=== PATIENT | male | born 1990 | race Caucasian/White ===

== ENCOUNTER 2021-03-23 10:15 | Emergency (ER) | payer OTHER, SELFPAY ==
--- NOTE | 2021-03-23 10:22 | ED_ITS ---
HPI - Overdose General Chief Complaint: Overdose Stated Complaint: heroin overdose, got narcan Time Seen by Provider: 03/23/21 10:22 Source: patient Mode of arrival: ambulatory Limitations: no limitations History of Present Illness HPI Narrative: 30-year-old presenting to the emergency department status post overdosing on heroin. Patient tells me he is homeless, he sniffed 1 bag of heroin just prior to his arrival, he tells me he did it because he was cold. He had no intent of suicide. Patient has no complaints, he tells me he feels well, he tells me that this was an accident. He denies anxiety, depression, visual, auditory, tactile hallucinations he also denies chest pain, shortness of breath, fevers cut when chills, nausea, vomiting, diarrhea. Patient was given Narcan by EMS. MD complaint: accidental overdose Onset (ago): hour(s) (1) Timing confirmed by: other (bystandard ) Related Data Previous Rx's Medication Instructions Recorded naloxone 4 mg/actuation nasal spray 4 mg INTRANASAL Q2M PRN #1 ea 03/23/21 Allergies Allergy/AdvReac Type Severity Reaction Status Date / Time No Known Allergies Allergy Unverified 12/01/19 16:59 Review of Systems Review of Systems: Constitutional : No Fever, No Chills ENT/Mouth : No sore throat, No Rhinorrhea Eyes: No Eye Pain, No Swelling, No Redness Cardiovascular : No Chest Pain, No SOB Respiratory : No Cough, No Sputum Gastrointestinal : No Nausea, No Vomiting, No Diarrhea, No abdominal Pain Genitourinary : No Dysuria, No Hematuria Musculoskeletal : No joint pain, No Myalgias, No Joint Swelling Skin : No Skin Lesions, No rash Neuro : No Weakness, No Numbness Psych : No Anxiety, No Depression, No SI/HI/AH/VH All other systems reviewed and are negative Yes all other systems are reviewed and are negative [facility] Past Medical History Attestation statement: The following information was validated with the patient. Source: old records reviewed and nursing notes reviewed Medical History (Updated 03/23/21 @ 10:30 by RUSS Beaulieu) Schizophrenia Surgical History (Updated 03/23/21 @ 10:30 by Junior Hooker) H/O wrist surgery Social History Social History Advance Directives: No Advance Directives Information Provided: Yes Physical Exam Vital Signs: Vital Signs: Last Vital Signs Pulse 89 03/23/21 10:27 Resp 16 03/23/21 10:27 BP 126/74 03/23/21 10:27 Pulse Ox 95 03/23/21 10:27 BMI result Body Mass Index 27.4 VSS Appearance: Alert.? Oriented X3.? No acute distress.? Head: Normocephalic, atraumatic, no step-offs or deformities Eyes: Pupils equal, round and reactive to light.? Bilateral pupils pinpoint. ENT: Pharynx normal.? Neck: Normal inspection.? Neck supple.? CVS: Normal heart rate and rhythm.? Pulses normal.? Respiratory: No respiratory distress.? Breath sounds normal.? Abdomen: Soft and nontender.? Skin: Skin warm and dry.? Normal skin color.? Normal skin turgor.? Extremities: No lower extremity edema.? No calf ttp. 5/5 strength to bilateral upper and lower extremities Back: No midline tenderness, no C-spine tenderness, full range of motion, no CVA tenderness bilaterally Neuro: Oriented X 3.? No motor deficit.? No sensory deficit. Cranial nerves 2- 12 intact. Course Reevaluation(s) Reevaluation #1: Patient is feeling well, still denying any medical complaints. At this time I feel comfortable discharge. Patient is stable. He is eating and drinking well. Regan spoke to patient and gave him information about detox [facility], he also provided patient with information of how to obtain a therapist as patient does not have 1. At this time patient is feeling well, he has no complaints. We gave him a sandwich, dry socks. I feel comfortable with discharging patient at this time. Time: 10:29 MDM - Overdose MDM Narrative Medical decision making narrative: 1028 30-year-old male presenting to the emergency department with a heroin overdose after sniffing 1 packet heroin. Accidental overdose. No SI or HI. Patient is homeless. I have offered him resources, and have offered for him to speak to somebody about a possible penitentiary. Patient tells me he is not interested, he tells me he does not on 11 a penitentiary. He has no medical complaints at this time. He was given Narcan 4 mg intranasal by EMS. Physical examination benign Plan at this time is to observe patient. Medical Records Attestation: I reviewed the patient's medical records. Lab Data Attestation: I reviewed the patient's lab results. Critical Care Time Critical Care Time Critical Care Time: No Discharge Plan Discharge Clinical Impression: Opiate overdose Patient Disposition: Home, Self-Care Instructions: Prescription Narcotic Overdose (ED) Additional Instructions: Take your medications as prescribed. If you were prescribed antibiotics today, it is important that you take your medication to their entirety, do not skip any doses, do not finish them early. Follow-up with your primary care provider this week. You were given information about [facility], and you are given information on how to obtain a therapist. Please call in use these resources. Return to the emergency department with new or worsening symptoms. In case of emergency call 911 I have sent Narcan to your pharmacy, this can save her life, or somebody else's. Prescriptions: New naloxone 4 mg/actuation spray,non-aerosol 4 mg intranasal Q2M PRN (Reason: opioid overdose) Qty: 1 RF: 0
[2021-03-23 10:27] VITALS: BP 126/74; PULSE 89; RESP 16; O2SAT 95; BMI 27.4
--- NOTE | 2021-03-23 11:17 | HO.SUDE ---
Recovery Support note: Patient is a 30 year old Filipino speaking male who presented to [facility] after an accidental overdose. Patient reports he used to stay warm because he did not want to go to a alf as he has had poor experiences with shelters in the past. Patient reports he does not use frequently and that he decided several days ago to stop using all drugs. Patient reports no alcohol use. Patient reports one previous overdose. Patient states he went to [facility] 4-5 years ago for treatment and found it helpful. Patient is agreeable to going back for treatment however no beds are available at this time. Patient reports he has never been on methadone or Suboxone and reports he does not use heroin frequently or consistently. Patient reports he has never experienced withdrawal symptoms. Patient accepted information on [facility] and ATS facilities. Encouraged patient to go to [facility] on Thursday to work with a curriculum coach to get into treatment and connected with resources. Patient acknowledged Patient expressed interest in getting connected with a therapist. Patient accepted information on outpatient therapy clinics. Unable to accept referral due to not having a cell phone. Discussed substance use treatment options and multiple pathways to recovery. Patient was receptive of information provided.
--- NOTE | 2021-03-23 12:25 | PC.NURSE ---
PT EATING AND DRINKING HE IS NODDING OFF. PLAN IS FOR DISCHARGE WHEN MORE AWAKE
== END 2021-03-23 12:34 | disposition home or self-care (01) ==
PROVIDERS: Emergency Provider Internal Medicine
DX: T40.1X1A Poisoning by heroin, accidental (unintentional), initial encounter (principal); Y92.410 Unspecified street and highway as the place of occurrence of the external cause; Z59.00 Homelessness unspecified
CPT/HCPCS: 99282; 99283

== ENCOUNTER 2021-04-04 19:17 | Emergency (ER) | payer OTHER, SELFPAY ==
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
[2021-04-04 19:52] VITALS: BP 126/82; PULSE 72; RESP 18; O2SAT 100; BMI 28.3
[2021-04-04 20:10] VITALS: BP 114/64; PULSE 66; RESP 18; TEMP 36.6; O2SAT 98
[2021-04-04 20:34] LABS: COVID-19 Test Positive (Negative)
--- NOTE | 2021-04-04 20:39 | HO.SUDE ---
CARE Team met with pt to offer SUDE and to see if pt is interested in treatment resources. Pt originally agreed to participate in SUDE, however, his altered mental status prevented him from engaging in SUDE at this time. Pt indicated that he would like to speak with a project coach and that he is interested in treatment resources. CARE Team informed project coach, Frederic, about pt's desire to speak with him when pt is more alert.
--- NOTE | 2021-04-04 20:50 | MHC.RECOVSUP ---
Met with Pt. he stated that he would like to go to detox.As I started to see if I could find a bed for Pt. The doctor came and told me that the Pt. is positive for covid.At this time the doctor decided to call [facility] for a assessment. Pt. is waiting for [facility] at this time.
[2021-04-04] MEDS: Ondansetron ODT 4 MG TAB.RAPDIS TRANSLINGU (20:56)
[2021-04-04 21:32] VITALS: BP 112/63; PULSE 58; RESP 11; TEMP 36.4; O2SAT 97
[2021-04-04 22:21] VITALS: BP 102/56; PULSE 56; RESP 9; TEMP 36.6; O2SAT 96
--- NOTE | 2021-04-05 00:09 | PC.NURSE ---
Report given to Keke RN, pt ambulatory to pod via security. Belongings remain in decon
--- NOTE | 2021-04-05 00:28 | PC.NURSE ---
Pt received in pod without issues, ambulating steady on his feet. Denies chest pain or SOB. Vitals stable. Pt changed over to pod gown and urine collected. Pt resting in bed in 1, will continue to monitor.
[2021-04-05 00:46] LABS: Amphetamine Screen Urine Not Detected (Not Detect); Barbiturates, Urine Not Detected (Not Detect); Benzodiazepines Screen Urine Not Detected (Not Detect); Cannabinoid Screen Urine POSITIVE (Not Detect); Cocaine Screen Urine POSITIVE (Not Detect); Fentanyl, urine POSITIVE (Not Detect); Opiate Screen Urine POSITIVE (Not Detect); Phencyclidine Screen Urine Not Detected (Not Detect)
[2021-04-05 02:32] VITALS: BP 118/71; PULSE 78; RESP 17; TEMP 36.7; O2SAT 100
--- NOTE | 2021-04-05 06:59 | PC.NURSE ---
patient appears to remain asleep at present, respirations are even and unlabored patient appears in no distress
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
--- NOTE | 2021-04-05 11:44 | MHC.CARE ---
CARE Team left voicemail for [facility]
--- NOTE | 2021-04-05 17:09 | PC.NURSE ---
Patient is resting comfortably in bed no s/s of sob or distress. will continue to monitor.
[2021-04-05 23:41] VITALS: BP 138/69; PULSE 77; RESP 18; TEMP 36.9; O2SAT 98
--- NOTE | 2021-04-06 06:23 | PC.NURSE ---
Patient slept through the night, no distress observed/reported, asymptomatic of withdrawal at this time, patient covid +. care team coordinating assisted bed search, pending bed search, VSS, currently not on nay medication, VSS, will continue to monitor.
== END 2021-04-06 10:57 | disposition other institution (70) ==
PROVIDERS: Physician Assistant; Emergency Provider Internal Medicine
DX: U07.1 COVID-19 (principal); T40.1X1A Poisoning by heroin, accidental (unintentional), initial encounter; Y92.89 Other specified places as the place of occurrence of the external cause; Z72.89 Other problems related to lifestyle; Z59.00 Homelessness unspecified; F41.9 Anxiety disorder, unspecified; F32.A Depression, unspecified; F20.9 Schizophrenia, unspecified
CPT/HCPCS: 80307; 87635; 99285

== ENCOUNTER 2021-06-10 00:27 | Emergency (ER) | payer OTHER, SELFPAY ==
[2021-06-10 00:42] VITALS: BP 101/52; PULSE 90; RESP 18; TEMP 37.7; O2SAT 94; BMI 26.6
[2021-06-10 02:24] LABS: MANUAL DIFF FLAG NO
[2021-06-10 02:25] LABS: Basophils Percent Auto 0.2 % (0-2); Eosinophils Absolute Auto 0.1 X10*3/uL (0.0-0.4); Hematocrit 40.9 % (42.0-52.0); Imm Gran Abs Auto 0.02 X10*3/uL (0.00-0.03); Imm Gran Pct Auto 0.2 % (0.0-0.4); Lymphocytes Absolute Auto 3.1 X10*3/uL (1.2-4.9); Lymphocytes Percent Auto 24.5 % (20-40); Mean Corpuscular HGB Conc 31.8 g/dl (31.0-36.0); Mean Corpuscular Hemoglobin 27.5 pg (27.0-33.0); Mean Corpuscular Volume 86.5 fL (80.0-98.0); Mean Platelet Volume 10.2 fL (9.4-12.4); Monocytes Percent Auto 8.1 % (2-11); Neutrophils Absolute Auto 8.3 x10*3/uL (2.0-8.3); Platelet Count 254 X10*3/uL (160-400); Red Blood Count 4.73 X10*6/uL (4.60-5.80); Red Cell Distribution Width 13.4 % (11.0-16.0); White Blood Count 12.5 X10*3/uL (4.8-10.8)
[2021-06-10 02:37] VITALS: BP 118/67; PULSE 74; RESP 14; TEMP 36.9; O2SAT 98
[2021-06-10 02:47] LABS: Alanine Aminotransferase 20 U/L (0-40); Albumin Level 4.4 g/dL (3.5-5.0); Alkaline Phosphatase 52 U/L (39-117); Anion Gap 14 (12-20); Aspartate Amino Transferase 24 U/L (5-37); Bilirubin Direct < 0.2 mg/dL (0.0-0.5); Bilirubin Total 0.4 mg/dL (0.0-1.0); Blood Urea Nitrogen 15 mg/dL (9-16); Calcium 9.4 mg/dL (8.4-10.2); Carbon Dioxide 27 mmol/L (22-29); Chloride 103 mmol/L (96-108); Creatinine Clr Calc Pharmacy 88.6; Estimated Glomerular Filt Rate > 60; Glucose Random 91 mg/dL (60-115); Lipase 11 U/L (8-78); Potassium 3.7 mmol/L (3.3-5.1); Sodium 140 mmol/L (135-145); Total Protein 8.1 g/dL (6.5-8.0)
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
--- NOTE | 2021-06-10 03:28 | PC.NURSE ---
pt c/o generalized rt sided abd pain, somewhat erractic with his story on how pain presented. initally pt stated 3 days of abd pain, then stated that he hasnt eaten in 5 days. pt asking if he put himself at risk for figuring out that the ariane vincent wasnt real continued to go on that he was at a zoo, and looking in the sewers and saw a crocodile. pt stated that when he was sleeping in his tent he could feel animals from his feet to his head. pt states that was the last time he was at his tent. when asked where he is living now, pt states I make it work
--- NOTE | 2021-06-10 04:13 | ED.GENADULT ---
HPI - General Adult General Chief complaint: Abdominal Pain Stated complaint: Stomach Pain, requests details on stroke? Time Seen by Provider: 06/10/21 04:05 Source: patient Mode of arrival: ambulatory Limitations: no limitations History of Present Illness HPI narrative: 31-year-old male who presents emergency department for evaluation of left facial numbness. The patient states that he has been having numbness on the left side of his face. He states he is having difficulty spitting straight and he is having difficulty whistling. States that he saw his PCP several days ago and the PCP told him to go to the emergency department. the patient has no other complaints. He denied fever, chills, chest pain, shortness of breath, cough, abdominal pain, nausea, vomiting, weakness, numbness of his extremities. The patient states that he does have a history of depression, anxiety and schizophrenia, he states that he has not been started on any new medications. complaint: Left facial numbness Onset (ago): day(s) ( 3) Location: face ( left side) Radiation: non-radiation Severity: moderate Severity scale (1-10): 3 Quality: other ( numbness) Pain Consistency: constant Relieving factors: none Exacerbating factors: none Associated symptoms: other ( difficulty whistling, difficulty spitting) Treatments prior to arrival: none Related Data Home Medications Medication Instructions Recorded Confirmed olanzapine 15 mg tablet 2 tab PO BEDTIME 06/10/21 06/10/21 trazodone 50 mg tablet 1 tab PO BEDTIME PRN 06/10/21 06/10/21 Allergies Allergy/AdvReac Type Severity Reaction Status Date / Time No Known Allergies Allergy Unverified 12/01/19 19:50 [No Known Allergies*] Review of Systems Review of Systems: Yes all other systems are reviewed and are negative [facility] Past Medical History [facility] Narrative: past medical history: Depression, anxiety, schizophrenia. Social history: He smokes 1 pack of cigarettes per day x2 years. He states that he only occasionally drinks alcohol. States that he uses crack cocaine and last used 3 weeks ago. He states that he smokes marijuana daily. Medical History Depression No known health problems Social History Social History Advance Directives: No Advance Directives Information Provided: Yes Physical Exam ED Vital Signs: Vital Signs - 24 hr 06/10/21 00:42 06/10/21 02:37 Temperature 99.8 F 98.4 F Pulse Rate 90 74 Respiratory Rate 18 14 Blood Pressure 101/52 L 118/67 Pulse Oximetry 94 98 BMI result Body Mass Index 26.6 Const General: cooperative and no acute distress Orientation/consciousness: oriented to person and oriented to place Limitations: no limitations HENMT Head: Yes normal to inspection, Yes normocephalic and Yes atraumatic Ears: external ears normal General nose exam: Normal external nose present Face and sinus: Yes normal facial exam Mouth: Normal oral and palatal mucosa present Throat: Yes posterior oropharynx normal Eyes General: appearance normal, both eyes and all related structures Pupils: Equal, round and reactive pupils present Neck Neck: Yes normal visual inspection, Yes no lymphadenopathy, Yes trachea midline and Yes supple Chest Chest palpation & inspection: normal inspection of the chest and normal palpation of entire chest wall Resp Effort & Inspection: normal respiratory effort and able to speak in complete sentences Auscultation: clear to auscultation bilaterally Cardio Rate: regular rate Rhythm: regular rhythm Heart sounds: S1 normal heart sound present, S2 normal heart sound present and no murmurs GI Inspection: Yes normal to inspection Palpation (GI): Soft to palpation, nontender and no guarding Auscultation: normal bowel sounds General: Yes no CVA tenderness Back/Spine/Pelvis Back: no CVA tenderness Skin General skin exam: no rashes or lesions noted Neuro General: oriented to person and oriented to place Cranial nerves: Yes CN's II-XII intact bilaterally and Yes Equal, round and reactive pupils present Cognition (Neuro): normal cognition Motor exam (neuro): 5/5 motor strength present throughout Extrem General: Yes normal to inspection Psych Appearance: grossly normal Speech and movement: Normal speech and movement present Affect: normal affect Attitude: cooperative Course Course Course Narrative: 31-year-old male who presents emergency department for evaluation of left sided facial numbness x3 days. Patient's vital signs were normal. Patient's physical examination was unremarkable with normal cranial nerve exam and a normal neurologic exam. At this time, I do not think the patient has had a stroke or Terry's palsy. Patient's symptoms may be related to his underlying psychiatric condition/schizophrenia. At this time, I do not think the patient needs any further treatment I did discuss this with him. The patient was discharged home. Medical Decision Making Lab Data Result diagrams: 06/10/21 02:20 06/10/21 02:20 Labs: Lab Results 06/10/21 06/10/21 Range/Units 02:20 02:20 WBC 12.5 H (4.8-10.8) X10*3/uL RBC 4.73 (4.60-5.80) X10*6/uL Hgb 13.0 L (14.0-18.0) g/dl Hct 40.9 L (42.0-52.0) % MCV 86.5 (80.0-98.0) fL MCH 27.5 (27.0-33.0) pg MCHC 31.8 (31.0-36.0) g/dl RDW 13.4 (11.0-16.0) % Plt Count 254 (160-400) X10*3/uL MPV 10.2 (9.4-12.4) fL Immature Gran % (Auto) 0.2 (0.0-0.4) % Neut % (Auto) 66.0 (45-73) % Lymph % (Auto) 24.5 (20-40) % [place] % (Auto) 8.1 (2-11) % Eos % (Auto) 1.0 (0-4) % Baso % (Auto) 0.2 (0-2) % Lymph # (Auto) 3.1 (1.2-4.9) X10*3/uL [place] # (Auto) 1.0 (0.1-1.2) X10*3/uL Eos # (Auto) 0.1 (0.0-0.4) X10*3/uL Baso # (Auto) 0.0 (0.0-0.2) X10*3/uL Abs Immat Gran (auto) 0.02 (0.00-0.03) X10*3/uL Absolute Neuts (auto) 8.3 (2.0-8.3) x10*3/uL Absolute Nucleated RBC 0.000 (0.0-0.012) X10*3/uL Nucleated RBC % (auto) 0.0 (0.0-0.2) /100WBC Sodium 140 (135-145) mmol/L Potassium 3.7 (3.3-5.1) mmol/L Chloride 103 (96-108) mmol/L Carbon Dioxide 27 (22-29) mmol/L Anion Gap 14 (12-20) BUN 15 (9-16) mg/dL Creatinine 1.06 (0.5-1.4) mg/dL Estim Creat Clear Calc 88.6 Estimated GFR > 60 Random Glucose 91 (60-115) mg/dL Calcium 9.4 (8.4-10.2) mg/dL Total Bilirubin 0.4 (0.0-1.0) mg/dL Direct Bilirubin < 0.2 (0.0-0.5) mg/dL AST 24 (5-37) U/L ALT 20 (0-40) U/L Alkaline Phosphatase 52 (39-117) U/L Total Protein 8.1 H (6.5-8.0) g/dL Albumin 4.4 (3.5-5.0) g/dL Lipase 11 (8-78) U/L Discharge Plan Discharge Clinical Impression: Left facial numbness Patient Disposition: Home, Self-Care Additional Instructions: your physical examination is normal. At this time, I do not think that you had a stroke and that your symptoms should get better over time. Follow-up with your doctor in 2 days. Please return to the emergency department if your symptoms get worse or if you develop any symptoms that are concerning to you. Prescriptions: No Action trazodone 50 mg tablet 1 tab PO BEDTIME PRN (Reason: insomnia) 0RF olanzapine 15 mg tablet 2 tab PO BEDTIME 0RF
== END 2021-06-10 04:58 | disposition home or self-care (01) ==
PROVIDERS: Emergency Provider Emergency Medicine Emergency Medical Services
DX: R20.0 Anesthesia of skin (principal); F20.9 Schizophrenia, unspecified; F41.9 Anxiety disorder, unspecified; F32.A Depression, unspecified; F14.90 Cocaine use, unspecified, uncomplicated; F12.90 Cannabis use, unspecified, uncomplicated; F17.200 Nicotine dependence, unspecified, uncomplicated; Z79.899 Other long term (current) drug therapy
CPT/HCPCS: 36415; 80048; 80076; 83690; 85025; 99283; 99284

== ENCOUNTER 2023-01-21 21:17 | Inpatient (IN) | payer OTHER, SELFPAY ==
[2023-01-21 21:24] VITALS: BP 147/84; PULSE 90; RESP 16; TEMP 38.1; O2SAT 95; BMI 34.9
--- NOTE | 2023-01-21 21:30 | ED_ITS ---
HPI - Psych General Chief Complaint: Psychiatric Symptoms Stated Complaint: HEARING VOICES,SCHIZOPHRENIC, HASNT TAKEN MEDS Time Seen by Provider: 01/21/23 21:20 Source: patient and old records reviewed Mode of arrival: EMS Limitations: no limitations History of Present Illness HPI Narrative: 32 yo male with PMH of schizophrenia states he hasn't taken his medications in a few weeks and was actually reported missing. He has been sleeping outside and stuffing his clothes with toilet paper to stay warm. He was found at [facility]. He reports AH/VH and SI thoughts. He has no medical complaints. He is calm and cooperative. MD complaint: suicidal ideation and hallucinations Onset (ago): week(s) Duration: getting worse History of same: Yes Relieving factors: none Exacerbating factors: other Context: not taking psychiatric medications Associated psychiatric symptoms: suicidal ideation, auditory hallucinations and visual hallucinations Associated symptoms: denies other symptoms Treatments prior to arrival: placed on mental health hold If self harm: admits thoughts of self harm Related Data Home Medications Medication Instructions Recorded Confirmed divalproex 500 mg tablet,delayed 500 mg PO BID 01/21/23 01/21/23 release nicotine (polacrilex) 2 mg gum 2 mg PO Q2H PRN Nicotine Cravings 01/21/23 01/21/23 olanzapine 10 mg disintegrating 10 mg PO BEDTIME 01/21/23 01/21/23 tablet Allergies Allergy/AdvReac Type Severity Reaction Status Date / Time No Known Allergies Allergy Unverified 01/21/23 12:49 Review of Systems Review of Systems: Constitutional : No Fever, No Chills ENT/Mouth : No Ear Pain, No Nasal Congestion, No sore throat Eyes: No Eye Pain, No Swelling, No Redness Cardiovascular : No Chest Pain, No SOB Respiratory : No Cough, No Sputum, No Dyspnea Gastrointestinal : No Nausea, No Vomiting, No Diarrhea, No Hematochezia, No Melena Genitourinary : No Dysuria, No Urinary Frequency, No Hematuria Musculoskeletal : No Myalgias Skin : No Skin Lesions, No rash Neuro : No Weakness, No Numbness, No Paresthesias, No Dizziness, No Headache Psych : positive Anxiety, positive Depression, positive SI, no HI, pos AH/VH Heme/Lymph: No Lymphadenopathy Endocrine : No Polyuria, No Polydipsia All other systems reviewed and are negative [facility] Past Medical History Attestation statement: The following information was validated with the patient. Source: old records reviewed Medical History Depression No known health problems Schizophrenia Surgical History H/O wrist surgery Social History Social History Patient Tobacco Use Status: Tobacco use Unknown Substance Use Type: Heroin Physical Exam Vital Signs: Vital Signs: Last Vital Signs Temp 100.5 F H 01/21/23 21:24 Pulse 90 01/21/23 21:24 Resp 16 01/21/23 21:24 BP 147/84 H 01/21/23 21:24 Pulse Ox 95 01/21/23 21:24 O2 Del Method Room Air 01/21/23 21:24 BMI result Body Mass Index 34.9 Appearance: Alert. Oriented X3. No acute distress. calm and cooperative Eyes: Pupils equal, round and reactive to light. ENT: Pharynx normal. Neck: Normal inspection. Neck supple. CVS: Normal heart rate and rhythm. Pulses normal. Respiratory: No respiratory distress. Breath sounds normal. Abdomen: Soft and nontender. Skin: Skin warm and dry. Normal skin color. Normal skin turgor. Extremities: No lower extremity edema. No calf ttp Neuro: Oriented X 3. No motor deficit. No sensory deficit. CN2-12 intact Course Course Course Narrative: Physician observation started at 1002pm. Patient placed in physician observation because the patient needed more time for CARE team to assess the need for psych admission. At the time observation was started the patient's vitals were stable, patient is alert and oriented, Neuro: nonfocal, CV RRR, Lungs clear Medical Decision Making Medical Decision Making MDM Narrative: 32 yo male with schizophrenia here with c/o AH/VH, SI was a missing person not taking his medications sleeping outside at this time will obtain labs and place on S12. Refer to CARE team. Differential Diagnosis Differential Diagnoses: The differential diagnosis associated with the presentation includes schizophrenia, SI Admission/Observation Consideration of admission/observation: Escalation of care including admission/observation considered observe until seen by CARE team Consult Healthcare Provider Management of the patient was discussed with: Behavioral Health Provider Lab Data [facility] Lab Attestation statement: I reviewed the patient's lab results. Independent Historian Clinical information obtained from an independent historian. History obtained from or confirmed by: EMS External Record Review External record reviewed: Inpatient record Social Determinants Patient?s care significantly limited by Social Determinants of Health including: Inadequate housing and Problems related to primary support group Discharge Plan Discharge Clinical Impression: Suicidal ideation Patient Disposition: Still a Patient Prescriptions: No Action nicotine (polacrilex) 2 mg gum 2 mg PO Q2H PRN (Reason: Nicotine Cravings) divalproex 500 mg tablet,delayed release (DR/EC) 500 mg PO BID olanzapine 10 mg tablet,disintegrating 10 mg PO BEDTIME
[2023-01-21] MEDS: Acetaminophen 325 MG TABLET 650 MG PO (22:44)
[2023-01-21 22:52] LABS: COVID-19 Test Negative (Negative); IDNOW Serial# BCCEAD1C
[2023-01-21 22:53] LABS: IDNOW Serial# 08D9AD1C; Influenza A Negative (Negative); Influenza B2 Negative (Negative)
--- NOTE | 2023-01-22 | ECG_ITS ---
Test Reason : CHECK QT Blood Pressure : / mmHG Vent. Rate : 054 BPM Atrial Rate : 054 BPM P-R Int : 156 ms QRS Dur : 104 ms QT Int : 406 ms P-R-T Axes : -10 023 005 degrees QTc Int : 385 ms Sinus bradycardia RSR' or QR pattern in V1 suggests right ventricular conduction delay Otherwise normal ECG When compared with ECG of 17-JAN-2014 21:31, No significant change was found Referred By: Sonya Gross Electronically Signed By:BUCK AVILA MD
[2023-01-22 00:19] LABS: Basophils Absolute Auto 0.1 X10*3/uL (0.0-0.2); Basophils Percent Auto 0.4 % (0-2); Eosinophils Absolute Auto 0.6 X10*3/uL (0.0-0.4); Eosinophils Percent Auto 5.1 % (0-4); Hematocrit 38.9 % (42.0-52.0); Hemoglobin 12.8 g/dl (14.0-18.0); Imm Gran Abs Auto 0.04 X10*3/uL (0.00-0.03); Imm Gran Pct Auto 0.4 % (0.0-0.4); Lymphocytes Absolute Auto 3.7 X10*3/uL (1.2-4.9); Lymphocytes Percent Auto 32.7 % (20-40); MANUAL DIFF FLAG NO; Mean Corpuscular HGB Conc 32.9 g/dl (31.0-36.0); Mean Corpuscular Hemoglobin 27.8 pg (27.0-33.0); Mean Corpuscular Volume 84.4 fL (80.0-98.0); Mean Platelet Volume 10.5 fL (9.4-12.4); Monocytes Absolute Auto 1.2 X10*3/uL (0.1-1.2); Monocytes Percent Auto 10.9 % (2-11); Neutrophils Absolute Auto 5.7 x10*3/uL (2.0-8.3); Neutrophils Percent Auto 50.5 % (45-73); Platelet Count 280 X10*3/uL (160-400); Red Blood Count 4.61 X10*6/uL (4.60-5.80); Red Cell Distribution Width 13.1 % (11.0-16.0); White Blood Count 11.3 X10*3/uL (4.8-10.8)
[2023-01-22 00:40] LABS: Carbon Dioxide 26 mmol/L (22-29); Chloride 104 mmol/L (96-108); Potassium 3.7 mmol/L (3.3-5.1); Sodium 141 mmol/L (135-145)
[2023-01-22 00:41] LABS: Alanine Aminotransferase 14 U/L (0-40); Albumin Level 4.9 g/dL (3.5-5.0); Alkaline Phosphatase 62 U/L (39-117); Anion Gap 15 (12-20); Aspartate Amino Transferase 18 U/L (5-37); Bilirubin Total 0.3 mg/dL (0.0-1.0); Blood Urea Nitrogen 16 mg/dL (9-16); Calcium 10.1 mg/dL (8.4-10.2); Creatinine Clr Calc Pharmacy 91.5; Estimated Glomerular Filt Rate > 60; Glucose Random 84 mg/dL (60-115); Total Protein 8.9 g/dL (6.5-8.0)
[2023-01-22 00:42] LABS: Amphetamine Screen Urine Not Detected (Not Detect); Barbiturates, Urine Not Detected (Not Detect); Benzodiazepines Screen Urine Not Detected (Not Detect); Cocaine Screen Urine Not Detected (Not Detect); Opiate Screen Urine Not Detected (Not Detect); Phencyclidine Screen Urine Not Detected (Not Detect)
[2023-01-22 00:42] LABS: Ethanol < 10 mg/dL
[2023-01-22 00:43] LABS: Cannabinoid Screen Urine POSITIVE (Not Detect); Fentanyl, urine Not Detected (Not Detect)
--- NOTE | 2023-01-22 05:51 | PC.NURSE ---
Patient slept through the night, no distress observed/reported, behavior non concerning, thought content paranoid, med rec completed/pending provider's approval, labs completed/resulted, disposition per care team is section-12 inpatient bed search, VSS, will continue to monitor.
[2023-01-22 06:26] VITALS: BP 95/45; PULSE 54; RESP 17; TEMP 36.8; O2SAT 98
--- NOTE | 2023-01-22 07:03 | PC.NURSE ---
patient appears to remain asleep at present respirations are even and unlabored patient appears in no distress
--- NOTE | 2023-01-22 11:47 | PC.NURSE ---
client making agitated statements to air stating hes the charge and just self dialoguing to air. client offered medication t/w stated you sound irritable client just continues to talk to self. hindu theme with content.
[2023-01-22 11:56] LABS: Appearance Urine Clear; Color Urine Yellow; Glucose Urine UA Negative (Negative); Leukocyte Esterase Urine Negative (Negative); Nitrite Urine Negative (Negative); PH 5.5 (5.0-9.0); Specific Gravity - Urine >= 1.030 (1.005-1.025); UMIC TRIGGER UACC YES; Urine Blood Negative (Negative); Urine Ketones Trace mg/dL (Negative); Urine Protein 30 (1+) mg/dL (Neg-Trace)
[2023-01-22 11:59] LABS: Bacteria Urine None Seen (None Seen); Hyaline Casts Urine 0-2 /LPF (0-2); RBC Urine 0-2 /HPF (0-2); Squamous Epithelial Cell Urine 0-2 /HPF (0-2); WBC Urine 0-5 /HPF (0-5)
[2023-01-22] MEDS: LORazepam 1 MG TABLET 2 MG PO (12:22)
[2023-01-22] MEDS: Ziprasidone 20 MG CAPSULE PO (12:22)
--- NOTE | 2023-01-22 15:17 | PHA.MEDREC ---
Pharmacy Consult ? Medication Reconciliation Pharmacy has reviewed the medication reconciliation completed by nursing.
--- OUTSIDE RECORDS SUMMARY | 2023-01-22 15:49 | XMS_ITS | Continuity of Care Document ---
Author Name Unknown Organization [facility] Adult Address [address] [place] [address]- Care Team Providers Care Slurry Plant Operator Name Role Phone Davina PERRY, Located Within [facility] Primary Care Physician ( [phone] Encounter [facility] [place] Date(s): 05/20/21 - 05/27/[address] [address]- Attending Physician: Davina PERRY Located Within [facility] Allergies, Adverse Reactions, Alerts No Known Allergies Immunizations Given and Recorded Vaccine Date Status Refusal Reason tetanus/diphtheria/pertussis, acel(Tdap) 1 04/22/21 Given influenza virus vaccine, inactivated 04/02/21 Damon rded influenza virus vaccine, inactivated 12/07/19 Give n SARS-CoV-2 (COVID-19) mRNA-1273 vaccine 04/02/21 R ecorded pneumococcal 23-valent vaccine 12/21/18 Given Not Given Vaccine Date Status Refusal Reason pneumococcal 23-valent vaccine 01/30/16 Not Given Patient Refuses 1Result Comment: [id number] Medications olanzapine 15 mg oral tablet 2 tablet = 30 mg, By Mouth, Daily at bedtime, # 60 tablet, 0 Refills, Maintenance, 04/22/21 14:59:00 EST, Tablet, [id number], Partial fill upon patient request if the prescription is for a schedule II opioid drug., 165, cm, 04/22/21 14:36:00 E... Start Date: 04/22/21 Status: Ordered traZODone 50 mg oral tablet 50 mg, 1, tablet, By Mouth, Daily at bedtime, PRN, # 30 tablet, Refills 0, Tot. Refills 0, Maintenance, Insomnia, 04/22/21 14:59:00 EST, Route to Pharmacy Electronically, [facility] #[id number], Partial fill upon patient request if the prescription is for... Start Date: 04/22/21 Status: Ordered Problem List Condition Effective Dates Status Health Status Inform ant Abnormal liver function(Confirmed) Active Bipolar disorder(Confirmed) Active Insomnia(Confirmed) Active Seasonal affective disorder(Confirmed) Active Social History Social History Type Response Smoking Status 10 or more cigarette s (1/2 pack or more)/day in last 30 days; Other: pack a day; entered on: 12/12/19 Sex
--- OUTSIDE RECORDS SUMMARY | 2023-01-22 15:49 | XMS_ITS | Continuity of Care Document ---
Author Name Unknown Organization [facility] ter Address [address] [place] [id number]- Care Team Providers Care Customs Brokerage Manager Name Role Phone Davina PERRY, [facility] Primary Care Physician ( [phone] Encounter [facility] [place] Date(s): 04/14/19 - 04/14/[address] [address]- [facility] Attending Physician: Betzaida Ghosh MD Allergies, Adverse Reactions, Alerts Substance Reaction Severity Status NKA Active Immunizations Given and Recorded Vaccine Date Status Refusal Reason pneumococcal 23-valent vaccine 12/21/18 Given Not Given Vaccine Date Status Refusal Reason pneumococcal 23-valent vaccine 01/30/16 Not Given Patient Refuses Medications hydrOXYzine hydrochloride 50 mg oral tablet 1 tablet, By Mouth, 2 times a day, PRN NEEDED FOR ANXIETY, # 60 tablet, 0 Refills, Acute, 04/07/19 12:28:00 EST, [id number], 166, cm, 03/10/19 14:52:00 EST, Height, 75.6, kg, 12/20/18 12:33:00 EDT, Dry Weight Start Date: 04/07/19 Status: Ordered naloxone 4 mg/0.1 mL nasal spray = 4 mg, Naris, Right, Once, # 2 each, 0 Refills, Soft Stop, 12/21/18 16:30:00 EDT Start Date: 12/21/18 Status: Ordered olanzapine 20 mg oral tablet 1 tablet = 20 mg, By Mouth, Daily, # 30 tablet, 1 Refills, Maintenance, 04/01/19 16:19:00 EST, Tablet, [id number], 166, cm, 03/10/19 14:52:00 EST, Height, 75.6, kg, 12/20/18 12:33:00 EDT, DryWeight Start Date: 04/01/19 Status: Ordered traZODone 50 mg oral tablet 50 mg, 1, tablet, By Mouth, Daily at bedtime, PRN, Appt required for further refills, # 30 tablet, Refills 5, Tot. Refills 5, Maintenance, Insomnia, 04/01/19 16:19:00 EST, Route to Pharmacy Electronically, [facility]/pharmacy #[id number], 166, cm, 03/10/19 14:52:0... Start Date: 04/01/19 Status: Ordered VITAMIN D3 1,000 UNIT SOFTGEL TAKE ONE CAPSULE BY MOUTH EVERY DAY Start Date: 03/10/19 Status: Ordered Vitamin D3 1000 intl units oral tablet 1 tablet = 1,000 International_Units, By Mouth, Daily, # 30 tablet, 0 Refills, Maintenance, 03/10/19 15:16:00 EST, Tablet, [facility]/pharmacy #[id number], 166, cm, 03/10/19 14:52:00 EST, Height, 75.6, kg, 12/20/18 12:33:00 EDT, Dry Weight Start Date: 03/10/19 Status: Ordered Problem List Condition Effective Dates Status Health Status Inform ant Bipolar disorder(Confirmed) Active Insomnia(Confirmed) Active Seasonal affective disorder(Confirmed) Active Social History Social History Type Response Smoking Status Former smoker, quit more than 30 days ago; Other: stopped 6 weeks ago; entered on: 03/10/19 Sex
--- OUTSIDE RECORDS SUMMARY | 2023-01-22 15:49 | XMS_ITS | Continuity of Care Document ---
Author Name Unknown Organization [facility] Adult Address [address] [place] [address]- Care Team Providers Care Mix Mill Tender Name Role Phone Davina PERRY, [facility] Primary Care Physician Encounter [facility] [place] Date(s): 08/01/21 - 08/31/21 [facility] Adult [address] [place] [id number]- Allergies, Adverse Reactions, Alerts No Known Allergies Immunizations Given and Recorded Vaccine Date Status Refusal Reason tetanus/diphtheria/pertussis, acel(Tdap) 1 04/22/21 Given influenza virus vaccine, inactivated 04/02/21 Damon rded influenza virus vaccine, inactivated 12/07/19 Give n SARS-CoV-2 (COVID-19) mRNA-3323 vaccine 04/02/21 R ecorded pneumococcal 23-valent vaccine 12/21/18 Given Not Given Vaccine Date Status Refusal Reason pneumococcal 23-valent vaccine 01/30/16 Not Given Patient Refuses 1Result Comment: [id number] Medications haloperidol 10 mg oral tablet 10 mg, 1, tablet, By Mouth, 2 times a day, # 60 tablet, Refills 0, Tot. Refills 0, Maintenance, 08/19/21 16:26:00 EDT, Do Not Route, Partial fill upon patient request if the prescription is for a schedule II opioid drug. Start Date: 08/19/21 Status: Ordered lithium 450 mg oral tablet, extended release 1 tablet = 450 mg, By Mouth, 2 times a day, # 60 tablet, 0 Refills, Maintenance, 08/19/21 16:26:00 EDT, ER Tablet, Partial fill upon patient request if the prescription is for a schedule II opioid drug. Start Date: 08/19/21 Status: Ordered Problem List Condition Effective Dates Status Health Status Inform ant Abnormal liver function(Confirmed) Active Bipolar disorder(Confirmed) Active Chronic hepatitis C(Confirmed) Active Insomnia(Confirmed) Active Seasonal affective disorder(Confirmed) Active Social History Social History Type Response Smoking Status 10 or more cigarette s (1/2 pack or more)/day in last 30 days; Other: pack a day; entered on: 12/12/19 Sex
--- OUTSIDE RECORDS SUMMARY | 2023-01-22 15:49 | XMS_ITS | Continuity of Care Document ---
Author Name Unknown Organization [facility] Adult Address [address] [place] [address]- Care Team Providers Care Care Transition Coordinator Name Role Phone Davina PERRY, [facility] Primary Care Physician Encounter [facility] [place] Date(s): 06/13/21 - 10/11/21 [facility] Adult [address] [place] [address]- Attending Physician: Davina PERRY [facility] Allergies, Adverse Reactions, Alerts No Known Allergies [...] 01/30/16 Not Given Patient Refuses 1Result Comment: [id number] Medications haloperidol 10 mg oral tablet 10 [...]
--- OUTSIDE RECORDS SUMMARY | 2023-01-22 15:49 | XMS_ITS | Continuity of Care Document ---
Author Name Unknown Organization [facility] Adult Address [address] [place] [address]- Care Team Providers Care Refund Specialist Name Role Phone Davina PERRY, [facility] Primary [facility] Phys[facility] [place] [facility] [place](s): 10/14/21 - 10/21/21 [facility] Adult [address] [place] [phone]- Encounter Diagnosis Bipolar disorder(Discharge Diagnosis) - 10/14/21 Chronic hepatitis C(Discharge Diagnosis) - 10/14/21 Insomnia(Discharge Diagnosis) - 10/14/21 Severe major depression(Discharge Diagnosis) - 10/14/21 Annual physical exam(Discharge Diagnosis) - 10/14/21 Attending Physician: Davina PERRY, [facility] Allergies, Adverse Reactions, Alerts No Known [...] 01/30/16 Not Given Patient Refuses 1Result Comment: [id number] Medications haloperidol 10 mg oral tablet 10 mg, 1, tablet, By Mouth, 2 times a day, # 60 tablet, Refills 0, Tot. Refills 0, Maintenance, 10/14/21 10:48:00 EDT, Route to Pharmacy Electronically, [facility]/pharmacy #[id number], Partial fill upon patient request if the prescription is for a schedule II opi... Start Date: 10/14/21 Status: Ordered lithium 450 mg oral tablet, extended release 1 tablet = 450 mg, By Mouth, 2 times a day, # 60 tablet, 0 Refills, Maintenance, 10/14/21 10:48:00 EDT, ER Tablet, [facility]/pharmacy #[id number], Partial fill upon patient request if the prescription is for a schedule II opioid drug., 165, cm, 10/14/21 10:29:00... Start Date: 10/14/21 Status: Ordered Problem List Condition Effective Dates Status Health Status Inform ant Abnormal liver function(Confirmed) Active Bipolar disorder(Confirmed) Active Chronic hepatitis C(Confirmed) Active MYNOR (generalized anxiety disorder)(Confirmed) Active Insomnia(Confirmed) Active Obese class I(Confirmed) Active MDD (major depressive disord er), recurrent, severe, with psychosis(Confirmed) Active Unspecified schizophrenia sp ectrum and other psychotic disorder(Confirmed) Active Seasonal affective disorder(Confirmed) Active Severe major depression(Confirmed) Active Diagnosis Diagnosis Type Effective Dates Health Status Clinical Service Informant Bipolar disorder Discharge Diagnosis 10/14/21 Chronic hepatitis C Discharge Diagnosis 10/14/21 Insomnia Discharge Diagnosis 10/14/21 Severe major depression Discharge Diagnosis 10/14/21 Annual physical exam Discharge Diagnosis 10/14/21 Vital Signs Most recent to oldest [Reference Range]: 1 Height 165 cm (10/14/21 10:29 AM) Weight 92.7 kg (10/14/21 10:29 AM) Oxygen Saturation [94-100 %] 94 % (10/14/21 10:29 AM) Pulse Rate [55-90 bpm] 83 bpm (10/14/21 10:29 AM) Body Mass Index [18.5-24.99] 34.05 *>HHI* (10/14/21 10:29 AM) Blood Pressure [90-138/55-84 mm Hg] 90/5 8mm Hg (10/14/21 10:29 AM) Temperature [96.8-100.4 DegF] 99 DegF (10/14/21 10:29 AM) Mode of Delivery (Oxygen) Room air (10/14/21 10:29 AM) Blood pressure sites Arm, right (10/14/21 10:29 AM) Temperature Route Temporal (10/14/21 10:29 AM) Weight Obtained Via Standing scale (10/14/21 10:29 AM) Social History Social History Type Response Tobacco Use: 4 or less cigar ettes(less than 1/4 pack)/day in last 30 days. Other: Reports 1 cig per day. Sex
--- OUTSIDE RECORDS SUMMARY | 2023-01-22 15:49 | XMS_ITS | Continuity of Care Document ---
Author Name Unknown Organization [facility] ter Address [address] [place] [phone]- Care Team Providers Care Electronic Assembler Name Role Phone Davina PERRY, [facility] Primary Care Physician Encounter [facility] [place] Date(s): 04/24/19 - 04/24/[address] [address]- [facility] Discharge Disposition: A-D/C Home Attending Physician: Gerard Jesus MD Admitting Physician: Gerard Jesus MD Referring Physician: Not on Staff, Referring MD Allergies, Adverse Reactions, Alerts Substance Reaction [...] Refills, Acute, 04/07/19 12:28:00 EST, [id number], 166, cm, 03/10/19 14:52:00 EST, Height, 75.6, kg, 12/20/18 12:33:00 EDT, Dry Weight Start Date: 04/07/19 Status: Ordered naloxone 4 mg/0.1 mL nasal spray = 4 mg, Naris, Right, Once, # 2 each, 0 Refills, Soft Stop, 12/21/18 16:30:00 EDT Start Date: 12/21/18 Status: Ordered olanzapine 20 mg oral tablet 1 tablet = 20 mg, By Mouth, Daily, # 90 tablet, 0 Refills, Maintenance, 04/22/19 15:27:00 EST, Tablet, [id number], 166, cm, 03/10/19 14:52:00 EST, Height, 75.6, kg, 12/20/18 12:33:00 EDT, DryWeight Start Date: 04/22/19 Stop Date: 07/21/19 Status: Ordered traZODone 50 mg oral tablet 50 mg, 1, tablet, By Mouth, Daily at bedtime, PRN, Appt required for further refills, # 30 tablet, Refills 5, Tot. Refills 5, Maintenance, Insomnia, 04/01/19 16:19:00 EST, Route to Pharmacy Electronically, [facility]/pharmacy #[id number], 166, cm, 03/10/19 14:52:0... Start Date: 04/01/19 Status: Ordered VITAMIN D3 1,000 UNIT SOFTGEL TAKE ONE CAPSULE BY MOUTH EVERY DAY Start Date: 03/10/19 Status: Ordered Vitamin D3 1000 intl units oral tablet 1 tablet = 1,000 International_Units, By Mouth, Daily, # 30 tablet, 0 Refills, Maintenance, 03/10/19 15:16:00 EST, Tablet, [facility]/pharmacy #[id number], 166, cm, 03/10/19 14:52:00 EST, Height, 75.6, kg, 12/20/18 12:33:00 EDT, Dry Weight Start Date: 03/10/19 Status: Ordered Problem List Condition Effective Dates Status Health Status Inform ant Bipolar disorder(Confirmed) Active Insomnia(Confirmed) Active Seasonal affective disorder(Confirmed) Active Vital Signs Most recent to oldest [Reference Range]: 1 2 3 Oxygen Saturation [94-100 %] 100 % (04/24/19 6:27 AM) 98 % (04/24/19 3:09 AM) 100 % (04/24/19 1:25 AM) Pulse Rate [55-90 bpm] 84 bpm (04/24/19 6:27 AM) 75 bpm (04/24/19 3:09 AM) 68 bpm (04/24/19 1:25 AM) Blood Pressure [90-138/55-84 mm Hg] 118/64mm Hg (04/24/19 6:27 AM) 102/52mm Hg (04/24/19 3:09 AM) 129/60mm Hg (04/24/19 1:25 AM) Respiratory Rate [16-30 br/min] 18 br/min (04/24/19 6:27 AM) 20 br/min (04/24/19 3:09 AM) 20 br/min (04/24/19 1:25 AM) Temperature [96.8-100.4 DegF] 98.1 DegF (04/24/19 3:09 AM) Mode of Delivery (Oxygen) Room air (04/24/19 6:27 AM) Room air (04/24/19 3:09 AM) Room air (04/24/19 1:25 AM) Blood pressure sites Arm, left (04/24/19 3:09 AM) Arm, left (04/24/19 1:25 AM) Temperature Route Oral (04/24/19 3:09 AM) Social History Social History Type Response Smoking Status Former smoker, quit more than 30 days ago; Other: stopped 6 weeks ago; entered on: 03/10/19 Sex
--- OUTSIDE RECORDS SUMMARY | 2023-01-22 15:49 | XMS_ITS | Continuity of Care Document ---
Author Name Unknown Organization [facility] Address [address] [place] [phone]- Care Team Providers Care Body Mechanic Apprentice Name Role Phone Davina PERRY, [facility] Primary Care Physician ( [phone] [facility] [place] Date(s): 09/11/22 - 10/11/22 [facility] [address] [place] [phone]- Allergies, Adverse Reactions, Alerts No Known Allergies [...] 01/30/16 Not Given Patient Refuses 1Result Comment: [id number] Medications haloperidol 10 mg oral tablet 1, tablet, By Mouth, 2 times a day, # 60 tablet, Refills 0, Maintenance, 03/21/22 16:46:00 EST, Route to Pharmacy Electronically, [facility] [id number], 165, cm, 01/24/22 12:54:00 EST, Height, 69.5, kg, 02/18/21 14:03:00 EST, Dry Weight Start Date: 03/21/22 Stop Date: 04/20/22 Status: Ordered traZODone 50 mg oral tablet 50 mg, 1, tablet, By Mouth, Daily at bedtime, # 30 tablet, Refills 2, Tot. Refills 2, Maintenance, 07/15/22 8:27:00 EDT, Route to Pharmacy Electronically, [facility]/pharmacy #[id number], Partial fill upon patient request if the prescription is for a schedule II o... Start Date: 07/15/22 Status: Ordered Problem List Condition Confirmation Course Effective Dates Status H ealth Status Informant Abnormal liver function Confirmed Active Bipolar disorder Confirmed Active Chronic hepatitis C Confirmed Active MYNOR (generalized anxiety disorder) Confirmed Active Insomnia Confirmed Active Obese class I Confirmed Active MDD (major depressive disorder), recurrent, severe, with psychosis Confirmed Active Unspecified schizophrenia spectrum and other psychotic disorder Confirmed Active Seasonal affective disorder Confirmed Active Severe major depression Confirmed Active Social History Social History Type Response Tobacco Use: 4 or less cigar ettes(less than 1/4 pack)/day in last 30 days. Other: Reports 1 cig per day. Sex Patient Care team information Care Team Personnel Name: Laina Castillo RN Position: S RN Member Role: Primary Care Nurse Name: Chanel Sewell Position: S RN Member Role: Primary Care Nurse Name: Betzaida Ghosh MD Position: S Physician - Primary Care Member Role: PCP Address: Address: [address] [place] [address]- Name: Ferdinand Parisi RN Position: S RN Member Role: Primary Care Nurse Name: Desmond Almeida RN Position: [facility] RN Member Role: Primary Care Nurse Name: Sarika Aguilera RN Position: S RN Member Role: Primary Care Nurse Care Team Related Persons Name: DECLINED, DECLINED Name: LARISSA LORENZO Name: ANDREY REED Address: [address] [address]
--- OUTSIDE RECORDS SUMMARY | 2023-01-22 15:49 | XMS_ITS | Continuity of Care Document ---
Author Name Unknown Organization [facility] Adult Address [address] [place] [address]- Care Team Providers Care Corporate Securities Research Analyst Name Role Phone Davina PERRY, [facility] Primary Care Physician Encounter [facility] [place] Date(s): 07/17/22 - 08/16/22 [facility] Adult [address] [place] [address]- Allergies, Adverse Reactions, Alerts No Known Allergies [...] 01/30/16 Not Given Patient Refuses 1Result Comment: [id number] Medications haloperidol 10 mg oral tablet 1, tablet, By Mouth, 2 times a day, # 60 tablet, Refills 0, Maintenance, 03/21/22 16:46:00 EST, Route to Pharmacy Electronically, [facility] [id number], 165, cm, 01/24/22 12:54:00 EST, Height, 69.5, kg, 02/18/21 14:03:00 EST, Dry Weight Start Date: 03/21/22 Stop Date: 04/20/22 Status: Ordered Mavyret 100 mg-40 mg oral tablet 3 tablet, By Mouth, Daily, for 28 days, # 84 tablet, 1 Refills, Acute 09/04/22 16:48:00 EDT, 07/10/22 16:48:00 EDT, [facility], Partial fill upon patient request if the prescription is for a schedule II opioid drug., 3 tablet By Mouth... Start Date: 07/10/22 Stop Date: 09/04/22 Status: Ordered traZODone 50 mg oral tablet 50 mg, 1, tablet, By Mouth, Daily at bedtime, # 30 tablet, Refills 2, Tot. Refills 2, Maintenance, 07/15/22 8:27:00 EDT, Route to Pharmacy Electronically, [facility]/pharmacy #[id number], Partial fill upon patient request if the [...] Team Personnel Name: Laina Castillo RN Position: [facility] RN Member Role: Primary Care Nurse Name: Chanel Sewell Position: S RN Member Role: Primary Care Nurse Name: Betzaida Ghosh MD Position: [facility] Physician - Primary Care Member Role: PCP Address: Address: [address] [place] [address] [address] [place] [address]- Name: Ferdinand Parisi RN Position: S RN Member Role: Primary Care Nurse Name: Desmond Almeida RN Position: [facility] RN Member Role: Primary Care Nurse Name: Sarika Aguilera RN Position: S RN Member Role: Primary Care Nurse Care Team Related Persons Name: DECLINED, DECLINED Name: LARISSA LORENZO Name: ANDREY REED Address: [address] [address]
--- OUTSIDE RECORDS SUMMARY | 2023-01-22 15:49 | XMS_ITS | Continuity of Care Document ---
Author Name Unknown Organization [facility] Adult Address [address] [place] [address]- Care Team Providers Care Online Facilitator Name Role Phone Davina PERRY, [facility] Primary Care Physician [place] [facility] [place]/03[place]20 - 05/03/20 [facility] Adult [address] [place] [address]- Allergies, Adverse Reactions, Alerts Substance Reaction Severity Status NKA Active Immunizations Given and Recorded Vaccine Date Status Refusal Reason influenza virus vaccine, inactivated 12/07/19 Give n pneumococcal 23-valent vaccine 12/21/18 Given Not Given Vaccine Date Status Refusal Reason pneumococcal 23-valent vaccine 01/30/16 Not Given Patient Refuses Medications divalproex sodium 500 mg oral enteric coated tablet = 500 mg, By Mouth, 2 times a day, # 60 tablet, 0 Refills, Maintenance, 12/21/19 9:30:00 EDT, Tablet, [facility]/pharmacy #[id number], 165, cm, 12/21/19 8:58:00 EDT, Height, 75, kg, 12/13/19 14:35:00 EDT, Dry Weight Start Date: 12/21/19 Status: Ordered olanzapine 10 mg oral tablet 30 mg, 3, tablet, By Mouth, Daily at bedtime, # 90 tablet, Refills 0, Tot. Refills 0, Maintenance, 12/21/19 9:30:00 EDT, Route to Pharmacy Electronically, [facility]/pharmacy #[id number], 165, cm, 12/21/19 8:58:00 EDT, Height, 75, kg, 12/13/19 14:35:00 EDT, Dry We... Start Date: 12/21/19 Status: Ordered Problem List Condition Effective Dates Status Health Status Inform ant Abnormal liver function(Confirmed) Active Bipolar disorder(Confirmed) Active Insomnia(Confirmed) Active Seasonal affective disorder(Confirmed) Active Social History Social History Type Response Smoking Status 10 or more cigarette s (1/2 pack or more)/day in last 30 days; Other: pack a day; entered on: 12/12/19 Sex
--- OUTSIDE RECORDS SUMMARY | 2023-01-22 15:49 | XMS_ITS | Continuity of Care Document ---
Author Name Unknown Organization [facility] Adult Address [address] [place] [address]- Care Team Providers Care Calciner Operator Name Role Phone Davina PERRY, Betzaida Primary [id number]18[facility] - 11/24/20 [facility] Adult [address] [place] [address]- Attending Physician: Betzaida Ghosh MD Allergies, Adverse Reactions, Alerts Substance Reaction Severity Status NKA Active Immunizations Given and Recorded Vaccine Date Status Refusal Reason influenza virus vaccine, inactivated 12/07/19 Give n pneumococcal 23-valent vaccine 12/21/18 Given Not Given Vaccine Date Status Refusal Reason pneumococcal 23-valent vaccine 01/30/16 Not Given Patient Refuses Medications divalproex sodium 500 mg oral enteric coated tablet 2 tablet = 1,000 mg, By Mouth, 2 times a day, # 120 tablet, 0 Refills, Maintenance, 10/17/20 14:27:00 EDT, Tablet, [id number], Partial fill upon patient request if the prescription is for a schedule II opioid drug., 166, cm, 10/17/20 9:38:00 E... Start Date: 10/17/20 Status: Ordered nicotine 2 mg oral transmucosal gum See Instructions, PRN Other, Chew Every hour as needed for nicotine cravings, # 160 each, 0 Refills, Maintenance, 10/17/20 14:29:00 EDT, Gum, [id number], Partial fill upon patient request if the prescription is for a schedule II opioid drug.,... Start Date: 10/17/20 Status: Ordered ZyPREXA Zydis 10 mg oral tablet, disintegrating 10 mg, 1, tablet, By Mouth, Daily in AM, # 30 tablet, Refills 0, Tot. Refills 0, Maintenance, 10/17/20 14:27:00 EDT, Route to Pharmacy Electronically, [facility]/pharmacy #[id number], Partial fill upon patient request if the prescription is for a schedule II opioi... Start Date: 10/17/20 Status: Ordered ZyPREXA Zydis 20 mg oral tablet, disintegrating 1 tablet = 20 mg, By Mouth, Daily, # 30 tablet, 0 Refills, Maintenance, 10/17/20 14:28:00 EDT, DIS Tablet, [facility]/pharmacy #[id number], Partial fill upon patient request if the prescription is for a schedule II opioid drug., 166, cm, 10/17/20 9:38:00 EDT, Heig... Start Date: 10/17/20 Status: Ordered Problem List Condition Effective Dates Status Health Status Inform ant Abnormal liver function(Confirmed) Active Bipolar disorder(Confirmed) Active Insomnia(Confirmed) Active Seasonal affective disorder(Confirmed) Active Social History Social History Type Response Smoking Status 10 or more cigarette s (1/2 pack or more)/day in last 30 days; Other: pack a day; entered on: 12/12/19 Sex
--- OUTSIDE RECORDS SUMMARY | 2023-01-22 15:49 | XMS_ITS | Continuity of Care Document ---
Author Name Unknown Organization [facility] Address [address] [place] [address]- Care Team Providers Care Direct Care Professional Name Role Phone Davina PERRY, [facility] Primary Care Physician [place] [facility] [place](s): 06/17/22 - 07/17/22 [facility] [address] [place] [address]- Allergies, Adverse Reactions, Alerts No Known Allergies [...] 01/30/16 Not Given Patient Refuses 1Result Comment: [id number] Medications haloperidol 10 mg oral tablet 1, tablet, By Mouth, 2 times a day, # 60 tablet, Refills 0, Maintenance, 03/21/22 16:46:00 EST, Route to Pharmacy Electronically, [facility] [id number], 165, cm, 01/24/22 12:54:00 EST, Height, 69.5, kg, 02/18/21 14:03:00 EST, Dry Weight Start Date: 03/21/22 Stop Date: 04/20/22 Status: Ordered Mavyret 100 mg-40 mg oral tablet 3 tablet, By Mouth, Daily, for 28 days, # 84 tablet, 1 Refills, Acute 09/04/22 16:48:00 EDT, 07/10/22 16:48:00 EDT, [facility], Partial fill upon patient request if the prescription is for a schedule II opioid drug., 3 tablet By Mouth... Start Date: 07/10/22 Stop Date: 09/04/22 Status: Ordered traZODone 50 mg oral tablet 50 mg, 1, tablet, By Mouth, Daily at bedtime, # 30 tablet, Refills 2, Tot. Refills 2, Maintenance, 07/15/22 8:27:00 EDT, Route to Pharmacy Electronically, [facility]/pharmacy #[id number], Partial fill upon patient request if the [...] Team Personnel Name: Laina Castillo RN Position: [facility] RN Member Role: Primary Care Nurse Name: Chanel Sewell Position: [facility] RN Member Role: Primary Care Nurse Name: Betzaida Ghosh MD Position: [facility] Primary Care Physician Member Role: PCP Address: Address: [address] [place] [id number] Name: Ferdinand Parisi RN Position: S RN Member Role: Primary Care Nurse Name: Desmond Almeida RN Position: [facility] RN Member Role: Primary Care Nurse Name: Sarika Aguilera RN Position: S RN Member Role: Primary Care Nurse Care Team Related Persons Name: DECLINED, DECLINED Name: LARISSA LORENZO Name: ANDREY REED Address: [address] [address]
--- OUTSIDE RECORDS SUMMARY | 2023-01-22 15:49 | XMS_ITS | Continuity of Care Document ---
Author Name Unknown Organization [facility] Address [address] [place] [address]- Care Team Providers Care Director Print Name Role Phone Davina PERRY, [facility] Primary Care Physician ( [phone] [place] [facility] [place] 09/10/22 - 10/10/22 [facility] [address] [place] [address]- [place] Allergies, Adverse Reactions, Alerts No Known Allergies [...] 01/30/16 Not Given Patient Refuses 1Result Comment: [id number] Medications haloperidol 10 mg oral tablet 1, tablet, By Mouth, 2 times a day, # 60 tablet, Refills 0, Maintenance, 03/21/22 16:46:00 EST, Route to Pharmacy Electronically, [facility] [id number], 165, cm, 01/24/22 12:54:00 EST, Height, 69.5, kg, 02/18/21 14:03:00 EST, Dry Weight Start Date: 03/21/22 Stop Date: 04/20/22 Status: Ordered traZODone 50 mg oral tablet 50 mg, 1, tablet, By Mouth, Daily at bedtime, # 30 tablet, Refills 2, Tot. Refills 2, Maintenance, 07/15/22 8:27:00 EDT, Route to Pharmacy Electronically, [facility]/pharmacy #[id number], Partial fill upon patient request if the [...] Primary Care Member Role: PCP Address: Address: [address] [place] [address]- Name: Ferdinand Parisi RN Position: S RN Member Role: Primary Care Nurse Name: Desmond Almeida RN Position: [facility] RN Member Role: Primary Care Nurse Name: Sarika Aguilera RN Position: S RN Member Role: Primary Care Nurse Care Team Related Persons Name: DECLINED, DECLINED Name: LARISSA LORENZO Name: ANDREY REED Address: [address] [address]
--- OUTSIDE RECORDS SUMMARY | 2023-01-22 15:49 | XMS_ITS | Continuity of Care Document ---
Author Name Unknown Organization [facility] Address [address] [place] [phone]- Care Team Providers Care Medical Billing Clerk Name Role Phone Davina PERRY, [facility] Primary Care Physician [place] [facility] [place](s): 01/24/22 - 02/23/22 [facility] [address] [place] [address]- Allergies, Adverse Reactions, Alerts No Known Allergies Immunizations Given and Recorded Vaccine Date Status Refusal Reason tetanus/diphtheria/pertussis, acel(Tdap) 1 04/22/21 Given influenza virus vaccine, inactivated 04/02/21 Damno rded influenza virus vaccine, inactivated 12/07/19 Give n SARS-CoV-2 (COVID-19) mRNA-1273 vaccine 04/02/21 R ecorded pneumococcal 23-valent vaccine 12/21/18 Given Not Given Vaccine Date Status Refusal Reason pneumococcal 23-valent vaccine 01/30/16 Not Given Patient Refuses 1Result Comment: [id number] Medications haloperidol 10 mg oral tablet 1, tablet, By Mouth, 2 times a day, # 60 tablet, Refills 0, Maintenance, 02/21/22 14:45:00 EST, Route to Pharmacy Electronically, [facility] [id number], 165, cm, 01/24/22 12:54:00 EST, Height, 69.5, kg, 02/18/21 14:03:00 EST, Dry Weight Start Date: 02/21/22 Stop Date: 03/23/22 Status: Ordered traZODone 50 mg oral tablet 50 mg, 1, tablet, By Mouth, Daily at bedtime, # 30 tablet, Refills 2, Tot. Refills 2, Maintenance, 01/24/22 12:18:00 EST, Route to Pharmacy Electronically, [facility]/pharmacy #[id number], Partial fill upon patient request if the prescription is for a schedule II... Start Date: 01/24/22 Status: Ordered Problem List Condition Confirmation Course [...] Care Nurse Name: Betzaida Ghosh MD Position: [facility] Primary Care Physician Member Role: PCP Address: Address: [address] [place] [address] Name: Ferdinand Parisi RN Position: S RN Member Role: Primary Care Nurse Name: Desmond Almeida RN Position: [facility] SN RN Member Role: Primary Care Nurse Name: Patience Hanna RN Position: S RN Member Role: Primary Care Nurse Name: Ashleigh Hoff RN Position: S RN Member Role: Primary Care Nurse Name: Sarika Aguilera RN Position: S RN Member Role: Primary Care Nurse Care Team Related Persons Name: EYAL, DECLINED Name: SHE LORENZO Address: home [address] [place] [address] Name: ANDREY REED Address: home [address] [place] [id number]
--- OUTSIDE RECORDS SUMMARY | 2023-01-22 15:49 | XMS_ITS | Continuity of Care Document ---
Author Name Unknown Organization [facility] Adult Address [address] [place] [address]- Care Team Providers Care Imaging Technologist Name Role Phone Davina PERRY, [facility] Primary Care Physician ( [phone] Encounter [facility] Date(s): 07/15/22 - 08/14/22 [facility] Adult [address] [place] [address]- Allergies, Adverse Reactions, Alerts No Known Allergies [...] 01/30/16 Not Given Patient Refuses 1Result Comment: [id number] Medications haloperidol 10 mg oral tablet 1, tablet, By Mouth, 2 times a day, # 60 tablet, Refills 0, Maintenance, 03/21/22 16:46:00 EST, Route to Pharmacy Electronically, [id number], 165, cm, 01/24/22 12:54:00 EST, Height, 69.5, kg, 02/18/21 14:03:00 EST, Dry Weight Start Date: 03/21/22 Stop Date: 04/20/22 Status: Ordered Mavyret 100 mg-40 mg oral tablet 3 tablet, By Mouth, Daily, for 28 days, # 84 tablet, 1 Refills, Acute 09/04/22 16:48:00 EDT, 07/10/22 16:48:00 EDT, [facility], Partial fill upon patient request if the prescription is for a schedule II opioid drug., 3 tablet By Mouth... Start Date: 07/10/22 Stop Date: 09/04/22 Status: Ordered traZODone 50 mg oral tablet 50 mg, 1, tablet, By Mouth, Daily at bedtime, # 30 tablet, Refills 2, Tot. Refills 2, Maintenance, 07/15/22 8:27:00 EDT, Route to Pharmacy Electronically, [facility]/pharmacy #[id number], Partial fill upon patient [...] Team Personnel Name: Laina Castillo RN Position: [facility] RN Member Role: Primary Care Nurse Name: Chanel Sewell Position: S RN Member Role: Primary Care Nurse Name: Betzaida Ghosh MD Position: [facility] Physician - Primary Care Member Role: PCP Address: Address: [address] [place] [address] [address] [place] [address]- Name: Ferdinand Parisi RN Position: S RN Member Role: Primary Care Nurse Name: Desmond Almeida RN Position: [facility] RN Member Role: Primary Care Nurse Name: Sarika Aguilera RN Position: S RN Member Role: Primary Care Nurse Care Team Related Persons Name: DECLINED, DECLINED Name: LARISSA LORENZO Name: ANDREY REED Address: [address] [address]
--- OUTSIDE RECORDS SUMMARY | 2023-01-22 15:49 | XMS_ITS | Continuity of Care Document ---
Author Name Unknown Organization [facility] Adult Address [address] [place] [address]- Care Team Providers Care Automotive Consultant Name Role Phone Davina PERRY, [facility] Primary Care Physician Encounter [facility] Date(s): 03/23/19 - 03/30/19 [facility] Adult [address] [place] [address]- [facility] Attending Physician: Davina PERRY, [facility] Allergies, Adverse Reactions, Alerts Substance Reaction Severity Status NKA Active Immunizations Given and Recorded Vaccine Date Status Refusal Reason pneumococcal 23-valent vaccine 12/21/18 Given Not Given Vaccine Date Status Refusal Reason pneumococcal 23-valent vaccine 01/30/16 Not Given Patient Refuses Medications hydrOXYzine hydrochloride 50 mg oral tablet 1 tablet = 50 mg, By Mouth, 2 times a day, PRN for anxiety, for 30 days, # 60 tablet, 0 Refills, Acute 04/13/19 16:55:00 EST, 03/14/19 16:55:00 EST, Tablet, [id number], 166, cm, 03/10/19 14:52:00 EST, Height, 75.6, kg, 12/20/18 12:33:00 EDTShira. Start Date: 03/14/19 Stop Date: 04/13/19 Status: Ordered naloxone 4 mg/0.1 mL nasal spray = 4 mg, Naris, Right, Once, # 2 each, 0 Refills, Soft Stop, 12/21/18 16:30:00 EDT Start Date: 12/21/18 Status: Ordered olanzapine 20 mg oral tablet 1 tablet = 20 mg, By Mouth, Daily, # 30 tablet, 0 Refills, Maintenance, 03/10/19 15:15:00 EST, Tablet, [id number], 166, cm, 03/10/19 14:52:00 EST, Height, 75.6, kg, 12/20/18 12:33:00 EDT, DryWeight Start Date: 03/10/19 Status: Ordered traZODone 50 mg oral tablet 50 mg, 1, tablet, By Mouth, Daily at bedtime, PRN, # 30 tablet, Refills 0, Tot. Refills 0, Maintenance, Insomnia, 03/10/19 15:15:00 EST, Route to Pharmacy Electronically, [facility]/pharmacy #[id number], 166, cm,03/10/19 14:52:00 EST, Height, 75.6, kg, 12/20/18 1... Start Date: 03/10/19 Status: Ordered VITAMIN D3 1,000 UNIT SOFTGEL TAKE ONE CAPSULE BY MOUTH EVERY DAY Start Date: 03/10/19 Status: Ordered Vitamin D3 1000 intl units oral tablet 1 tablet = 1,000 International_Units, By Mouth, Daily, # 30 tablet, 0 Refills, Maintenance, 03/10/19 15:16:00 EST, Tablet, [facility]/pharmacy #[id number], 166, cm, 03/10/19 14:52:00 EST, [...]
--- OUTSIDE RECORDS SUMMARY | 2023-01-22 15:50 | XMS_ITS | Continuity of Care Document ---
Author Name Unknown Organization [facility] Adult Address [address] [place] [address]- Care Team Providers Care Marine Rigger Name Role Phone Davina PERRY, [facility] Primary Care Physician Encounter [facility] Date(s): 07/23/22 - 09/03/22 [facility] Adult [address] [place] [address]- Attending Physician: Davina PERRY, [facility] Allergies, Adverse Reactions, Alerts No Known [...] 01/30/16 Not Given Patient Refuses 1Result Comment: [id number] Medications haloperidol 10 mg oral tablet 1, tablet, By Mouth, 2 times a day, # 60 tablet, Refills 0, Maintenance, 03/21/22 16:46:00 EST, Route to Pharmacy Electronically, [id number], 165, cm, 01/24/22 12:54:00 EST, Height, 69.5, kg, 02/18/21 14:03:00 EST, Dry Weight Start Date: 03/21/22 Stop Date: 04/20/22 Status: Ordered Mavyret 100 mg-40 mg oral tablet 3 tablet, By Mouth, Daily, for 28 days, # 84 tablet, 1 Refills, Acute 09/04/22 16:48:00 EDT, 07/10/22 16:48:00 EDT, [facility], Partial fill upon patient request if the prescription is for a schedule II opioid drug., 3 tablet By Mouth... Start Date: 07/10/22 Stop Date: 09/04/22 Status: Ordered traZODone 50 mg oral tablet 50 mg, 1, tablet, By Mouth, Daily at bedtime, # 30 tablet, Refills 2, Tot. Refills 2, Maintenance, 07/15/22 8:27:00 EDT, Route to Pharmacy Electronically, [facility]/pharmacy #[id number], Partial fill upon patient request if [...] Primary Care Member Role: PCP Address: Address: [address] [place] [id number] Name: Ferdinand Parisi RN Position: S RN Member Role: Primary Care Nurse Name: Desmond Almeida RN Position: S RN Member Role: Primary Care Nurse Name: Sarika Aguilera RN Position: S RN Member Role: Primary Care Nurse Care Team Related Persons Name: DECLINED, DECLINED Name: LARISSA LORENZO Name: ANDREY REED Address: [address] [address]
--- OUTSIDE RECORDS SUMMARY | 2023-01-22 15:50 | XMS_ITS | Continuity of Care Document ---
Author Name Unknown Organization [facility] Adult Address [address] [place] [address]- Care Team Providers Care Upsetter Helper Name Role Phone Davina PERRY, [id number] - 12/01/20 [facility] Adult [address] [place] [address]- Attending Physician: Betzaida Ghosh MD Allergies, Adverse [...] 10/17/20 14:27:00 EDT, Route to Pharmacy Electronically, [facility]/pharmacy #[id number], Partial fill upon patient request if the prescription is for a schedule II opioi... Start Date: 10/17/20 Status: Ordered ZyPREXA Zydis 20 mg oral tablet, disintegrating 1 tablet = 20 mg, By Mouth, Daily, # 30 tablet, 0 Refills, Maintenance, 10/17/20 14:28:00 EDT, DIS Tablet, [facility]/pharmacy #[id number], Partial fill upon patient request if [...]
--- OUTSIDE RECORDS SUMMARY | 2023-01-22 15:50 | XMS_ITS | Continuity of Care Document ---
Author Name Unknown Organization [facility] Address [address] [place] [address]- Care Team Providers Care Food Storeroom Clerk Name Role Phone Davina PERRY, [facility] Primary Care Physician ( [phone] Encounter [facility] Date(s): 06/16/22 - 07/16/22 [facility] [address] [place] [address]- Allergies, Adverse Reactions, Alerts No Known Allergies [...] 01/30/16 Not Given Patient Refuses 1Result Comment: [id number] Medications haloperidol 10 mg oral tablet 1, tablet, By Mouth, 2 times a day, # 60 tablet, Refills 0, Maintenance, 03/21/22 16:46:00 EST, Route to Pharmacy Electronically, [id number], 165, cm, 01/24/22 12:54:00 EST, Height, 69.5, kg, 02/18/21 14:03:00 EST, Dry Weight Start Date: 03/21/22 Stop Date: 04/20/22 Status: Ordered Mavyret 100 mg-40 mg oral tablet 3 tablet, By Mouth, Daily, for 28 days, # 84 tablet, 1 Refills, Acute 09/04/22 16:48:00 EDT, 07/10/22 16:48:00 EDT, [facility], Partial fill upon patient request if the prescription is for a schedule II opioid drug., 3 tablet By Mouth... Start Date: 07/10/22 Stop Date: 09/04/22 Status: Ordered traZODone 50 mg oral tablet 50 mg, 1, tablet, By Mouth, Daily at bedtime, # 30 tablet, Refills 2, Tot. Refills 2, Maintenance, 07/15/22 8:27:00 EDT, Route to Pharmacy Electronically, [facility]/pharmacy #[id number], Partial fill upon patient request if the [...] Team Personnel Name: Laina Castillo RN Position: [facility] RN Member Role: Primary Care Nurse Name: Chanel Sewell Position: [facility] RN Member Role: Primary Care Nurse Name: Betzaida Ghohs MD Position: [facility] Primary Care Physician Member Role: PCP Address: Address: [address] [place] [id number] Name: Ferdinand Parisi RN Position: S RN Member Role: Primary Care Nurse Name: Desmond Almeida RN Position: [facility] RN Member Role: Primary Care Nurse Name: Sarika Aguilera RN Position: S RN Member Role: Primary Care Nurse Care Team Related Persons Name: DECLINED, DECLINED Name: LARISSA LORENZO Name: ANDREY REED Address: [address] [address]
--- OUTSIDE RECORDS SUMMARY | 2023-01-22 15:50 | XMS_ITS | Continuity of Care Document ---
Author Name Unknown Organization [facility] Adult Address [address] [place] [address]- Care Team Providers Care Diversity Specialist Name Role Phone Davina PERRY, [facility] Primary [facility] Physician [place] [facility] [place] 12/20/21 - 12/27/21 [facility] Adult [address] [place] [address]- Encounter Diagnosis Bipolar disorder(Discharge Diagnosis) - 12/20/21 Chronic hepatitis C(Discharge Diagnosis) - 12/20/21 MDD (major depressive disorder), recurrent, severe, with psychosis(Discharge Diagnosis) - 12/20/21 Attending Physician: Davina PERRY, [facility] Allergies, Adverse Reactions, Alerts No Known Allergies [...] 01/30/16 Not Given Patient Refuses 1Result Comment: [id number] Medications haloperidol 10 mg oral tablet 10 mg, 1, tablet, By Mouth, 2 times a day, # 60 tablet, Refills 0, Tot. Refills 0, Maintenance, 12/20/21 10:05:00 EDT, Route to Pharmacy Electronically, [facility]/pharmacy #[id number], Partial fill upon patient request if the prescription is for a schedule II opi... Start Date: 12/20/21 Stop Date: 01/19/22 Status: Ordered Problem List Condition Confirmation Course [...] Confirmed Active Severe major depression Confirmed Active Diagnosis Diagnosis Type Effective Dates Health Status Clinical Service Informant Bipolar disorder Discharge Diagnosis 12/20/21 Chronic hepatitis C Discharge Diagnosis 12/20/21 MDD (major depressive disorder), recurrent, severe, with psychosis Discharge Diagnosis 12/20/21 Vital Signs Most recent to oldest [Reference Range]: 1 Height 165 cm (12/20/21 9:47 AM) Weight 84 kg (12/20/21 9:47 AM) Oxygen Saturation [94-100 %] 98 % (12/20/21 9:47 AM) Pulse Rate [55-90 bpm] 62 bpm (12/20/21 9:47 AM) Body Mass Index [18.5-24.99 kg/m2] 30.85 kg/m2 *>HHI* (12/20/21 9:47 AM) Blood Pressure [90-138/55-84 mm Hg] 125/ 77mm Hg (12/20/21 9:47 AM) Temperature [96.8-100.4 DegF] 98.8 DegF (12/20/21 9:47 AM) Mode of Delivery (Oxygen) Room air (12/20/21 9:47 AM) Blood pressure sites Arm, left (12/20/21 9:47 AM) Temperature Route Temporal (12/20/21 9:47 AM) Weight Obtained Via Standing scale (12/20/21 9:47 AM) Social History Social History Type Response Tobacco Use: 4 or less cigar ettes(less than 1/4 pack)/day in last 30 days. Other: Reports 1 cig per day. Sex Patient Care team information Personnel Name: Davina PERRY [facility] Address: Address: [address] [place] [address] [address] [place], [place] [address]
--- OUTSIDE RECORDS SUMMARY | 2023-01-22 15:50 | XMS_ITS | Continuity of Care Document ---
Author Name Unknown Organization [facility] Adult Address [address] [place] [address]- Care Team Providers Care Advertising Project Manager Name Role Phone Davina PERRY, [facility] Primary Care Physician Encounter [facility] Date(s): 07/22/22 - 08/21/22 [facility] Adult [address] [place] [address]- Allergies, Adverse Reactions, Alerts No Known Allergies [...] 01/30/16 Not Given Patient Refuses 1Result Comment: [id number] Medications haloperidol 10 mg oral tablet 1, tablet, By Mouth, 2 times a day, # 60 tablet, Refills 0, Maintenance, 03/21/22 16:46:00 EST, Route to Pharmacy Electronically, [facility], 165, cm, 01/24/22 12:54:00 EST, Height, 69.5, kg, 02/18/21 14:03:00 EST, Dry Weight Start Date: 03/21/22 Stop Date: 04/20/22 Status: Ordered Mavyret 100 mg-40 mg oral tablet 3 tablet, By Mouth, Daily, for 28 days, # 84 tablet, 1 Refills, Acute 09/04/22 16:48:00 EDT, 07/10/22 16:48:00 EDT, [facility], Partial fill upon patient request if the prescription is for a schedule II opioid drug., 3 tablet By Mouth... Start Date: 07/10/22 Stop Date: 09/04/22 Status: Ordered traZODone 50 mg oral tablet 50 mg, 1, tablet, By Mouth, Daily at bedtime, # 30 tablet, Refills 2, Tot. Refills 2, Maintenance, 07/15/22 8:27:00 EDT, Route to Pharmacy Electronically, [facility]/pharmacy #[id number], Partial fill upon patient request [...] Team Personnel Name: Laina Castillo RN Position: [facility] RN Member Role: Primary Care Nurse Name: Chanel Sewell Position: S RN Member Role: Primary Care Nurse Name: Betzaida Ghosh MD Position: [facility] Physician - Primary Care Member Role: PCP Address: Address: [address] [place] [address] [address] [place] [address]- Name: Ferdinand Parisi RN Position: S RN Member Role: Primary Care Nurse Name: Desmond Almeida RN Position: [facility] RN Member Role: Primary Care Nurse Name: Sarika Aguilera RN Position: S RN Member Role: Primary Care Nurse Care Team Related Persons Name: DECLINED, DECLINED Name: LARISSA LORENZO Name: ANDREY REED Address: [address] [address]
--- OUTSIDE RECORDS SUMMARY | 2023-01-22 15:50 | XMS_ITS | Continuity of Care Document ---
Author Name Unknown Organization [facility] Adult Address [address] [place] [address]- Care Team Providers Care Combustion Engineer Name Role Phone Davina PERRY, [facility] Primary Care Physician Encounter [facility] [place] Date(s): 12/11/21 - 01/10/22 [facility] Adult [address] [place] [id number] Allergies, Adverse Reactions, Alerts No Known Allergies [...] 01/30/16 Not Given Patient Refuses 1Result Comment: [id number] Medications haloperidol 10 mg oral tablet 10 mg, 1, tablet, By Mouth, 2 times a day, # 60 tablet, Refills 0, Tot. Refills 0, Maintenance, 12/20/21 10:05:00 EDT, Route to Pharmacy Electronically, [facility]/pharmacy #[id number], Partial fill upon patient request if the [...] Patient Care team information Personnel Name: Davina PERRY, [facility] Address: Address: [address] [place] [id number]
--- OUTSIDE RECORDS SUMMARY | 2023-01-22 15:50 | XMS_ITS | Continuity of Care Document ---
Author Name Unknown Organization [facility] Address [address] [place] [address]- Care Team Providers Care Manager Of Global Name Role Phone Davina PERRY, [facility] Primary [facility] Physician [id number] - 08[facility]10/[facility] [address] [place] [address]- Allergies, Adverse Reactions, Alerts No Known Allergies [...] 01/30/16 Not Given Patient Refuses 1Result Comment: [id number] Medications haloperidol 10 mg oral tablet 1, tablet, By Mouth, 2 times a day, # 60 tablet, Refills 0, Maintenance, 03/21/22 16:46:00 EST, Route to Pharmacy Electronically, [facility], 165, cm, 01/24/22 12:54:00 EST, Height, 69.5, kg, 02/18/21 14:03:00 EST, Dry Weight Start Date: 03/21/22 Stop Date: 04/20/22 Status: Ordered Mavyret 100 mg-40 mg oral tablet 3 tablet, By Mouth, Daily, for 28 days, # 84 tablet, 1 Refills, Acute 09/04/22 16:48:00 EDT, 07/10/22 16:48:00 EDT, [facility], Partial fill upon patient request if the prescription is for a schedule II opioid drug., 3 tablet By Mouth... Start Date: 07/10/22 Stop Date: 09/04/22 Status: Ordered traZODone 50 mg oral tablet 50 mg, 1, tablet, By Mouth, Daily at bedtime, # 30 tablet, Refills 2, Tot. Refills 2, Maintenance, 07/15/22 8:27:00 EDT, Route to Pharmacy Electronically, [facility]/pharmacy #[id number], Partial fill upon patient request if [...] Primary Care Member Role: PCP Address: Address: [address] [place] [id number]- Name: Ferdinand Parisi RN Position: S RN Member Role: Primary Care Nurse Name: Desmond Almeida RN Position: [facility] RN Member Role: Primary Care Nurse Name: Sarika Aguilera RN Position: S RN Member Role: Primary Care Nurse Care Team Related Persons Name: DECLINED, DECLINED Name: LARISSA LORENZO Name: ANDREY REED Address: [address] [address]
--- OUTSIDE RECORDS SUMMARY | 2023-01-22 15:50 | XMS_ITS | Continuity of Care Document ---
Author Name Unknown Organization [facility] Address [address] [place] [address]- Care Team Providers Care Gun Profiler Name Role Phone Davina PERRY, [facility] Primary Care Physician Encounter [facility] Date(s): 11/30/19 - 12/06/[address] [address]- [facility] Encounter Diagnosis Emilie(Final) - 12/02/19 Discharge Disposition: Transfer to [facility] Facility Attending Physician: Jose Alejandre MD Admitting Physician: Jose Alejandre MD Referring Physician: Not on Staff, Referring MD Allergies, Adverse Reactions, Alerts Substance Reaction Severity Status NKA Active Immunizations Given and Recorded Vaccine Date Status Refusal Reason pneumococcal 23-valent vaccine 12/21/18 Given Not Given Vaccine Date Status Refusal Reason pneumococcal 23-valent vaccine 01/30/16 Not Given Patient Refuses Medications olanzapine 20 mg oral tablet 1 tablet = 20 mg, By Mouth, Daily, # 30 tablet, 0 Refills, Maintenance, 09/12/19 15:44:00 EDT, Tablet, [facility]/pharmacy #[id number], 166, cm, 09/12/19 15:24:00 EDT, Height, 75.6, kg, 12/20/18 12:33:00 EDT, DryWeight Start Date: 09/12/19 Status: Ordered traZODone 50 mg oral tablet 50 mg, 1, tablet, By Mouth, Daily at bedtime, PRN, Appt required for further refills, # 30 tablet, Refills 5, Tot. Refills 5, Maintenance, Insomnia, 04/01/19 16:19:00 EST, Route to Pharmacy Electronically, [facility]/pharmacy #[id number], 166, cm, 03/10/19 14:52:0... Start Date: 04/01/19 Status: Ordered Vitamin D3 1000 intl units oral tablet 1 tablet = 1,000 International_Units, By Mouth, Daily, # 30 tablet, 0 Refills, Maintenance, 03/10/19 15:16:00 EST, Tablet, [facility], 166, cm, 03/10/19 14:52:00 EST, Height, 75.6, kg, 12/20/18 12:33:00 EDT, Dry Weight Start Date: 03/10/19 Status: Ordered Problem List Condition Effective Dates Status Health Status Inform ant Bipolar disorder(Confirmed) Active Insomnia(Confirmed) Active Seasonal affective disorder(Confirmed) Active Results Radiology Reports * Exam Date Time Procedure Performing Provider Status 11/30/19 1:34 PM Wrist Comp Min 3 Views Right Gibsonanne BretRylie; Auth (Verified) Notes: (Wrist Comp Min 3 Views Right) Reason For Exam: with Pain;Trauma RESULT: Wrist Comp Min 3 Views Right Wrist Comp Min 3 Views Right Hx of Present Illness: per Ems, he walked into a laundromat and stated if he did not get help, he would tia the place. admits to marijuana; Reason: Trauma; Clinical Question(s): Fracture COMPARISON: 08/11/2018. FINDINGS: No fracture or dislocation. Unchanged postsurgical changes involving the scaphoid, lunate, and triquetrum. Unchanged corticatedossicle distal to the ulna and adjacent to the first metacarpal phalangeal joint. Normal soft tissues. IMPRESSION: No acute fracture or subluxation. I have personally reviewed the images and I agree with this report. WSN: [id number] Ordering Physician: Courtney Esparza Dictated By: Lesley Patrick DO Dictated Date/Time: 11/30/19 2:21 pm Reviewed By: Gerard Ortega MD Signed By: Gerard Ortega MD Signed Date/Time: 11/30/19 2:26 pm Transcribed By: SONJA Transcribed Date/Time: 11/30/19 1:39 pm Vital Signs Most recent to oldest [Reference Range]: 1 2 3 Oxygen Saturation [94-100 %] 100 % (12/06/19 1:49 PM) 100 % (12/06/19 6:41 AM) 100 % (12/05/19 9:01 PM) Pulse Rate [55-90 bpm] 92 bpm *H* (12/06/19 1:49 PM) 84 bpm (12/06/19 6:41 AM) 102 bpm *H* (12/05/19 9:01 PM) Blood Pressure [90-138/55-84 mm Hg] 120/68mm Hg (12/06/19 1:49 PM) 118/84mm Hg (12/06/19 6:41 AM) 117/84mm Hg (12/05/19 9:01 PM) Respiratory Rate [16-30 br/min] 18 br/min (12/06/19 1:49 PM) 20 br/min (12/06/19 6:41 AM) 17 br/min (12/05/19 9:01 PM) Temperature [96.8-100.4 DegF] 98.8 DegF (12/06/19 1:49 PM) 97.2 DegF (12/06/19 6:41 AM) 98.1 DegF (12/05/19 9:01 PM) Mode of Delivery (Oxygen) Room air (12/06/19 1:49 PM) Room air (12/06/19 6:41 AM) Room air (12/05/19 9:01 PM) Blood pressure sites Arm, right (12/06/19 1:49 PM) Arm, right (12/06/19 6:41 AM) Arm, right (12/05/19 9:01 PM) Temperature Route Oral (12/06/19 1:49 PM) Oral (12/06/19 6:41 AM) Oral (12/05/19 9:01 PM) Social History Social History Type Response Smoking Status Former smoker, quit more than 30 days ago; Other: stopped 6 weeks ago; entered on: 03/10/19 Sex
--- OUTSIDE RECORDS SUMMARY | 2023-01-22 15:50 | XMS_ITS | Continuity of Care Document ---
Author Name Unknown Organization [facility] Address [address] [place] [address] [address] [place] [address]- Care Team Providers Care Lead Ruby On Rails Developer Name Role Phone Davina PERRY, [facility] Primary Care Physician En[facility] Date(s): 01/24/22 - 01/31/22 [facility] [address] [place], [place] [address] Attending Physician: Khurram Luke MD Referring Physician: Not on Staff, Referring MD Allergies, Adverse Reactions, Alerts No Known Allergies [...] 01/30/16 Not Given Patient Refuses 1Result Comment: [id number] Medications haloperidol 10 mg oral tablet 1, tablet, By Mouth, 2 times a day, # 60 tablet, Refills 0, Maintenance, 01/21/22 10:05:00 EST, Route to Pharmacy Electronically, [id number], 165, cm, 12/20/21 9:47:00 EDT, Height, 69.5, kg, 02/18/21 14:03:00 EST, Dry Weight Start Date: 01/21/22 Stop Date: 02/20/22 Status: Ordered traZODone 50 mg oral tablet 50 mg, 1, tablet, By Mouth, Daily at bedtime, # 30 tablet, Refills 2, Tot. Refills 2, Maintenance, 01/24/22 12:18:00 EST, Route to Pharmacy Electronically, [facility] [...] Confirmed Active Severe major depression Confirmed Active Vital Signs Most recent to oldest [Reference Range]: 1 Height 165 cm (01/24/22 12:54 PM) Pulse Rate [55-90 bpm] 71 bpm (01/24/22 12:54 PM) Blood Pressure [90-138/55-84 mm Hg] 110/ 64mm Hg (01/24/22 12:54 PM) Blood pressure sites Arm, left (01/24/22 12:54 PM) Social History Social History Type Response Tobacco Use: 4 or less cigar ettes(less than 1/4 pack)/day in last 30 days. Other: Reports 1 cig per day. Sex Patient Care team information Care Team Personnel Name: Laina Castillo RN Position: S RN Member Role: Primary Care Nurse Name: Chanel Sewell Position: S RN Member Role: Primary Care Nurse Name: Betzaida Ghosh MD Position: [facility] Primary Care Physician Member Role: PCP Address: Address: [address] [place] [address]- Name: Ferdinand Parisi RN Position: S RN Member Role: Primary Care Nurse Name: Desmond Almeida RN Position: [facility] SN RN Member Role: Primary Care Nurse Name: Patience Hanna RN Position: S RN Member Role: Primary Care Nurse Name: Ashleigh Hoff RN Position: S RN Member Role: Primary Care Nurse Name: Sarika Aguilera RN Position: S RN Member Role: Primary Care Nurse Care Team Related Persons Name: DECLINED, DECLINED Name: SHE LORENZO Address: home [address] [place] [address] Name: ANDREY REED Address: [address] [place] [address]
--- OUTSIDE RECORDS SUMMARY | 2023-01-22 15:50 | XMS_ITS | Continuity of Care Document ---
Author Name Unknown Organization [facility] Address [address] [place] [address] [address] [place] [address]- Care Team Providers Care Apartment Maintenance Worker Name Role Phone Betzaida Ghosh MD Primary Care Physician ( [phone] Encounter [facility] Date(s): 01/24/22 - 02/23/22 [facility] [address] [place], [place] [address] Attending Physician: Carlos Bhandari Admitting Physician: Carlos Bhandari Referring Physician: AdmtrCarlos Allergies, Adverse Reactions, Alerts No Known Allergies [...] 01/30/16 Not Given Patient Refuses 1Result Comment: [id number] Medications haloperidol 10 mg oral tablet 1, tablet, By Mouth, 2 times a day, # 60 tablet, Refills 0, Maintenance, 02/21/22 14:45:00 EST, Route to Pharmacy Electronically, [id number], 165, cm, 01/24/22 12:54:00 EST, Height, 69.5, kg, 02/18/21 14:03:00 EST, Dry Weight Start Date: 02/21/22 Stop Date: 03/23/22 Status: Ordered traZODone 50 mg oral tablet 50 mg, 1, tablet, By Mouth, Daily at bedtime, # 30 tablet, Refills 2, Tot. Refills 2, Maintenance, 01/24/22 12:18:00 EST, Route to Pharmacy Electronically, [facility]/pharmacy #[id number], Partial fill upon patient request if the [...] Team Personnel Name: Laina Castillo RN Position: [facility] RN Member Role: Primary Care Nurse Name: Chanel Sewell Position: S RN Member Role: Primary Care Nurse Name: Betzaida Ghosh MD Position: [facility] Primary Care Physician Member Role: PCP Address: Address: [address] [place] [address]- Name: Ferdinand Parisi RN Position: S RN Member Role: Primary Care Nurse Name: Desmond Almeida RN Position: [facility] SN RN Member Role: Primary Care Nurse Name: Patience Hanna RN Position: S RN Member Role: Primary Care Nurse Name: Ashleigh Hoff RN Position: S RN Member Role: Primary Care Nurse Name: Sarika Aguilera RN Position: S RN Member Role: Primary Care Nurse Care Team Related Persons Name: DECLINED, DECLINED Name: SHE LORENZO Address: home [address] [place] [address] Name: ANDREY REED Address: [address] [address]
--- OUTSIDE RECORDS SUMMARY | 2023-01-22 15:50 | XMS_ITS | Continuity of Care Document ---
Author Name Unknown Organization [facility] Address [address] [place] [address]- Care Team Providers Care Family Member Caretaker Name Role Phone Davina PERRY, [facility] Primary Care Physician [id number] Date(s): 09/26/21 - 10/26/21 [facility] [address] [place] [address]- Allergies, Adverse Reactions, Alerts No Known Allergies [...] 01/30/16 Not Given Patient Refuses 1Result Comment: [id number] Medications haloperidol 10 mg oral tablet 10 mg, 1, tablet, By Mouth, 2 times a day, # 60 tablet, Refills 0, Tot. Refills 0, Maintenance, 10/14/21 10:48:00 EDT, Route to Pharmacy Electronically, [facility]/pharmacy #[id number], Partial fill upon patient request if the prescription is for a schedule II opi... Start Date: 10/14/21 Status: Ordered lithium 450 mg oral tablet, extended release 1 tablet = 450 mg, By Mouth, 2 times a day, # 60 tablet, 0 Refills, Maintenance, 10/14/21 10:48:00 EDT, ER Tablet, [facility]/pharmacy #[id number], Partial fill upon patient request [...] affective disorder(Confirmed) Active Severe major depression(Confirmed) Active Social History Social History Type Response Tobacco Use: 4 or less cigar ettes(less than 1/4 pack)/day in last 30 days. Other: Reports 1 cig per day. Sex
--- OUTSIDE RECORDS SUMMARY | 2023-01-22 15:50 | XMS_ITS | Continuity of Care Document ---
Author Name Unknown Organization [facility] Address [address] [place] [address]- Care Team Providers Care Land Sales Agent Name Role Phone Davina PERRY, [facility] Primary Care Physician Encounter [facility] [place] Date(s): 09/10/22 - 10/10/22 [facility] [address] [place] [address] [place] Allergies, Adverse Reactions, Alerts No Known [...] 01/30/16 Not Given Patient Refuses 1Result Comment: [id number] Medications haloperidol 10 mg oral tablet 1, tablet, By Mouth, 2 times a day, # 60 tablet, Refills 0, Maintenance, 03/21/22 16:46:00 EST, Route to Pharmacy Electronically, [id number], 165, cm, 01/24/22 12:54:00 EST, Height, 69.5, kg, 02/18/21 14:03:00 EST, Dry Weight Start Date: 03/21/22 Stop Date: 04/20/22 Status: Ordered traZODone 50 mg oral tablet 50 mg, 1, tablet, By Mouth, Daily at bedtime, # 30 tablet, Refills 2, Tot. Refills 2, Maintenance, 07/15/22 8:27:00 EDT, Route to Pharmacy Electronically, [facility]/pharmacy #[id number], Partial fill upon patient request if the [...] Primary Care Member Role: PCP Address: Address: [address] [place] [address]- Name: Ferdinand Parisi RN Position: S RN Member Role: Primary Care Nurse Name: Desmond Almeida RN Position: [facility] RN Member Role: Primary Care Nurse Name: Sarika Aguilera RN Position: S RN Member Role: Primary Care Nurse Care Team Related Persons Name: DECLINED, DECLINED Name: LARISSA LORENZO Name: ANDREY REED Address: [address] [address]
--- OUTSIDE RECORDS SUMMARY | 2023-01-22 15:50 | XMS_ITS | Continuity of Care Document ---
Author Name Unknown Organization [facility] Address [address] [place] [address]- Care Team Providers Care Per Diem Clerk Name Role Phone Davina PERRY, [facility] Primary Care Physician [place] [facility] Date(s): 12/31/20 - 01/07/[address] [facility] [address] [place] [address]- Encounter Diagnosis Schizoaffective disorder(Discharge Diagnosis) - 12/31/20 Attending Physician: Davina PERRY, [facility] Allergies, Adverse Reactions, Alerts Substance Reaction Severity [...] 9:38:00 E... Start Date: 10/17/20 Status: Ordered naproxen 500 mg oral tablet 1 tablet = 500 mg, By Mouth, 2 times a day, PRN Pain , Moderate, for 30 days, # 60 tablet, 0 Refills, Acute 01/30/21 13:10:00 EST, 12/31/20 13:10:00 EDT, Tablet, [facility], Partial fill uponpatient request if the prescription is for a schedu... Start Date: 12/31/20 Stop Date: 01/30/21 Status: Ordered nicotine 2 mg oral transmucosal gum See Instructions, PRN Other, Chew Every hour as needed for nicotine cravings, # 160 each, 0 Refills, Maintenance, 10/17/20 14:29:00 EDT, Gum, [facility]/pharmacy #1026, Partial fill upon patient request if the prescription is for a schedule II opioid drug.,... Start Date: 10/17/20 Status: Ordered traZODone 100 mg oral tablet 100 mg, 1, tablet, By Mouth, Daily, # 30 tablet, Refills 0, Tot. Refills 0, Maintenance, 12/31/20 13:10:00 EDT, Route to Pharmacy Electronically, [id number], Partial fill upon patient requestif the prescription is for a schedule II opioid mili... Start Date: 12/31/20 Status: Ordered ZyPREXA Zydis 10 mg oral tablet, disintegrating 10 mg, 1, tablet, By Mouth, Daily in AM, # 30 tablet, Refills 0, Tot. Refills 0, Maintenance, 10/17/20 14:27:00 EDT, Route to Pharmacy Electronically, [id number], Partial fill upon patient request if the prescription is for a schedule II opioi... Start Date: 10/17/20 Status: Ordered ZyPREXA Zydis 20 mg oral tablet, disintegrating 1 tablet = 20 mg, By Mouth, Daily, # 30 tablet, 0 Refills, Maintenance, 12/31/20 13:10:00 EDT, DIS Tablet, [facility], Partial fill upon patient request if the prescription is for a schedule II opioid drug., 166, cm, 12/31/20 12:44:00 EDT, Hei... Start Date: 12/31/20 Stop Date: 01/30/21 Status: Ordered Problem List Condition Effective Dates Status Health Status Inform ant Abnormal liver function(Confirmed) Active Bipolar disorder(Confirmed) Active Insomnia(Confirmed) Active Seasonal affective disorder(Confirmed) Active Diagnosis Diagnosis Type Effective Dates Health Status Clinical Service Informant Schizoaffective disorder Discharge Diagnosis 12/31/20 Vital Signs Most recent to oldest [Reference Range]: 1 Height 166 cm (12/31/20 12:44 PM) Weight 77.9 kg (12/31/20 12:44 PM) Oxygen Saturation [94-100 %] 97 % (12/31/20 12:44 PM) Pulse Rate [55-90 bpm] 87 bpm (12/31/20 12:44 PM) Body Mass Index [18.5-24.99] 28.27 *H* (12/31/20 12:44 PM) Blood Pressure [90-138/55-84 mm Hg] 127/ 81mm Hg (12/31/20 12:44 PM) Mode of Delivery (Oxygen) Room air (12/31/20 12:44 PM) Blood pressure sites Arm, left (12/31/20 12:44 PM) Weight Obtained Via Standing scale (12/31/20 12:44 PM) Social History Social History Type Response Smoking Status 10 or more cigarette s (1/2 pack or more)/day in last 30 days; Other: pack a day; entered on: 12/12/19 Sex
--- OUTSIDE RECORDS SUMMARY | 2023-01-22 15:50 | XMS_ITS | Continuity of Care Document ---
Author Name Unknown Organization [facility] Address [address] [place] [address]- Care Team Providers Care Sales Support Engineer Name Role Phone Betzaida Ghosh MD Primary Care Physician ( [phone] [id number] Date(s): 09/12/19 - 09/19/[address] [address]- [facility] Encounter Diagnosis Bipolar disorder(Discharge Diagnosis) - 09/12/19 Insomnia(Discharge Diagnosis) - 09/12/19 Seasonal affective disorder(Discharge Diagnosis) - 09/12/19 Hepatitis C(Discharge Diagnosis) - 09/12/19 Attending Physician: Davina PERRY, Betzaida Allergies, Adverse Reactions, Alerts Substance Reaction Severity Status NKA Active Immunizations Given and Recorded Vaccine Date Status Refusal Reason pneumococcal 23-valent vaccine 12/21/18 Given Not Given Vaccine Date Status Refusal Reason pneumococcal 23-valent vaccine 01/30/16 Not Given Patient Refuses Medications olanzapine 20 mg oral tablet 1 tablet = 20 mg, By Mouth, Daily, # 30 tablet, 0 Refills, Maintenance, 09/12/19 15:44:00 EDT, Tablet, [id number], 166, cm, 09/12/19 15:24:00 EDT, Height, 75.6, kg, 12/20/18 12:33:00 EDT, DryWeight Start Date: 09/12/19 Status: Ordered traZODone 50 mg oral tablet 50 mg, 1, tablet, By Mouth, Daily at bedtime, PRN, Appt required for further refills, # 30 tablet, Refills 5, Tot. Refills 5, Maintenance, Insomnia, 04/01/19 16:19:00 EST, Route to Pharmacy Electronically, [facility]/pharmacy #[id number], 166, cm, 03/10/19 14:52:0... Start Date: 04/01/19 Status: Ordered Vitamin D3 1000 intl units oral tablet 1 tablet = 1,000 International_Units, By Mouth, Daily, # 30 tablet, 0 Refills, Maintenance, 03/10/19 15:16:00 EST, Tablet, [facility]/pharmacy #[id number], 166, cm, 03/10/19 14:52:00 EST, Height, 75.6, kg, 12/20/18 12:33:00 EDT, Dry Weight Start Date: 03/10/19 Status: Ordered Problem List Condition Effective Dates Status Health Status Inform ant Bipolar disorder(Confirmed) Active Insomnia(Confirmed) Active Seasonal affective disorder(Confirmed) Active Diagnosis Diagnosis Type Effective Dates Health Status Cl inical Service Informant Bipolar disorder Discharge Diagnosis 09/12/19 Insomnia Discharge Diagnosis 09/12/19 Seasonal affective disorder Discharge Diagnosis 09/12/19 Hepatitis C Discharge Diagnosis 09/12/19 Vital Signs Most recent to oldest [Reference Range]: 1 Height 166 cm (09/12/19 3:24 PM) Weight 87.7 kg (09/12/19 3:24 PM) Oxygen Saturation [94-100 %] 98 % (09/12/19 3:24 PM) Pulse Rate [55-90 bpm] 52 bpm *L* (09/12/19 3:24 PM) Body Mass Index [18.5-24.99] 31.83 *>HHI* (09/12/19 3:24 PM) Blood Pressure [90-138/55-84 mm Hg] 90/6 0mm Hg (09/12/19 3:24 PM) Mode of Delivery (Oxygen) Room air (09/12/19 3:24 PM) Blood pressure sites Arm, left (09/12/19 3:24 PM) Weight Obtained Via Standing scale (09/12/19 3:24 PM) Social History Social History Type Response Smoking Status Former smoker, quit more than 30 days ago; Other: stopped 6 weeks ago; entered on: 03/10/19 Sex
--- OUTSIDE RECORDS SUMMARY | 2023-01-22 15:50 | XMS_ITS | Continuity of Care Document ---
Author Name Unknown Organization [facility] Address [address] [place] [address]- Care Team Providers Care Barker Operator Name Role Phone Davina PERRY, [facility] Primary Care Physician [id number] Date[facility]11[facility]22 - 08/10/22 [facility] [address] [place] [address]- Allergies, Adverse Reactions, Alerts No Known Allergies [...] 01/30/16 Not Given Patient Refuses 1Result Comment: [id number] Medications haloperidol 10 mg oral tablet 1, tablet, By Mouth, 2 times a day, # 60 tablet, Refills 0, Maintenance, 03/21/22 16:46:00 EST, Route to Pharmacy Electronically, [id number], 165, cm, 01/24/22 12:54:00 EST, Height, 69.5, kg, 02/18/21 14:03:00 EST, Dry Weight Start Date: 03/21/22 Stop Date: 04/20/22 Status: Ordered Mavyret 100 mg-40 mg oral tablet 3 tablet, By Mouth, Daily, for 28 days, # 84 tablet, 1 Refills, Acute 09/04/22 16:48:00 EDT, 07/10/22 16:48:00 EDT, [facility], Partial fill upon patient request if the prescription is for a schedule II opioid drug., 3 tablet By Mouth... Start Date: 07/10/22 Stop Date: 09/04/22 Status: Ordered traZODone 50 mg oral tablet 50 mg, 1, tablet, By Mouth, Daily at bedtime, # 30 tablet, Refills 2, Tot. Refills 2, Maintenance, 07/15/22 8:27:00 EDT, Route to Pharmacy Electronically, [facility]/pharmacy #[id number], Partial fill upon patient request [...] Primary Care Member Role: PCP Address: Address: [address] [place] [address]- Name: Ferdinand Parisi RN Position: S RN Member Role: Primary Care Nurse Name: Desmond Almeida RN Position: [facility] RN Member Role: Primary Care Nurse Name: Sarika Aguilera RN Position: S RN Member Role: Primary Care Nurse Care Team Related Persons Name: DECLINED, DECLINED Name: LARISSA LORENZO Name: ANRDEY REED Address: [address] [address]
--- OUTSIDE RECORDS SUMMARY | 2023-01-22 15:50 | XMS_ITS | Continuity of Care Document ---
Author Name Unknown Organization [facility] Adult Address [address] [place] [address]- Care Team Providers Care Special Education Professor Name Role Phone Davina PERRY, [facility] Primary Care Physician Encounter [facility] [place] Date(s): 09/28/19 - 10/05/19 [facility] [address] [place] [address]- [facility] Encounter Diagnosis Jaw pain(Discharge Diagnosis) - 09/28/19 Ear pain(Discharge Diagnosis) - 09/28/19 Attending Physician: Lizabeth TUBE BACKER, Anaid Stokes Allergies, Adverse Reactions, Alerts Substance Reaction Severity Status NKA Active Immunizations Given and Recorded Vaccine Date Status Refusal Reason pneumococcal 23-valent vaccine 12/21/18 Given Not Given Vaccine Date Status Refusal Reason pneumococcal 23-valent vaccine 01/30/16 Not Given Patient Refuses Medications olanzapine 20 mg oral tablet 1 tablet = 20 mg, By Mouth, Daily, # 30 tablet, 0 Refills, Maintenance, 09/12/19 15:44:00 EDT, Tablet, [facility]/pharmacy #[id number], 166, cm, 09/12/19 15:24:00 EDT, Height, 75.6, kg, 12/20/18 12:33:00 EDT, DryWeight Start Date: 09/12/19 Status: Ordered traZODone 50 mg oral tablet 50 mg, 1, tablet, By Mouth, Daily at bedtime, PRN, Appt required for further refills, # 30 tablet, Refills 5, Tot. Refills 5, Maintenance, Insomnia, 04/01/19 16:19:00 EST, Route to Pharmacy Electronically, [facility]/pharmacy #[id number], 166, cm, 03/10/19 14:52:0... Start Date: [...] Diagnosis Diagnosis Type Effective Dates Health Status Clini mendoza Service Informant Jaw pain Discharge Diagnosis 09/28/19 Ear pain Discharge Diagnosis 09/28/19 Vital Signs Most recent to oldest [Reference Range]: 1 Height 166 cm (09/28/19 10:51 AM) Weight 87.8 kg (09/28/19 10:51 AM) Oxygen Saturation [94-100 %] 99 % (09/28/19 10:51 AM) Pulse Rate [55-90 bpm] 58 bpm (09/28/19 10:51 AM) Body Mass Index [18.5-24.99] 31.86 *>HHI* (09/28/19 10:51 AM) Blood Pressure [90-138/55-84 mm Hg] 116/ 72mm Hg (09/28/19 10:51 AM) Blood pressure sites Arm, right (09/28/19 10:51 AM) Weight Obtained Via Standing scale (09/28/19 10:51 AM) Social History Social History Type Response Smoking Status Former smoker, quit more than 30 days ago; Other: stopped 6 weeks ago; entered on: 03/10/19 Sex
--- OUTSIDE RECORDS SUMMARY | 2023-01-22 15:50 | XMS_ITS | Continuity of Care Document ---
Author Name Unknown Organization [facility] Address [address] [place] [address]- Care Team Providers Care Grocery Stocker Name Role Phone Davina PERRY, [facility] Primary Care Physician ( [phone] [facility] [facility] Date(s): 03/23/19 - 04/02/19 [facility] [address] [place] [address]- [facility] Attending Physician: Carlos Bhandari Admitting Physician: AdmCarlos cm Referring Physician: AdmtrCarlos Allergies, Adverse Reactions, Alerts Substance Reaction Severity [...] 04/13/19 16:55:00 EST, 03/14/19 16:55:00 EST, Tablet, [facility]/pharmacy #0957, 166, cm, 03/10/19 14:52:00 EST, Height, 75.6, kg, 12/20/18 12:33:00 EDT, DConchis.. Start Date: 03/14/19 Stop Date: 04/13/19 Status: Ordered naloxone 4 mg/0.1 mL nasal spray = 4 mg, Naris, Right, Once, # 2 each, 0 Refills, Soft Stop, 12/21/18 16:30:00 EDT Start Date: 12/21/18 Status: Ordered olanzapine 20 mg oral tablet 1 tablet = 20 mg, By Mouth, Daily, # 30 tablet, 1 Refills, Maintenance, 04/01/19 16:19:00 EST, Tablet, [facility]/pharmacy #[id number], 166, cm, [...]
--- OUTSIDE RECORDS SUMMARY | 2023-01-22 15:50 | XMS_ITS | Continuity of Care Document ---
Author Name Unknown Organization [facility] Adult Address [address] [place] [address]- Care Team Providers Care Diesel Technician Mechanic Name Role Phone Davina PERRY, [facility] [place] Date(s): 01/24/22 - 01/31/22 [facility] [address] [place] [id number] Attending Physician: Betzaiad Ghosh MD Allergies, Adverse Reactions, Alerts No Known [...] 01/30/16 Not Given Patient Refuses 1Result Comment: [id number] Medications haloperidol 10 mg oral tablet 1, tablet, By Mouth, 2 times a day, # 60 tablet, Refills 0, Maintenance, 01/21/22 10:05:00 EST, Route to Pharmacy Electronically, [facility], 165, cm, 12/20/21 9:47:00 EDT, Height, 69.5, kg, 02/18/21 14:03:00 EST, Dry Weight Start Date: 01/21/22 Stop Date: 02/20/22 Status: Ordered traZODone 50 mg oral tablet 50 mg, 1, tablet, By Mouth, Daily at bedtime, # 30 tablet, Refills 2, Tot. Refills 2, Maintenance, 01/24/22 12:18:00 EST, Route to Pharmacy Electronically, [facility]/pharmacy #[id number], Partial fill upon patient request [...] [Reference Range]: 1 Height 165 cm (01/24/22 12:03 PM) Social History Social History Type Response Tobacco Use: 4 or less cigar ettes(less than 1/4 pack)/day in last 30 days. Other: Reports 1 cig per day. Sex Patient Care team information Care Team Personnel Name: Laina Castillo RN Position: [facility] RN Member Role: Primary Care Nurse Name: Chanel Sewell Position: [facility] RN Member Role: Primary Care Nurse Name: Betzaida Ghosh MD Position: [facility] Primary Care Physician Member Role: PCP Address: Address: [address] [place] [phone]- Name: Ferdinand Parisi RN Position: S RN Member Role: Primary Care Nurse Name: Desmond Almeida RN Position: [facility] SN RN Member Role: Primary Care Nurse Name: Patience Hanna RN Position: S RN Member Role: Primary Care Nurse Name: Ashleigh Hoff RN Position: S RN Member Role: Primary Care Nurse Name: Sarika Aguilera RN Position: S RN Member Role: Primary Care Nurse Care Team Related Persons Name: DECLINED, DECLINED Name: SHE LORENZO Address: home [address] [place] [address] Name: ANDREY REED Address: [address] [address]
--- OUTSIDE RECORDS SUMMARY | 2023-01-22 15:50 | XMS_ITS | Continuity of Care Document ---
Author Name Unknown Organization [facility] Adult Address [address] [place] [address]- Care Team Providers Care Triple Air Valve Tester Name Role Phone Davina PERRY, [facility] Primary Care Physician Encounter [facility] Date(s): 04/22/21 - 04/29/21 [facility] Adult [address] [place] [address]- Encounter Diagnosis Bipolar disorder(Discharge Diagnosis) - 04/22/21 Seasonal affective disorder(Discharge Diagnosis) - 04/22/21 Illicit drug use(Discharge Diagnosis) - 04/22/21 Attending Physician: Davina PERRY, [facility] Allergies, Adverse Reactions, Alerts No Known Allergies [...] 01/30/16 Not Given Patient Refuses 1Result Comment: [id number] Medications olanzapine 15 mg oral tablet 2 [...] 04/22/21 14:59:00 EST, Route to Pharmacy Electronically, [facility]/pharmacy #[id number], Partial fill upon patient request if the prescription is for... Start Date: 04/22/21 Status: Ordered Problem List Condition Effective Dates Status Health Status Inform ant Abnormal liver function(Confirmed) Active Bipolar disorder(Confirmed) Active Insomnia(Confirmed) Active Seasonal affective disorder(Confirmed) Active Diagnosis Diagnosis Type Effective Dates Health Status Cl inical Service Informant Bipolar disorder Discharge Diagnosis 04/22/21 Seasonal affective disorder Discharge Diagnosis 04/22/21 Illicit drug use Discharge Diagnosis 04/22/21 Vital Signs Most recent to oldest [Reference Range]: 1 Height 165 cm (04/22/21 2:36 PM) Weight 77 kg (04/22/21 2:36 PM) Oxygen Saturation [94-100 %] 98 % (04/22/21 2:36 PM) Pulse Rate [55-90 bpm] 88 bpm (04/22/21 2:36 PM) Body Mass Index [18.5-24.99] 28.28 *H* (04/22/21 2:36 PM) Blood Pressure [90-138/55-84 mm Hg] 138/ 62mm Hg (04/22/21 2:36 PM) Temperature [96.8-100.4 DegF] 98.2 DegF (04/22/21 2:36 PM) Mode of Delivery (Oxygen) Room air (04/22/21 2:36 PM) Blood pressure sites Arm, left (04/22/21 2:36 PM) Temperature Route Temporal (04/22/21 2:36 PM) Weight Obtained Via Standing scale (04/22/21 2:36 PM) Social History Social History Type Response Smoking Status 10 or more cigarette s (1/2 pack or more)/day in last 30 days; Other: pack a day; entered on: 12/12/19 Sex
--- OUTSIDE RECORDS SUMMARY | 2023-01-22 15:50 | XMS_ITS | Continuity of Care Document ---
Author Name Unknown Organization [facility] Adult Address [address] [place] [address]- Care Team Providers Care Supervisor Furnace Process Name Role Phone [facility] Ramon [id number] Date(s[facility]/28/22 - 03/07/22 [facility] Adult [address] [place] [phone]- Attending Physician: Juan Ramon [facility] Allergies, Adverse Reactions, Alerts No Known Allergies [...] 01/30/16 Not Given Patient Refuses 1Result Comment: [id number] Medications haloperidol 10 mg oral tablet 1, tablet, By Mouth, 2 times a day, # 60 tablet, Refills 0, Maintenance, 02/21/22 14:45:00 EST, Route to Pharmacy Electronically, [facility] STORE [id number], 165, cm, 01/24/22 12:54:00 EST, Height, 69.5, kg, 02/18/21 14:03:00 EST, Dry Weight Start Date: 02/21/22 Stop Date: 03/23/22 Status: Ordered traZODone 50 mg oral tablet 50 mg, 1, tablet, By Mouth, Daily at bedtime, # 30 tablet, Refills 2, Tot. Refills 2, Maintenance, 01/24/22 12:18:00 EST, Route to Pharmacy Electronically, [facility]/pharmacy #[id number], Partial fill upon patient [...] Team Personnel Name: Laina Castillo RN Position: [facility] RN Member Role: Primary Care Nurse Name: Chanel Sewell Position: [facility] RN Member Role: Primary Care Nurse Name: Betzaida Ghosh MD Position: [facility] Primary Care Physician Member Role: PCP Address: Address: [address] [place] [address]- Name: Ferdinand Parisi RN Position: [facility] RN Member Role: Primary Care Nurse Name: Desmond Almeida RN Position: [facility] SN RN Member Role: Primary Care Nurse Name: Patience Hanna RN Position: S RN Member Role: Primary Care Nurse Name: Ashleigh Hoff RN Position: S RN Member Role: Primary Care Nurse Name: Sarika Aguilera RN Position: [facility] RN Member Role: Primary Care Nurse Care Team Related Persons Name: DECLINED, DECLINED Name: SHE LORENZO Address: home [address] [place] [address] Name: ANDREY REED Address: [address] [address]
--- OUTSIDE RECORDS SUMMARY | 2023-01-22 15:50 | XMS_ITS | Continuity of Care Document ---
Author Name Unknown Organization [facility] Address [address] [place] [address]- Care Team Providers Care Manager Agricultural Name Role Phone Davina PERRY, [facility] Primary Care Physician Encounter [facility] Date(s): 08/18/22 - 09/17/22 [facility] [address] [place] [address]- [place] Allergies, Adverse Reactions, Alerts No Known [...] 01/30/16 Not Given Patient Refuses 1Result Comment: [id number] Medications haloperidol 10 mg oral tablet 1, tablet, By Mouth, 2 times a day, # 60 tablet, Refills 0, Maintenance, 03/21/22 16:46:00 EST, Route to Pharmacy Electronically, [facility] STORE [id number], 165, cm, 01/24/22 12:54:00 EST, Height, 69.5, kg, 02/18/21 14:03:00 EST, Dry Weight Start Date: 03/21/22 Stop Date: 04/20/22 Status: Ordered traZODone 50 mg oral tablet 50 mg, 1, tablet, By Mouth, Daily at bedtime, # 30 tablet, Refills 2, Tot. Refills 2, Maintenance, 07/15/22 8:27:00 EDT, Route to Pharmacy Electronically, [facility]/pharmacy #[id number], Partial fill upon patient request if the [...] Primary Care Member Role: PCP Address: Address: [address] [place] [address]- Name: Ferdinand Parisi RN Position: S RN Member Role: Primary Care Nurse Name: Desmond Almeida RN Position: [facility] RN Member Role: Primary Care Nurse Name: Sarika Aguilera RN Position: S RN Member Role: Primary Care Nurse Care Team Related Persons Name: DECLINED, DECLINED Name: LARISSA LORENZO Name: ANDREY REED Address: [address] [address]
--- OUTSIDE RECORDS SUMMARY | 2023-01-22 15:50 | XMS_ITS | Continuity of Care Document ---
Author Name Unknown Organization [facility] Address [address] [place] [address]- Care Team Providers Care Carbon Capture Power Plant Operator Name Role Phone Davina PERRY, [facility] Primary Care Physician [place] [facility] Date(s): 07/07/22 - 08/06/22 [facility] [address] [place] [address]- [place] Allergies, Adverse Reactions, Alerts No Known [...] 01/30/16 Not Given Patient Refuses 1Result Comment: [id number] Medications haloperidol 10 mg oral tablet 1, tablet, By Mouth, 2 times a day, # 60 tablet, Refills 0, Maintenance, 03/21/22 16:46:00 EST, Route to Pharmacy Electronically, [facility] STORE [id number], 165, cm, 01/24/22 12:54:00 EST, Height, 69.5, kg, 02/18/21 14:03:00 EST, Dry Weight Start Date: 03/21/22 Stop Date: 04/20/22 Status: Ordered Mavyret 100 mg-40 mg oral tablet 3 tablet, By Mouth, Daily, for 28 days, # 84 tablet, 1 Refills, Acute 09/04/22 16:48:00 EDT, 07/10/22 16:48:00 EDT, [facility], Partial fill upon patient request if the prescription is for a schedule II opioid drug., 3 tablet By Mouth... Start Date: 07/10/22 Stop Date: 09/04/22 Status: Ordered traZODone 50 mg oral tablet 50 mg, 1, tablet, By Mouth, Daily at bedtime, # 30 tablet, Refills 2, Tot. Refills 2, Maintenance, 07/15/22 8:27:00 EDT, Route to Pharmacy Electronically, [facility]/pharmacy #[id number], Partial fill upon patient request if [...] Care Nurse Name: Betzaida Ghosh MD Position: [facility] Physician - Primary Care Member Role: PCP Address: Address: [address] [place] [address] [address] [place] [address]- Name: Ferdinand Parisi RN Position: S RN Member Role: Primary Care Nurse Name: Desmond Almeida RN Position: [facility] RN Member Role: Primary Care Nurse Name: Sarika Aguilera RN Position: S RN Member Role: Primary Care Nurse Care Team Related Persons Name: DECLINED, DECLINED Name: LARISSA LORENZO Name: ANDREY REED Address: [address] [place] [address]
--- OUTSIDE RECORDS SUMMARY | 2023-01-22 15:50 | XMS_ITS | Continuity of Care Document ---
Author Name Unknown Organization [facility] Adult Address [address] [place] [address]- Care Team Providers Care Director Of Marketing Google Performance Ads Name Role Phone Juan Ramon [facility] Phys[id number] Date[facility] 03/10/19 - 03/17/19 [facility] [address] [place] [address]- [facility] Encounter Diagnosis Annual physical exam(Discharge Diagnosis) - 03/10/19 Screening for STD (sexually transmitted disease)(Discharge Diagnosis) - 03/10/19 Attending Physician: Juan Ramon [facility] Allergies, Adverse Reactions, Alerts Substance Reaction Severity [...] 04/13/19 16:55:00 EST, 03/14/19 16:55:00 EST, Tablet, [facility]/pharmacy #[id number], 166, cm, 03/10/19 14:52:00 EST, [...] 0 Refills, Maintenance, 03/10/19 15:15:00 EST, Tablet, [facility]/pharmacy #[id number], 166, cm, 03/10/19 14:52:00 EST, Height, 75.6, kg, 12/20/18 12:33:00 EDT, DryWeight Start Date: 03/10/19 Status: Ordered traZODone 50 mg oral tablet 50 mg, 1, tablet, By Mouth, Daily at bedtime, PRN, # 30 tablet, Refills 0, Tot. Refills 0, Maintenance, Insomnia, 03/10/19 15:15:00 EST, Route to Pharmacy Electronically, [facility]/pharmacy #[id number], 166, cm,03/10/19 14:52:00 EST, Height, 75.6, kg, 12/20/18 1... Start Date: 03/10/19 Status: Ordered VITAMIN D3 1,000 UNIT SOFTGEL TAKE ONE CAPSULE BY MOUTH EVERY DAY Start Date: 03/10/19 Status: Ordered Vitamin D3 1000 intl units oral tablet 1 tablet = 1,000 International_Units, By Mouth, Daily, # 30 tablet, 0 Refills, Maintenance, 03/10/19 15:16:00 EST, Tablet, [facility]/pharmacy #[id number], 166, cm, 03/10/19 14:52:00 EST, Height, 75.6, kg, 12/20/18 12:33:00 EDT, Dry Weight Start Date: 03/10/19 Status: Ordered Problem List Condition Effective Dates Status Health Status Inform ant Bipolar disorder(Confirmed) Active Insomnia(Confirmed) Active Seasonal affective disorder(Confirmed) Active Diagnosis Diagnosis Type Effective Dates Health Status Clinical Service Informant Annual physical exam Discharge Diagnosis 03/10/19 Screening for STD (sexually transmitted disease) Discharge Diagnosis 03/10/19 Procedures Procedure Date Related Diagnosis Body Site Status Wrist 1 Completed 1Ligament repair in 2010 Vital Signs Most recent to oldest [Reference Range]: 1 Height 166 cm (03/10/19 2:52 PM) Weight 81.9 kg (03/10/19 2:52 PM) Oxygen Saturation [94-100 %] 99 % (03/10/19 2:52 PM) Pulse Rate [55-90 bpm] 85 bpm (03/10/19 2:52 PM) Body Mass Index [18.5-24.99] 29.72 *H* (03/10/19 2:52 PM) Blood Pressure [90-138/55-84 mm Hg] 118/ 78mm Hg (03/10/19 2:52 PM) Temperature [96.8-100.4 DegF] 99.2 DegF (03/10/19 2:52 PM) Mode of Delivery (Oxygen) Room air (03/10/19 2:52 PM) Blood pressure sites Arm, left (03/10/19 2:52 PM) Temperature Route Oral (03/10/19 2:52 PM) Weight Obtained Via Standing scale (03/10/19 2:52 PM) Social History Social History Type Response Smoking Status Former smoker, quit more than 30 days ago; Other: stopped 6 weeks ago; entered on: 03/10/19 Sex
--- OUTSIDE RECORDS SUMMARY | 2023-01-22 15:50 | XMS_ITS | Continuity of Care Document ---
Author Name Unknown Organization [facility] Adult Address [address] [place] [address]- Care Team Providers Care Still Operator Helper Name Role Phone Davina PERRY, [facility] Primary Care Physician ( [phone] [place] [facility] Date(s): 02/28/22 - 03/30/22 [facility] Adult [address] [place] [id number] Attending Physician: Carlos Bhandari Admitting Physician: AdmCarlos [...] 01/30/16 Not Given Patient Refuses 1Result Comment: [id number] Medications haloperidol 10 mg oral tablet 1, tablet, By Mouth, 2 times a day, # 60 tablet, Refills 0, Maintenance, 03/21/22 16:46:00 EST, Route to Pharmacy Electronically, [facility] ST[facility] [id number], 165, cm, 01/24/22 12:54:00 EST, Height, 69.5, kg, 02/18/21 14:03:00 EST, Dry Weight Start Date: 03/21/22 Stop Date: 04/20/22 Status: Ordered traZODone 50 mg oral tablet 50 mg, 1, tablet, By Mouth, Daily at bedtime, # 30 tablet, Refills 2, Tot. Refills 2, Maintenance, 01/24/22 12:18:00 EST, Route to Pharmacy Electronically, [facility]/pharmacy #[id number], Partial fill upon patient request if the [...] Team Personnel Name: Laina Castillo RN Position: [facility] RN Member Role: Primary Care Nurse Name: Chanel Sewell Position: [facility] RN Member Role: Primary Care Nurse Name: Betzaida Ghosh MD Position: [facility] Primary Care Physician Member Role: PCP Address: Address: [address] [place] [address]- Name: Ferdinand Parisi RN Position: [facility] ED RN W/OE and Tasks Member Role: Primary Care Nurse Name: Desmond Almeida RN Position: [facility] RN Member Role: Primary Care Nurse Name: Patience Hanna RN Position: [facility] RN Member Role: Primary Care Nurse Name: Ashleigh Hoff RN Position: [facility] RN Member Role: Primary Care Nurse Name: Sarika Aguilera RN Position: [facility] RN Member Role: Primary Care Nurse Care Team Related Persons Name: DECLINED, DECLINED Name: SHE LORENZO Address: [address] [place] [address] Name: ANDREY REED Address: home [address] [place] [id number]
--- OUTSIDE RECORDS SUMMARY | 2023-01-22 15:50 | XMS_ITS | Continuity of Care Document ---
Author Name Unknown Organization [facility] ter Address [address] [place] [address]- Care Team Providers Care Insurance Representative Name Role Phone Davina PERRY, [facility] Encounter [facility] Date(s): 11/27/19 - 11/28/[address] [address]- [place] Encounter Diagnosis Emilie(Final) - 11/27/19 Discharge Disposition: A-D/C Home Attending Physician: Eloy Pulido MD Admitting Physician: Eloy Pulido MD Referring Physician: Not on Staff, Referring [...] 0 Refills, Maintenance, 09/12/19 15:44:00 EDT, Tablet, [facility]/pharmacy #[id number], 166, cm, 09/12/19 15:24:00 EDT, Height, 75.6, kg, 12/20/18 12:33:00 EDT, DryWeight Start Date: 09/12/19 Status: Ordered traZODone 50 mg oral tablet 50 mg, 1, tablet, By Mouth, Daily at bedtime, PRN, Appt required for further refills, # 30 tablet, Refills 5, Tot. Refills 5, Maintenance, Insomnia, 04/01/19 16:19:00 EST, Route to Pharmacy Electronically, [facility]/pharmacy #[id number], 166, cm, 03/10/19 14:52:0... Start Date: [...] recent to oldest [Reference Range]: 1 2 Oxygen Saturation [94-100 %] 98 % (11/28/19 5:11 AM) 100 % (11/27/19 9:39 PM) Pulse Rate [55-90 bpm] 61 bpm (11/28/19 5:11 AM) 81 bpm (11/27/19 9:39 PM) Blood Pressure [90-138/55-84 mm Hg] 98/5 2mm Hg (11/28/19 5:11 AM) 137/93mm Hg (11/27/19 9:39 PM) Respiratory Rate [16-30 br/min] 20 br/mi n (11/27/19 9:39 PM) Temperature [96.8-100.4 DegF] 98.1 DegF (11/28/19 5:11 AM) 98.2 DegF (11/27/19 9:39 PM) Mode of Delivery (Oxygen) Room air (11/28/19 5:11 AM) Room air (11/27/19 9:39 PM) Blood pressure sites Arm, left (11/28/19 5:11 AM) Arm, right (11/27/19 9:39 PM) Temperature Route Oral (11/28/19 5:11 AM) Oral (11/27/19 9:39 PM) Social History Social History Type Response Smoking Status Former smoker, quit more than 30 days ago; Other: stopped 6 weeks ago; entered on: 03/10/19 Sex
--- OUTSIDE RECORDS SUMMARY | 2023-01-22 15:50 | XMS_ITS | Continuity of Care Document ---
Author Name Unknown Organization [facility] Adult Address [address] [place] [address]- Care Team Providers Care Wool Puller Name Role Phone Davina PERRY, [facility] Primary Care Physician Encounter [facility] Date(s): 08/04/22 - 09/03/22 [facility] Adult [address] [place] [address]- Attending Physician: Carlos Bhandari Admitting Physician: AdmCarlos [...] 01/30/16 Not Given Patient Refuses 1Result Comment: [id number] Medications haloperidol 10 mg oral tablet 1, tablet, By Mouth, 2 times a day, # 60 tablet, Refills 0, Maintenance, 03/21/22 16:46:00 EST, Route to Pharmacy Electronically, [facility] STORE [id number], 165, cm, 01/24/22 12:54:00 EST, Height, 69.5, kg, 02/18/21 14:03:00 EST, Dry Weight Start Date: 03/21/22 Stop Date: 04/20/22 Status: Ordered Mavyret 100 mg-40 mg oral tablet 3 tablet, By Mouth, Daily, for 28 days, # 84 tablet, 1 Refills, Acute 09/04/22 16:48:00 EDT, 07/10/22 16:48:00 EDT, [facility], Partial fill upon patient request if the prescription is for a schedule II opioid drug., 3 tablet By Mouth... Start Date: 07/10/22 Stop Date: 09/04/22 Status: Ordered traZODone 50 mg oral tablet 50 mg, 1, tablet, By Mouth, Daily at bedtime, # 30 tablet, Refills 2, Tot. Refills 2, Maintenance, 07/15/22 8:27:00 EDT, Route to Pharmacy Electronically, [facility]/pharmacy #[id number], Partial fill upon patient request [...] Care Nurse Name: Betzaida Ghosh MD Position: [facility] Physician - Primary Care Member Role: PCP Address: Address: [address] [place] [id number] Name: Ailin GUERRERO, Ferdinand العلي Position: S RN Member Role: Primary Care Nurse Name: Desmond Almeida RN Position: [facility] RN Member Role: Primary Care Nurse Name: Sarika Aguilera RN Position: S RN Member Role: Primary Care Nurse Care Team Related Persons Name: DECLINED, DECLINED Name: LARISSA LORENZO Name: ANDREY REED Address: [address] [address]
--- OUTSIDE RECORDS SUMMARY | 2023-01-22 15:50 | XMS_ITS | Continuity of Care Document ---
Author Name Unknown Organization [facility] Adult Address [address] [place] [address]- Care Team Providers Care Occupational Hygienist Name Role Phone Davina PERRY, [facility] Primary Care Physician Encounter [facility] Date(s): 12/02/21 - 01/01/22 [facility] [address] [place] [id number] Allergies, Adverse Reactions, Alerts No Known Allergies [...] 01/30/16 Not Given Patient Refuses 1Result Comment: [id number] Medications haloperidol 10 mg oral tablet 10 mg, 1, tablet, By Mouth, 2 times a day, # 60 tablet, Refills 0, Tot. Refills 0, Maintenance, 12/20/21 10:05:00 EDT, Route to Pharmacy Electronically, [facility]/pharmacy #[id number], Partial fill upon patient request if the [...] Care team information Personnel Name: Davina PERRY, [facility] Address: Address: [address] [place] [address] [address] [place], [place] [address]
--- OUTSIDE RECORDS SUMMARY | 2023-01-22 15:50 | XMS_ITS | Continuity of Care Document ---
Author Name Unknown Organization [facility] ter Address [address] [place] [address]- Care Team Providers Care Academic Affairs Assistant Name Role Phone Davina PERRY, [facility] Primary [facility] Physician En[facility] Date(s): 03/21/19 - 03/21/[address] [address] Attending Physician: Betzaida Ghosh MD Allergies, Adverse [...] 03/10/19 15:15:00 EST, Route to Pharmacy Electronically, [facility]/pharmacy #[id number], 166, cm,03/10/19 14:52:00 EST, Height, 75.6, kg, 12/20/18 1... Start Date: 03/10/19 Status: Ordered VITAMIN D3 1,000 UNIT SOFTGEL TAKE ONE CAPSULE BY MOUTH EVERY DAY Start Date: 03/10/19 Status: Ordered Vitamin D3 1000 intl units oral tablet 1 tablet = 1,000 International_Units, By Mouth, Daily, # 30 tablet, 0 Refills, Maintenance, 03/10/19 15:16:00 EST, Tablet, [facility]/pharmacy #[id number], 166, cm, 03/10/19 14:52:00 EST, Height, [...]
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
--- OUTSIDE RECORDS SUMMARY | 2023-01-22 15:50 | XMS_ITS | Continuity of Care Document ---
Author Name Unknown Organization [facility] Address [address] [place] [address]- Care Team Providers Care Psychiatric Assistant Name Role Phone Davina PERRY, [facility] Primary Care Physician [place] [facility] 05/13/22 - 06/12/22 [facility] [address] [place] [address]- Attending Physician: Carlos Bhandari Admitting Physician: Carlos [...] 01/30/16 Not Given Patient Refuses 1Result Comment: [id number] Medications haloperidol 10 mg oral tablet 1, tablet, By Mouth, 2 times a day, # 60 tablet, Refills 0, Maintenance, 03/21/22 16:46:00 EST, Route to Pharmacy Electronically, [facility], 165, cm, 01/24/22 12:54:00 EST, Height, 69.5, kg, 02/18/21 14:03:00 EST, Dry Weight Start Date: 03/21/22 Stop Date: 04/20/22 Status: Ordered traZODone 50 mg oral tablet 50 mg, 1, tablet, By Mouth, Daily at bedtime, # 30 tablet, Refills 2, Tot. Refills 2, Maintenance, 01/24/22 12:18:00 EST, Route to Pharmacy Electronically, [facility]/pharmacy #[id number], Partial fill upon patient request [...] Team Personnel Name: Laina Castillo RN Position: [facility] RN Member Role: Primary Care Nurse Name: Chanel Sewell Position: [facility] RN Member Role: Primary Care Nurse Name: Betzaida Ghosh MD Position: [facility] Primary Care Physician Member Role: PCP Address: Address: [address] [place] [address] [address] [place] [address]- Name: Ferdinand Parisi RN Position: [facility] RN Member Role: Primary Care Nurse Name: Desmond Almeida RN Position: [facility] RN Member Role: Primary Care Nurse Name: Ashleigh Hoff RN Position: [facility] RN Member Role: Primary Care Nurse Name: Sarika Aguilera RN Position: [facility] RN Member Role: Primary Care Nurse Care Team Related Persons Name: DECLINED, DECLINED Name: LARISSA LORENZO Name: ANDREY REED Address: [address] [place] [address]
--- OUTSIDE RECORDS SUMMARY | 2023-01-22 15:51 | XMS_ITS | Continuity of Care Document ---
Author Name Unknown Organization [facility] ter Address [address] [place] [address]- Care Team Providers Care Principal Android Developer Name Role Phone Davina PERRY, [facility] Primary Care Physician Encounter [facility] Date(s): 07/21/22 - 07/21/[address] [address]- Encounter Diagnosis Paranoid delusion(Final) - 07/21/22 Discharge Disposition: Transfer to [facility] Facility Attending Physician: Gerard Jesus MD Admitting Physician: [...] 01/30/16 Not Given Patient Refuses 1Result Comment: [id number] Medications haloperidol 10 mg oral tablet 1, tablet, By Mouth, 2 times a day, # 60 tablet, Refills 0, Maintenance, 03/21/22 16:46:00 EST, Route to Pharmacy Electronically, [facility], 165, cm, 01/24/22 12:54:00 EST, Height, 69.5, [...] 8:27:00 EDT, Route to Pharmacy Electronically, [facility]/pharmacy #[id number], Partial fill upon patient request if the [...] 1 2 3 Oxygen Saturation [94-100 %] 99 % (07/21/22 10:19 AM) 97 % (07/21/22 6:16 AM) 97 % (07/21/22 2:38 AM) Pulse Rate [55-90 bpm] 79 bpm (07/21/22 10:19 AM) 76 bpm (07/21/22 6:16 AM) 96 bpm *H* (07/21/22 2:38 AM) Blood Pressure [90-138/55-84 mm Hg] 129/62mm Hg (07/21/22 10:19 AM) 140/85mm Hg *H* (07/21/22 6:16 AM) 144/81mm Hg *H* (07/21/22 2:38 AM) Respiratory Rate [16-30 br/min] 16 br/min (07/21/22 10:19 AM) 18 br/min (07/21/22 6:16 AM) 20 br/min (07/21/22 2:38 AM) Temperature [96.8-100.4 DegF] 98.4 DegF (07/21/22 10:19 AM) 99 DegF (07/21/22 6:16 AM) 99.1 DegF (07/21/22 2:38 AM) Mode of Delivery (Oxygen) Room air (07/21/22 10:19 AM) Room air (07/21/22 6:16 AM) Room air (07/21/22 2:38 AM) Blood pressure sites Arm, left (07/21/22 10:19 AM) Arm, right (07/21/22 6:16 AM) Arm, right (07/21/22 2:38 AM) Temperature Route Oral (07/21/22 10:19 AM) Oral (07/21/22 6:16 AM) Oral (07/21/22 2:38 AM) Social History Social History Type Response Tobacco Use: 4 or less cigar ettes(less than 1/4 pack)/day in last 30 days. Other: Reports 1 cig per day. Sex EKG study * Event Display: ECG 12-Lead Authored Date: Please click on pdf link to open report * Event Display: ECG 12-Lead Authored Date: Ventricular Rate: 68 BPM Atrial Rate: 68 BPM P-R Interval: 170 ms QRS Duration: 84 ms Q-T Interval: 378 ms QTC Calculation(Bazett): 401 ms P [place]: 48 degrees R [place]: 7 degrees T [place]: 15 degrees Normal sinus rhythm Normal ECG When compared with ECG of 19-FEB-2021 14:33, No significant change was found Confirmed by GRAYSON SIMMONS DO ([id number]) on 07/21/2022 3:45:21 PM [place]: GRAYSON SIMMONS DO Patient Care team information Care Team Personnel Name: Laina Castillo RN Position: [facility] RN Member Role: Primary Care Nurse Name: Chanel Sewell Position: [facility] RN Member Role: Primary Care Nurse Name: Betzaida Ghosh MD Position: [facility] Primary Care Physician Member Role: PCP Address: Address: [address] Floor [place], [place] [address] Name: Ailin GUERRERO, Ferdinand العلي Position: [facility] RN Member Role: Primary Care Nurse Name: Desmond Almeida RN Position: [facility] SN RN Member Role: Primary Care Nurse Name: Sarika Aguilera RN Position: [facility] RN Member Role: Primary Care Nurse [facility] Attending Position: [facility] ED Attendings Patient Name: Gloria Newell RN Position: [facility] ED RN W/OE and Tasks Member Role: Patient Care Provider Name: Kourtney Casarez Position: [facility] ED TA [facility] Member Role: Supervisor Steno Pool Name: Gerard Jesus MD Position: [facility] ED Medicine MD Member Role: Admitting Physician Address: Address: [address] [place] [address] [place] [address]- [place] Care Team Related Persons Name: DECLINED, DECLINED Name: LARISSA LORENZO Name: ANDREY REED Address: [address] [place] [address]
--- OUTSIDE RECORDS SUMMARY | 2023-01-22 15:51 | XMS_ITS | Continuity of Care Document ---
Author Name Unknown Organization [facility] Address [address] [place] [address]- Care Team Providers Care Rack Cleaner Name Role Phone Davina PERRY, [facility] Primary Care Physician Encounter [facility] [place] Date(s): 07/17/22 - 08/16/22 [facility] [address] [place] [address]- Allergies, Adverse Reactions, Alerts No Known Allergies [...] 01/30/16 Not Given Patient Refuses 1Result Comment: [id number] Medications haloperidol 10 mg oral tablet 1, tablet, By Mouth, 2 times a day, # 60 tablet, Refills 0, Maintenance, 03/21/22 16:46:00 EST, Route to Pharmacy Electronically, [facility], 165, cm, 01/24/22 12:54:00 EST, Height, 69.5, kg, 02/18/21 14:03:00 EST, Dry Weight Start Date: 03/21/22 Stop Date: 04/20/22 Status: Ordered Mavyret 100 mg-40 mg oral tablet 3 tablet, By Mouth, Daily, for 28 days, # 84 tablet, 1 Refills, Acute 09/04/22 16:48:00 EDT, 07/10/22 16:48:00 EDT, [facility], Partial fill upon patient request if the prescription is for a schedule II opioid drug., 3 tablet By Mouth... Start Date: 07/10/22 Stop Date: 09/04/22 Status: Ordered traZODone 50 mg oral tablet 50 mg, 1, tablet, By Mouth, Daily at bedtime, # 30 tablet, Refills 2, Tot. Refills 2, Maintenance, 07/15/22 8:27:00 EDT, Route to Pharmacy Electronically, [facility]/pharmacy #[id number], Partial fill upon patient request [...] Team Personnel Name: Laina Castillo RN Position: [facility] RN Member Role: Primary Care Nurse Name: Chanel Sewell Position: S RN Member Role: Primary Care Nurse Name: Betzaida Ghosh MD Position: [facility] Physician - Primary Care Member Role: PCP Address: Address: [address] [place] [address] 3rd [place] [address]- Name: Ferdinand Parisi RN Position: S RN Member Role: Primary Care Nurse Name: Desmond Almeida RN Position: [facility] RN Member Role: Primary Care Nurse Name: Sarika Aguilera RN Position: S RN Member Role: Primary Care Nurse Care Team Related Persons Name: DECLINED, DECLINED Name: LARISSA LORENZO Name: ANDREY REED Address: [address] [address]"
--- OUTSIDE RECORDS SUMMARY | 2023-01-22 15:51 | XMS_ITS | Continuity of Care Document ---
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 Start Date: [...]
--- OUTSIDE RECORDS SUMMARY | 2023-01-22 15:51 | XMS_ITS | Continuity of Care Document ---
Author Name Unknown Organization [facility] Address [address] [place] [address]- Care Team Providers Care Conservation Science Officer Name Role Phone Davina PERRY, Betzaida Primary Care Physician ( [phone] [place] [facility]19 - 06/10/19 [facility] [address] [place] [address]- [facility] Attending Physician: Carlos Bhandari Admitting Physician: Carlos Bhandari Referring Physician: AdmCarlos cm Allergies, Adverse Reactions, Alerts Substance Reaction Severity [...] Refills, Acute, 04/07/19 12:28:00 EST, [facility], 166, cm, 03/10/19 14:52:00 EST, Height, 75.6, [...] 04/01/19 16:19:00 EST, Route to Pharmacy Electronically, [facility]/pharmacy #[id number], 166, cm, 03/10/19 14:52:0... Start Date: 04/01/19 Status: Ordered VITAMIN D3 1,000 UNIT SOFTGEL TAKE ONE CAPSULE BY MOUTH EVERY DAY Start Date: 03/10/19 Status: Ordered Vitamin D3 1000 intl units oral tablet 1 tablet = 1,000 International_Units, By Mouth, Daily, # 30 tablet, 0 Refills, Maintenance, 03/10/19 15:16:00 EST, Tablet, [facility]/pharmacy #[id number], 166, cm, 03/10/19 14:52:00 EST, Height, [...]
--- OUTSIDE RECORDS SUMMARY | 2023-01-22 15:51 | XMS_ITS | Continuity of Care Document ---
Author Name Unknown Organization [facility] Address [address] [place] [address]- Care Team Providers Care Director Of Corporate Strategy Name Role Phone Davina PERRY, [facility] Primary Care Physician [id number] Date(s): 10/15/21 - 11/14/21 [facility] [address] [place] [address]- Allergies, Adverse Reactions, Alerts No Known Allergies [...] 01/30/16 Not Given Patient Refuses 1Result Comment: [id number] Medications haloperidol 10 mg oral tablet 10 mg, 1, tablet, By Mouth, 2 times a day, # 60 tablet, Refills 0, Tot. Refills 0, Maintenance, 10/14/21 10:48:00 EDT, Route to Pharmacy Electronically, [facility]/pharmacy #[id number], Partial fill upon patient request if the prescription is for a schedule II opi... Start Date: 10/14/21 Status: Ordered lithium 450 mg oral tablet, extended release 1 tablet = 450 mg, By Mouth, 2 times a day, # 60 tablet, 0 Refills, Maintenance, 10/14/21 10:48:00 EDT, ER Tablet, [facility]/pharmacy #[id number], Partial fill upon patient request if [...] Other: Reports 1 cig per day. Sex Care Team Personnel Name: Davina PERRY, [facility] Address: [address] [place] [address] [address]rd [address] [place], [place] [address]
--- OUTSIDE RECORDS SUMMARY | 2023-01-22 15:51 | XMS_ITS | Continuity of Care Document ---
Author Name Unknown Organization [facility] Address [address] [place] [address]- Care Team Providers Care Sand Blaster Name Role Phone Betzaida Ghosh MD Primary Care Physician Encounter [facility] Date(s): 03/24/19 - 06/29/19 [facility] [address] [place] [address]- [facility] Attending Physician: Sarabjit Sherwood MD Admitting Physician: Sarabjit Sherwood MD Referring Physician: Betzaida Ghosh MD Allergies, Adverse Reactions, [...] tablet, 0 Refills, Acute, 04/07/19 12:28:00 EST, [facility], 166, cm, 03/10/19 14:52:00 EST, Height, 75.6, [...] 0 Refills, Maintenance, 04/22/19 15:27:00 EST, Tablet, [facility]/pharmacy #[id number], 166, cm, 03/10/19 14:52:00 EST, Height, 75.6, kg, 12/20/18 12:33:00 EDT, DryWeight Start Date: 04/22/19 Stop Date: 07/21/19 Status: Ordered traZODone 50 mg oral tablet 50 mg, 1, tablet, By Mouth, Daily at bedtime, PRN, Appt required for further refills, # 30 tablet, Refills 5, Tot. Refills 5, Maintenance, Insomnia, 04/01/19 16:19:00 EST, Route to Pharmacy Electronically, [facility]/pharmacy #[id number], 166, cm, 03/10/19 14:52:0... Start Date: 04/01/19 Status: Ordered VITAMIN D3 1,000 UNIT SOFTGEL TAKE ONE CAPSULE BY MOUTH EVERY DAY Start Date: 03/10/19 Status: Ordered Vitamin D3 1000 intl units oral tablet 1 tablet = 1,000 International_Units, By Mouth, Daily, # 30 tablet, 0 Refills, Maintenance, 03/10/19 15:16:00 EST, Tablet, [facility]/pharmacy #0957, 166, cm, 03/10/19 14:52:00 EST, [...]
--- OUTSIDE RECORDS SUMMARY | 2023-01-22 15:51 | XMS_ITS | Continuity of Care Document ---
Author Name Unknown Organization [facility] Address [address] [place] [address]- Care Team Providers Care Smoking Tobacco Packing Machine Hand Name Role Phone Davina PERRY, [facility] Primary Care Physician En[place] [facility] [place]s): 09/28/19 - 10/28/19 [facility] [address] [place] [address]- [facility] Attending Physician: Carlos Bhandari Admitting Physician: AdmCarlos cm Referring Physician: Admtr, Ar8 Allergies, Adverse Reactions, Alerts Substance Reaction Severity Status NKA Active Immunizations Given and Recorded Vaccine Date Status Refusal Reason pneumococcal 23-valent vaccine 12/21/18 Given Not Given Vaccine Date Status Refusal Reason pneumococcal 23-valent vaccine 01/30/16 Not Given Patient Refuses Medications olanzapine 20 mg oral tablet 1 tablet = 20 mg, By Mouth, Daily, # 30 tablet, 0 Refills, Maintenance, 09/12/19 15:44:00 EDT, Tablet, [facility]/pharmacy #[id number], 166, cm, 09/12/19 15:24:00 EDT, Height, 75.6, kg, 12/20/18 12:33:00 EDT, DryWeight Start Date: 09/12/19 Status: Ordered traZODone 50 mg oral tablet 50 mg, 1, tablet, By Mouth, Daily at bedtime, PRN, Appt required for further refills, # 30 tablet, Refills 5, Tot. Refills 5, Maintenance, Insomnia, 04/01/19 16:19:00 EST, Route to Pharmacy Electronically, [facility]/pharmacy #[id number], 166, cm, 03/10/19 14:52:0... Start Date: 04/01/19 Status: Ordered Vitamin D3 1000 intl units oral tablet 1 tablet = 1,000 International_Units, By Mouth, Daily, # 30 tablet, 0 Refills, Maintenance, 03/10/19 15:16:00 EST, Tablet, [facility]/pharmacy #[id number], 166, cm, 03/10/19 14:52:00 EST, [...]
--- OUTSIDE RECORDS SUMMARY | 2023-01-22 15:51 | XMS_ITS | Continuity of Care Document ---
Author Name Unknown Organization [facility] ter Address [address] [place] [address]- Care Team Providers Care Lyric Writer Name Role Phone Davina PERRY, [facility] Primary Care Physician Encounter [facility] Date(s): 09/15/19 - 10/25/[address] [address]- [facility] Attending Physician: Khurram Mcmanus Admitting Physician: Khurram [...] 0 Refills, Maintenance, 09/12/19 15:44:00 EDT, Tablet, [facility]/pharmacy #[id number], 166, cm, 09/12/19 15:24:00 EDT, Height, 75.6, kg, 12/20/18 12:33:00 EDT, DryWeight Start Date: 09/12/19 Status: Ordered traZODone 50 mg oral tablet 50 mg, 1, tablet, By Mouth, Daily at bedtime, PRN, Appt required for further refills, # 30 tablet, Refills 5, Tot. Refills 5, Maintenance, Insomnia, 04/01/19 16:19:00 EST, Route to Pharmacy Electronically, [facility]/pharmacy #[id number], 166, cm, 03/10/19 14:52:0... Start Date: 04/01/19 Status: Ordered Vitamin D3 1000 intl units oral tablet 1 tablet = 1,000 International_Units, By Mouth, Daily, # 30 tablet, 0 Refills, Maintenance, 03/10/19 15:16:00 EST, Tablet, [facility]/pharmacy #[id number], 166, cm, 03/10/19 14:52:00 EST, [...]
--- OUTSIDE RECORDS SUMMARY | 2023-01-22 15:51 | XMS_ITS | Continuity of Care Document ---
Author Name Unknown Organization [facility] Adult Address [address] [place] [address]- Care Team Providers Care Clinical Project Manager Name Role Phone [facility] Ram[facility] Primary Care Physician ( [phone] Encounter [facility] Date(s): 06/11/21 - 06/18/[address] [address]- Encounter Diagnosis Bipolar disorder(Discharge Diagnosis) - 06/11/21 Insomnia(Discharge Diagnosis) - 06/11/21 Seasonal affective disorder(Discharge Diagnosis) - 06/11/21 Severe depression(Discharge Diagnosis) - 06/11/21 Attending Physician: Davina PERRY [facility] Allergies, Adverse Reactions, Alerts No [...] 01/30/16 Not Given Patient Refuses 1Result Comment: [id number] Medications olanzapine 15 mg oral tablet 2 tablet = 30 mg, By Mouth, Daily at bedtime, # 60 tablet, 3 Refills, Maintenance, 06/11/21 9:19:00EDT, Tablet, [id number], Partial fill upon patient request if the prescription is for a schedule II opioid drug., 165, cm, 06/11/21 8:44:00 EDT... Start Date: 06/11/21 Status: Ordered traZODone 50 mg oral tablet 50 mg, 1, tablet, By Mouth, Daily at bedtime, PRN, # 30 tablet, Refills 3, Tot. Refills 3, Maintenance, Insomnia, 06/11/21 9:22:00 EDT, Route to Pharmacy Electronically, [id number], Partial fill upon patient request if the prescription is for... Start Date: 06/11/21 Status: Ordered Problem List Condition Effective Dates Status Health Status Inform ant Abnormal liver function(Confirmed) Active Bipolar disorder(Confirmed) Active Insomnia(Confirmed) Active Seasonal affective disorder(Confirmed) Active Diagnosis Diagnosis Type Effective Dates Health Status Clinical Service Informant Bipolar disorder Discharge Diagnosis 06/11/21 Insomnia Discharge Diagnosis 06/11/21 Seasonal affective disorder Discharge Diagnosis 06/11/21 Severe depression Discharge Diagnosis 06/11/21 Vital Signs Most recent to oldest [Reference Range]: 1 2 Height 165 cm (06/11/21 8:44 AM) 165 cm (06/11/21 8:35 AM) Weight 77.9 kg (06/11/21 8:35 AM) Oxygen Saturation [94-100 %] 100 % (06/11/21 8:35 AM) Pulse Rate [55-90 bpm] 59 bpm (06/11/21 8:35 AM) Body Mass Index [18.5-24.99] 28.61 *H* (06/11/21 8:35 AM) Blood Pressure [90-138/55-84 mm Hg] 137/ 84mm Hg (06/11/21 8:44 AM) 142/88mm Hg *H* (06/11/21 8:35 AM) Temperature [96.8-100.4 DegF] 99 DegF (06/11/21 8:35 AM) Mode of Delivery (Oxygen) Room air (06/11/21 8:35 AM) Blood pressure sites Arm, left (06/11/21 8:44 AM) Arm, left (06/11/21 8:35 AM) Temperature Route Temporal (06/11/21 8:35 AM) Weight Obtained Via Standing scale (06/11/21 8:35 AM) Social History Social History Type Response Smoking Status 10 or more cigarette s (1/2 pack or more)/day in last 30 days; Other: pack a day; entered on: 12/12/19 Sex
[2023-01-22 16:05] VITALS: BP 127/94; PULSE 88; TEMP 35
--- NOTE | 2023-01-22 16:45 | PC.ADMIT ---
Tank is a 32-year-old male admitted from [facility] pod to M3 on a CV (pt immediately signed 3-day on arrival and was informed it would go into effect after CV is accepted) for treatment of schizophrenia. Pt denies substance use but tox screen was positive for THC. Pt became homeless recently and was reported as a missing person by his family. Per crisis eval, pt denies SI but crisis eval states pt endorsed SI with plan to drown himself. Pt also endorses AH/VH where the voices yell at me and he sees shadowy figures. Crisis eval states pt has been noncompliant with medications. Pt has a therapist and psychiatrist through [facility] but refused to sign legals at this time. Pt is guarded, affect is flat, and pt provided limited responses to assessment questions. Pt appears internally preoccupied. Pt reports trouble sleeping recently. Pt placed on 15 min safety checks.
--- NOTE | 2023-01-22 17:30 | PC.NURSE ---
Pt already received flu vaccine this season
[2023-01-22 17:38] VITALS: BMI 32.9
[2023-01-22] MEDS: Ziprasidone 40 MG CAPSULE PO (20:32)
[2023-01-23 06:00] VITALS: BP 127/63; PULSE 63; RESP 18; TEMP 36.8; O2SAT 99
--- NOTE | 2023-01-23 09:19 | HO.PSYADMNOT ---
HPI Date of Service: 01/23/23 Chief Complaint: psychosis Sources of Information: patient interviewed, chart reviewed and crisis/core team assessment reviewed HPI Subjective Notes: Lee Warning, Conditional Voluntary and 3 Day Narrative: Patient is a 32 year old male with hx of schizophrenia who presented to the ER via EMS d/t suicidal ideation with plans to drown himself secondary to homelessness and medication noncompliance for the past two months. Per crisis report, pt has been reported as a missing person by his family for over a week; he was found outside of [facility] by police and EMS, living on the streets. Prior he was living with his mother and brother in [place], [place] but was asked to leave. He reported auditory hallucinations that yell at me and visual hallucinations of shadowy figures . Pt reported he had an argument with his family and he was told to leave the home. He reports receiving treatment at the [facility] but has not been medication compliant for the past two months. During admission assessment, patient presents calm, paranoid, and delusional. Patient reports feeling alright today. Pt stated, I don't want to drown myself anymore. I'm tired of getting kicked out of places. The shelters don't want me in there because of what my family did; I don't know what they did but that's why. I also trespassed a base by accident and now I'm getting an attitude from everyone and they say I'm a terrorist. I'm sure everyone knows me now . Patient reports he only had suicidal thoughts because I don't have anywhere to go . Reports smoking marijuana; denies any other substance use. UTOX positive for marijuana. Pt reports visual hallucinations of ghosts but they don't bother me . Denies SI/HI/AH. Patient reports he would like help starting his medications again and placement. Past Psychiatric History: Therapist-Skylar ([facility] ) Provider- Amita ([facility]) Medical Evaluation Reviewed: Yes [facility] Medical History Depression No known health problems Schizophrenia Surgical History H/O wrist surgery Family History: unknown Social History: homeless, disabled, single, no children. Substance History: marijuana. Trauma History: unknown Diagnostics Vital Signs (24Hr): Vital Signs - 24 hr 01/22/23 16:05 01/23/23 06:00 Temperature 95 F L 98.2 F Pulse Rate 88 63 Respiratory Rate 18 Blood Pressure 127/94 H 127/63 Pulse Oximetry 99 Oxygen Delivery Method Room Air BMI result Body Mass Index 32.9 Labs 01/22/23 00:14 01/23/23 08:45 Labs: Laboratory Results - last 48 hr 01/21/23 01/21/23 01/22/23 22:27 23:35 00:00 WBC RBC Hgb Hct MCV MCH MCHC RDW Plt Count MPV Immature Gran % (Auto) Neut % (Auto) Lymph % (Auto) [place] % (Auto) Eos % (Auto) Baso % (Auto) Lymph # (Auto) [place] # (Auto) Eos # (Auto) Baso # (Auto) Abs Immat Gran (auto) Absolute Neuts (auto) Absolute Nucleated RBC Nucleated RBC % (auto) Sodium 141 Potassium 3.7 Chloride 104 Carbon Dioxide 26 Anion Gap 15 BUN 16 Creatinine 1.24 Estim Creat Clear Calc 91.5 Estimated GFR > 60 Random Glucose 84 Calcium 10.1 D Total Bilirubin 0.3 AST 18 ALT 14 Alkaline Phosphatase 62 Total Protein 8.9 H Albumin 4.9 Urine Color Urine Appearance Urine pH Ur Specific [place] Urine Protein Urine Glucose (UA) Urine Ketones Urine Blood Urine Nitrite Ur Leukocyte Esterase Urine RBC Urine WBC Ur Squamous Epith Cells Urine Bacteria Hyaline Casts Urine Opiates Screen Not Detected Urine Fentanyl Screen Not Detected Ur Barbiturates Screen Not Detected Ur Phencyclidine Scrn Not Detected Ur Amphetamines Screen Not Detected U Benzodiazepines Scrn Not Detected Urine Cocaine Screen Not Detected U Marijuana (THC) Screen POSITIVE H Ethyl Alcohol < 10 COVID-19 (LESLEE) Negative COVID-19 Clin Com See Note Influenza Type A (ALLI) Negative Influenza Type B (ALLI) Negative Influenza A & B Note See Note 01/22/23 01/22/23 00:14 11:47 WBC 11.3 H RBC 4.61 Hgb 12.8 L Hct 38.9 L MCV 84.4 MCH 27.8 MCHC 32.9 RDW 13.1 Plt Count 280 MPV 10.5 Immature Gran % (Auto) 0.4 Neut % (Auto) 50.5 Lymph % (Auto) 32.7 [place] % (Auto) 10.9 Eos % (Auto) 5.1 H Baso % (Auto) 0.4 Lymph # (Auto) 3.7 [place] # (Auto) 1.2 Eos # (Auto) 0.6 H Baso # (Auto) 0.1 Abs Immat Gran (auto) 0.04 H Absolute Neuts (auto) 5.7 Absolute Nucleated RBC 0.000 Nucleated RBC % (auto) 0.0 Sodium Potassium Chloride Carbon Dioxide Anion Gap BUN Creatinine Estim Creat Clear Calc Estimated GFR Random Glucose Calcium Total Bilirubin AST ALT Alkaline Phosphatase Total Protein Albumin Urine Color Yellow Urine Appearance Clear Urine pH 5.5 Ur Specific [place] >= 1.030 H Urine Protein 30 (1+) H Urine Glucose (UA) Negative Urine Ketones Trace Urine Blood Negative Urine Nitrite Negative Ur Leukocyte Esterase Negative Urine RBC 0-2 Urine WBC 0-5 Ur Squamous Epith Cells 0-2 Urine Bacteria None Seen Hyaline Casts 0-2 Urine Opiates Screen Urine Fentanyl Screen Ur Barbiturates Screen Ur Phencyclidine Scrn Ur Amphetamines Screen U Benzodiazepines Scrn Urine Cocaine Screen U Marijuana (THC) Screen Ethyl Alcohol COVID-19 (LESLEE) COVID-19 Clin Com Influenza Type A (ALLI) Influenza Type B (ALLI) Influenza A & B Note Meds/Allergies Meds Home Medications Medication Instructions Recorded Confirmed Type nicotine (polacrilex) 2 mg gum 2 mg PO Q2H PRN Nicotine Cravings 01/21/23 01/21/23 History trazodone 50 mg tablet 50 - 100 mg PO BEDTIME PRN insomnia 01/21/23 01/21/23 History ziprasidone HCl 40 mg capsule 40 mg PO QPM 01/21/23 01/21/23 History Allergies Allergies Allergy/AdvReac Type Severity Reaction Status Date / Time No Known Allergies Allergy Unverified 01/21/23 12:49 Mental Status Exam Mental Status Exam Narrative: Pt is alert and oriented; behavior is cooperative and calm; dressed in hospital attire; mood is described as alright ; eye contact appropriate; Speech is normal rate, volume and prosody and not pressured; no psychomotor agitation/retardation present; thought process is goal directed; Thought content is on tx; paranoid, delusional; denies SI/HI/VH. Pt reports visual hallucinations. Patients insight and judgment are poor. Assessment & Plan Assessment & Plan (1) Schizophrenia, paranoid: Status: Acute Code(s): F20.0 - Paranoid schizophrenia Plan Patient is a 32 year old male with hx of schizophrenia who presented to the ER via EMS d/t suicidal ideation with plans to drown himself secondary to homelessness and medication noncompliance for the past two months. Plan: CV Pt signed 3 day Continue ziprasidone 40mg PO bedtime Obtain collateral Patient educated on: diagnosis, medication risk/benefits and therapeutic strategies Informed Consent: understands Reason for continued inpatient stay Substantial Risk for: med/psych decompensation Statement Statement: I have reviewed the history and physical and performed a pertinent examination on my patient. No changes have occurred unless specified. If the History and Physical was not performed prior to admission, the Hospitalist's service will be consulted for completing the admission physical. Time Spent With Patient Time: Total time managing care of this patient today _60___ minutes.
[2023-01-23 09:24] LABS: Alanine Aminotransferase 11 U/L (0-40); Albumin Level 4.3 g/dL (3.5-5.0); Alkaline Phosphatase 53 U/L (39-117); Anion Gap 9 (12-20); Aspartate Amino Transferase 15 U/L (5-37); Bilirubin Total 0.3 mg/dL (0.0-1.0); Blood Urea Nitrogen 14 mg/dL (9-16); Calcium 9.8 mg/dL (8.4-10.2); Carbon Dioxide 27 mmol/L (22-29); Chloride 110 mmol/L (96-108); Cholesterol 149 mg/dL (<200); Estimated Glomerular Filt Rate > 60; Glucose Fasting 108 mg/dL (60-99); HDL Cholesterol 28 mg/dL (>40); LDL Cholesterol Calculated 98 mg/dL (<100); Potassium 3.9 mmol/L (3.3-5.1); Sodium 142 mmol/L (135-145); Total Protein 7.8 g/dL (6.5-8.0); Triglycerides 115 mg/dL (<150)
[2023-01-23 19:53] VITALS: BP 130/66; PULSE 79; RESP 18; TEMP 36.8; O2SAT 99
[2023-01-23] MEDS: Ziprasidone 40 MG CAPSULE PO (23:08)
[2023-01-24 06:00] VITALS: BP 111/56; PULSE 71; TEMP 37.2; O2SAT 96
[2023-01-24] MEDS: hydrOXYzine HCL 25 MG TABLET PO ×2 (14:35→21:40)
[2023-01-24] MEDS: OLANZapine 5 MG TABLET PO (14:36)
[2023-01-24] MEDS: Ziprasidone 40 MG CAPSULE PO (17:17)
--- NOTE | 2023-01-24 18:06 | HO.PSYCHPN ---
Subjective Subjective Date of Service: 01/24/23 Reason For Visit: psychosis Interim History: has entered 3-day notice. then says he wants to stay because he doesn't feel right. asking for housing, says he will kill himself if hospital does not find him housing. irritable, labile. per staff, 3-day up wed. i'm suicidal. dep/anx. feels he is being mistreated by his family. CAH to shut the f*ck up. VH of shadows and ghosts. Mental Status Exam Mental Status Exam Narrative: Pt is alert and oriented; behavior is cooperative and calm; dressed in hospital attire; mood is described as alright ; eye contact appropriate; Speech is normal rate, volume and prosody and not pressured; no psychomotor agitation/retardation present; thought process is goal directed; Thought content is on housing. Patients insight and judgment are poor. Diagnostics Vital Signs (24Hr): Vital Signs - 24 hr 01/23/23 19:53 01/24/23 06:00 Temperature 98.2 F 99.0 F Pulse Rate 79 71 Respiratory Rate 18 Blood Pressure 130/66 111/56 L Pulse Oximetry 99 96 Oxygen Delivery Method Room Air Room Air BMI result Body Mass Index 32.9 Labs 01/22/23 00:14 01/23/23 08:45 Labs: Laboratory Results - last 48 hr 01/23/23 08:45 Sodium 142 Potassium 3.9 Chloride 110 H Carbon Dioxide 27 Anion Gap 9 L BUN 14 Creatinine 1.03 Estim Creat Clear Calc 107.0 Estimated GFR > 60 Fasting Glucose 108 H Calcium 9.8 Total Bilirubin 0.3 AST 15 ALT 11 Alkaline Phosphatase 53 Total Protein 7.8 Albumin 4.3 Triglycerides 115 Cholesterol 149 LDL Cholesterol, Calc 98 HDL Cholesterol 28 L Medications Medications Current Medications Acetaminophen (Acetaminophen 325 Mg Tablet) 650 mg PO Q6H PRN PRN Reason: Headache/Pain Mild Scale (1-3) Al Hydroxide/Mg Hydroxide (Magnesium Hydrox/Alum Hydrox 30 Ml Oral.Susp) 30 ml PO Q6H PRN PRN Reason: Heartburn/Nausea Hydroxyzine HCl (Hydroxyzine Hcl 25 Mg Tablet) 25 mg PO Q6H PRN PRN Reason: Anxiety Last Admin: 01/24/23 14:35 Dose: 25 mg Magnesium Hydroxide (Milk Of Magnesia 30 Ml Oral.Susp) 30 ml PO DAILY PRN PRN Reason: Constipation Nicotine Polacrilex (Nicotine Polacrilex 2 Mg Gum) 2 mg BUCCAL Q2H PRN PRN Reason: Nicotine Cravings Olanzapine (Olanzapine 5 Mg Tablet) 5 mg PO Q4H PRN PRN Reason: Psychosis Last Admin: 01/24/23 14:36 Dose: 5 mg Trazodone HCl (Trazodone Hcl 50 Mg Tablet) 50 mg PO BEDTIME MRX1 PRN PRN Reason: insomnia Ziprasidone (Ziprasidone 40 Mg Capsule) 40 mg PO DAILY@1700 DELFIN Last Admin: 01/24/23 17:17 Dose: 40 mg Allergies Allergies Allergy/AdvReac Type Severity Reaction Status Date / Time No Known Allergies Allergy Unverified 01/21/23 12:49 Assessment & Plan Assessment & Plan (1) Schizophrenia, paranoid: Status: Acute Code(s): F20.0 - Paranoid schizophrenia Plan Patient is a 32 year old male with hx of schizophrenia who presented to the ER via EMS d/t suicidal ideation with plans to drown himself secondary to homelessness and medication noncompliance for the past two months. Plan: CV Pt signed 3 day Continue ziprasidone 40mg PO bedtime Obtain collateral 01/24: geodon changed to Q5pm for absorption. T/C adding second dose of 40 mg to AM. irritable, labile, threatening suicide if he is not provided housing by the hospital. Reason for continued inpatient stay Substantial Risk for: harm to self, inability to function and rapid decompensation Time Spent With Patient Time: Total time managing care of this patient today ____ minutes.
[2023-01-24 21:43] VITALS: BP 119/67; PULSE 71; RESP 16; TEMP 36.7; O2SAT 98
[2023-01-25 08:07] VITALS: BP 102/59; PULSE 70; RESP 20; TEMP 36.3; O2SAT 95
[2023-01-25] MEDS: hydrOXYzine HCL 25 MG TABLET PO ×2 (08:16→16:30)
[2023-01-25] MEDS: OLANZapine 5 MG TABLET PO ×2 (08:16→16:30)
[2023-01-25] MEDS: Ziprasidone 40 MG CAPSULE PO (16:30)
[2023-01-25 19:40] VITALS: BP 135/80; PULSE 76; RESP 15; TEMP 36.6; O2SAT 98
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
[2023-01-25] MEDS: traZODone HCL 50 MG TABLET PO (21:51)
[2023-01-26] MEDS: Ziprasidone 40 MG CAPSULE PO ×2 (08:58→18:20)
[2023-01-26 09:11] VITALS: BP 128/76; PULSE 72; RESP 20; TEMP 36.5; O2SAT 100
[2023-01-26] MEDS: Acetaminophen 325 MG TABLET 650 MG PO (09:17)
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
[2023-01-26 20:25] VITALS: BP 111/54; PULSE 85; RESP 16; TEMP 37.2; O2SAT 98
[2023-01-27 08:30] VITALS: BP 128/64; PULSE 80; RESP 18; TEMP 36.7; O2SAT 96
[2023-01-27] MEDS: Ziprasidone 40 MG CAPSULE PO ×2 (09:32→17:56)
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
[2023-01-27 20:30] VITALS: BP 145/69; PULSE 100; RESP 18; TEMP 36.9; O2SAT 100
[2023-01-28] MEDS: Ziprasidone 40 MG CAPSULE PO ×2 (08:11→17:00)
[2023-01-28 08:27] VITALS: BP 139/75; PULSE 69; RESP 16; TEMP 36.4; O2SAT 100
[2023-01-28] MEDS: OLANZapine 5 MG TABLET PO (13:41)
[2023-01-28] MEDS: LORazepam 1 MG TABLET PO (14:38)
[2023-01-28] MEDS: HaloperidoL 5 MG TABLET 10 MG PO (14:39)
[2023-01-28 20:07] VITALS: BP 122/58; PULSE 80; RESP 16; TEMP 37; O2SAT 95
--- NOTE | 2023-01-28 20:32 | HO.PSYCHPN ---
Subjective Subjective Date of Service: 01/28/23 Reason For Visit: psychosis Subjective Notes: Conditional Voluntary Healthcare Proxy: Yes Interim History: Pt reports he has told this typewriter mechanic a lot. He reports they refering to the government know that he has disclosed confidential information and now everyone here, including the TV singing [employer] to him. He states people on unit are singing Tank can you see.. as he sings tune of [employer]. He denies SI/HI. However, he reports he can't trust anyone and very worried about his safety. He reports informants including his family will let government know his location and he will be kill. He reports seeing shadows as we were speaking, stating there are Ghost following me all the time. He then goes to say... I don't here voices, medication is working well, I'm fine Later pt singing [place] loudly in common area, becoming more agitated and restless, he did agree to take PRN olanzapine with ativan and later agree to take haldol. Diagnostics Vital Signs (24Hr): Vital Signs - 24 hr 01/28/23 08:27 Temperature 97.6 F Pulse Rate 69 Respiratory Rate 16 Blood Pressure 139/75 Pulse Oximetry 100 Oxygen Delivery Method Room Air BMI result Body Mass Index 32.9 Labs 01/22/23 00:14 01/23/23 08:45 Medications Medications Current Medications Acetaminophen (Acetaminophen 325 Mg Tablet) 650 mg PO Q6H PRN PRN Reason: Headache/Pain Mild Scale (1-3) Last Admin: 01/26/23 09:17 Dose: 650 mg Al Hydroxide/Mg Hydroxide (Magnesium Hydrox/Alum Hydrox 30 Ml Oral.Susp) 30 ml PO Q6H PRN PRN Reason: Heartburn/Nausea Benztropine Mesylate (Benztropine Mesylate 1 Mg Tablet) 1 mg PO TID PRN PRN Reason: Extrapyramidal Effects Haloperidol (Haloperidol 5 Mg Tablet) 5 mg PO Q6H PRN PRN Reason: agitation Hydroxyzine HCl (Hydroxyzine Hcl 25 Mg Tablet) 25 mg PO Q6H PRN PRN Reason: Anxiety Last Admin: 01/25/23 16:30 Dose: 25 mg Magnesium Hydroxide (Milk Of Magnesia 30 Ml Oral.Susp) 30 ml PO DAILY PRN PRN Reason: Constipation Nicotine Polacrilex (Nicotine Polacrilex 2 Mg Gum) 2 mg BUCCAL Q2H PRN PRN Reason: Nicotine Cravings Trazodone HCl (Trazodone Hcl 50 Mg Tablet) 50 mg PO BEDTIME MRX1 PRN PRN Reason: insomnia Last Admin: 01/25/23 21:51 Dose: 50 mg Ziprasidone (Ziprasidone 40 Mg Capsule) 40 mg PO DAILY@1700 [facility] Last Admin: 01/28/23 17:00 Dose: 40 mg Ziprasidone (Ziprasidone 40 Mg Capsule) 40 mg PO DAILY@0800 [facility] Last Admin: 01/28/23 08:11 Dose: 40 mg Allergies Allergies Allergy/AdvReac Type Severity Reaction Status Date / Time No Known Allergies Allergy Unverified 01/21/23 12:49 Assessment & Plan Assessment & Plan (1) Schizophrenia, paranoid: Status: Acute Code(s): F20.0 - Paranoid schizophrenia Plan Patient is a 32 year old male with hx of schizophrenia who presented to the ER via EMS d/t suicidal ideation with plans to drown himself secondary to homelessness and medication noncompliance for the past two months. Plan: CV Pt signed 3 day Continue ziprasidone 40mg PO bedtime Obtain collateral 01/24: geodon changed to Q5pm for absorption. T/C adding second dose of 40 mg to AM. irritable, labile, threatening suicide if he is not provided housing by the hospital. 01/25: geodon dosing changed to BIDWM. less labile today, only somewhat sullen and hostile in attitude. 01/26- consider increasing geodon or switching antipsychotic 01/27 continue tx. 01/28 continue geodone, but will change prn olanzapine to haldol. Will discussed switching geodone to haldol, which he has been on in the past. Reason for continued inpatient stay Substantial Risk for: inability to function Time Spent With Patient Time: Total time managing care of this patient today ____ minutes.
[2023-01-29 07:54] VITALS: BP 121/66; PULSE 72; RESP 16; TEMP 36.6; O2SAT 100
[2023-01-29 08:21] VITALS: BMI 35.1
[2023-01-29] MEDS: Ziprasidone 40 MG CAPSULE PO (08:38)
--- NOTE | 2023-01-29 10:16 | P.PNPSI_ITS ---
Subjective Subjective Date of Service: 01/29/23 Reason For Visit: psychosis Subjective Notes: Conditional Voluntary Interim History: Pt reports feeling calmer today. He reports haldol was helpful and agrees to switch geodon to haldol, which he has been on in the past. He has been mostly in his room, but continues to present with complex paranoid delusions of government trying to recruit him because he has some ability to see things others can't. He also continues to believe that mother and brother are also trying to harm him and he is not safe at his mother's house. He reports he feels somewhat safe here. He has been taking medications as prescribed. He continues to report that only place where he will be safe is on the streets. He is also very malodorous. Medication Compliance: Yes Side effects from medications: No Attending Groups: No Review of Systems Review of Systems Constitutional : No Fever, No Chills ENT/Mouth : No Ear Pain, No Nasal Congestion, No sore throat Eyes: No Eye Pain, No Swelling, No Redness Cardiovascular : No Chest Pain, No SOB Respiratory : No Cough, No Sputum, No Dyspnea Gastrointestinal : No Nausea, No Vomiting, No Diarrhea, No Hematochezia, No Melena Genitourinary : No Dysuria, No Urinary Frequency, No Hematuria Musculoskeletal : No Myalgias Skin : No Skin Lesions, No rash Neuro : No Weakness, No Numbness, No Paresthesias, No Dizziness, No Headache Psych : positive Anxiety, positive Depression, positive SI, no HI, pos AH/VH Heme/Lymph: No Lymphadenopathy Endocrine : No Polyuria, No Polydipsia All other systems reviewed and are negative Constitutional: Reports as per HPI Eyes: Reports as per HPI Reports as per HPI Cardiovascular: Reports as per HPI Respiratory: Reports as per HPI Gastrointestinal: Reports as per HPI Genitourinary: Reports as per HPI Musculoskeletal: Reports as per HPI Skin/Breast: Reports as per HPI Reports as per HPI Psychiatric: Reports as per HPI Endocrine: Reports as per HPI Hematologic/Lymphatic: Reports as per HPI Allergic/Immunologic: Reports as per HPI Mental Status Exam Mental Status Exam Narrative: Pt is alert and oriented; behavior is cooperative and calm; dressed in hospital attire, very malodorous; mood is described as all right ; eye contact appropriate; Speech is normal rate, volume and prosody and not pressured; no psychomotor agitation/retardation present; thought process is goal directed; Thought content is on government going after him, family trying to harm him. Patients insight and judgment are poor. Diagnostics Vital Signs (24Hr): Vital Signs - 24 hr 01/28/23 20:07 01/29/23 07:54 Temperature 98.6 F 97.9 F Pulse Rate 80 72 Respiratory Rate 16 16 Blood Pressure 122/58 L 121/66 Pulse Oximetry 95 100 Oxygen Delivery Method Room Air Room Air BMI result Body Mass Index 35.1 Labs 01/22/23 00:14 01/23/23 08:45 Medications Medications Current Medications Acetaminophen (Acetaminophen 325 Mg Tablet) 650 mg PO Q6H PRN PRN Reason: Headache/Pain Mild Scale (1-3) Last Admin: 01/26/23 09:17 Dose: 650 mg Al Hydroxide/Mg Hydroxide (Magnesium Hydrox/Alum Hydrox 30 Ml Oral.Susp) 30 ml PO Q6H PRN PRN Reason: Heartburn/Nausea Benztropine Mesylate (Benztropine Mesylate 1 Mg Tablet) 1 mg PO TID PRN PRN Reason: Extrapyramidal Effects Haloperidol (Haloperidol 5 Mg Tablet) 5 mg PO Q6H PRN PRN Reason: agitation Hydroxyzine HCl (Hydroxyzine Hcl 25 Mg Tablet) 25 mg PO Q6H PRN PRN Reason: Anxiety Last Admin: 01/25/23 16:30 Dose: 25 mg Magnesium Hydroxide (Milk Of Magnesia 30 Ml Oral.Susp) 30 ml PO DAILY PRN PRN Reason: Constipation Nicotine Polacrilex (Nicotine Polacrilex 2 Mg Gum) 2 mg BUCCAL Q2H PRN PRN Reason: Nicotine Cravings Trazodone HCl (Trazodone Hcl 50 Mg Tablet) 50 mg PO BEDTIME MRX1 PRN PRN Reason: insomnia Last Admin: 01/25/23 21:51 Dose: 50 mg Ziprasidone (Ziprasidone 40 Mg Capsule) 40 mg PO DAILY@1700 [facility] Last Admin: 01/28/23 17:00 Dose: 40 mg Ziprasidone (Ziprasidone 40 Mg Capsule) 40 mg PO DAILY@0800 [facility] Last Admin: 01/29/23 08:38 Dose: 40 mg Allergies Allergies Allergy/AdvReac Type Severity Reaction Status Date / Time No Known Allergies Allergy Unverified 01/21/23 12:49 Assessment & Plan Assessment & Plan (1) Schizophrenia, paranoid: Status: Acute Code(s): F20.0 - Paranoid schizophrenia Plan Patient is a 32 year old male with hx of schizophrenia who presented to the ER via EMS d/t suicidal ideation with plans to drown himself secondary to homelessness and medication noncompliance for the past two months. Plan: CV Pt signed 3 day Continue ziprasidone 40mg PO bedtime Obtain collateral 01/24: geodon changed to Q5pm for absorption. T/C adding second dose of 40 mg to AM. irritable, labile, threatening suicide if he is not provided housing by the hospital. 01/25: geodon dosing changed to BIDWM. less labile today, only somewhat sullen and hostile in attitude. 01/26- consider increasing geodon or switching antipsychotic 01/27 continue tx. 01/28 continue geodone, but will change prn olanzapine to haldol. Will discussed switching geodone to haldol, which he has been on in the past. 01/29 stop geodone. start haldol 5mg po BID. Reason for continued inpatient stay Substantial Risk for: inability to function Time Spent With Patient Time: Total time managing care of this patient today ____ minutes.
[2023-01-29 19:47] VITALS: BP 122/75; PULSE 91; RESP 16; TEMP 36.9; O2SAT 96
[2023-01-29] MEDS: traZODone HCL 50 MG TABLET PO (21:48)
[2023-01-29] MEDS: Benztropine Mesylate 1 MG TABLET PO (21:48)
[2023-01-29] MEDS: HaloperidoL 5 MG TABLET PO (21:48)
[2023-01-30 08:02] VITALS: BP 118/60; PULSE 71; RESP 16; TEMP 36.6; O2SAT 99
[2023-01-30] MEDS: Benztropine Mesylate 1 MG TABLET PO ×2 (08:07→20:29)
[2023-01-30] MEDS: HaloperidoL 5 MG TABLET PO (08:07)
[2023-01-30] MEDS: OLANZapine ODT 10 MG TAB.RAPDIS TRANSLINGU (15:29)
--- NOTE | 2023-01-30 19:00 | HO.PSYCHPN ---
Subjective Subjective Date of Service: 01/30/23 Reason For Visit: psychosis Subjective Notes: Conditional Voluntary Interim History: Pt reports he feels safe here. He reports God has a plan for everyone. He is very malodorous and this policy writer typist asked pt when was last time he showered. He states it's been 3 weeks now. He reports he can't shower because he needs to build up filth for when he goes on the streets and sleeps on the streets. He reports he has ability to not freeze to like other humans stating that I sleep like a baby cover by snow He continues to believe that he is not safe going to a assisted or respite or much less going back to his mother's house. Collateral information from mother- reports pt hx of schizophrenia for more than 10 years. She reports pt decompensates becomes more paranoid including towards family, usually will leave the home. She file a missing person report and then police found him and brought him here. Mother reports he was recently switched from haldol to geodone, it appears haldol was more effective. Mother also reports he uses cannabis which makes him more psychotic. Mother reports he was not aggressive towards them- mother and his older brother, but she reports she worries that he will stay on the streets, in the cold Review of Systems Review of Systems Constitutional : No Fever, No Chills ENT/Mouth : No Ear Pain, No Nasal Congestion, No sore throat Eyes: No Eye Pain, No Swelling, No Redness Cardiovascular : No Chest Pain, No SOB Respiratory : No Cough, No Sputum, No Dyspnea Gastrointestinal : No Nausea, No Vomiting, No Diarrhea, No Hematochezia, No Melena Genitourinary : No Dysuria, No Urinary Frequency, No Hematuria Musculoskeletal : No Myalgias Skin : No Skin Lesions, No rash Neuro : No Weakness, No Numbness, No Paresthesias, No Dizziness, No Headache Psych : positive Anxiety, positive Depression, positive SI, no HI, pos AH/VH Heme/Lymph: No Lymphadenopathy Endocrine : No Polyuria, No Polydipsia All other systems reviewed and are negative Constitutional: Reports as per HPI Eyes: Reports as per HPI Reports as per HPI Cardiovascular: Reports as per HPI Respiratory: Reports as per HPI Gastrointestinal: Reports as per HPI Genitourinary: Reports as per HPI Musculoskeletal: Reports as per HPI Skin/Breast: Reports as per HPI Reports as per HPI Psychiatric: Reports as per HPI Endocrine: Reports as per HPI Hematologic/Lymphatic: Reports as per HPI Allergic/Immunologic: Reports as per HPI Mental Status Exam Mental Status Exam Narrative: Pt is alert and oriented; behavior is cooperative and calm; dressed in hospital attire, very malodorous; mood is described as all right ; eye contact appropriate; Speech is normal rate, volume and prosody and not pressured; no psychomotor agitation/retardation present; thought process is goal directed; Thought content is on government going after him, family trying to harm him. Patients insight and judgment are poor. Diagnostics Vital Signs (24Hr): Vital Signs - 24 hr 01/29/23 19:47 01/30/23 08:02 Temperature 98.4 F 97.9 F Pulse Rate 91 71 Respiratory Rate 16 16 Blood Pressure 122/75 118/60 Pulse Oximetry 96 99 Oxygen Delivery Method Room Air Room Air BMI result Body Mass Index 35.1 Labs 01/22/23 00:14 01/23/23 08:45 Medications Medications Current Medications Acetaminophen (Acetaminophen 325 Mg Tablet) 650 mg PO Q6H PRN PRN Reason: Headache/Pain Mild Scale (1-3) Last Admin: 01/26/23 09:17 Dose: 650 mg Al Hydroxide/Mg Hydroxide (Magnesium Hydrox/Alum Hydrox 30 Ml Oral.Susp) 30 ml PO Q6H PRN PRN Reason: Heartburn/Nausea Benztropine Mesylate (Benztropine Mesylate 1 Mg Tablet) 1 mg PO BID [facility] Last Admin: 01/30/23 08:07 Dose: 1 mg Haloperidol (Haloperidol 5 Mg Tablet) 10 mg PO BID [facility] Hydroxyzine HCl (Hydroxyzine Hcl 25 Mg Tablet) 25 mg PO Q6H PRN PRN Reason: Anxiety Last Admin: 01/25/23 16:30 Dose: 25 mg Lorazepam (Lorazepam 1 Mg Tablet) 1 mg PO Q4H PRN PRN Reason: agitation/anxiety Magnesium Hydroxide (Milk Of Magnesia 30 Ml Oral.Susp) 30 ml PO DAILY PRN PRN Reason: Constipation Nicotine Polacrilex (Nicotine Polacrilex 2 Mg Gum) 2 mg BUCCAL Q2H PRN PRN Reason: Nicotine Cravings Olanzapine (Olanzapine Odt 10 Mg Tab.Rapdis) 10 mg TRANSLINGU Q6H PRN PRN Reason: agitation Last Admin: 01/30/23 15:29 Dose: 10 mg Trazodone HCl (Trazodone Hcl 50 Mg Tablet) 50 mg PO BEDTIME MRX1 PRN PRN Reason: insomnia Last Admin: 01/29/23 21:48 Dose: 50 mg Allergies Allergies Allergy/AdvReac Type Severity Reaction Status Date / Time No Known Allergies Allergy Unverified 01/21/23 12:49 Assessment & Plan Assessment & Plan (1) Schizophrenia, paranoid: Status: Acute Code(s): F20.0 - Paranoid schizophrenia Plan Patient is a 32 year old male with hx of schizophrenia who presented to the ER via EMS d/t suicidal ideation with plans to drown himself secondary to homelessness and medication noncompliance for the past two months. Plan: 01/24: geodon changed to Q5pm for absorption. T/C adding second dose of 40 mg to AM. irritable, labile, threatening suicide if he is not provided housing by the hospital. 01/25: geodon dosing changed to BIDWM. less labile today, only somewhat sullen and hostile in attitude. 01/26- consider increasing geodon or switching antipsychotic 01/27 continue tx. 01/28 continue geodone, but will change prn olanzapine to haldol. Will discussed switching geodone to haldol, which he has been on in the past. 01/29 d/c geodone. start haldol 5mg po BID 01/30 increase haldol 10mg po BID. cogentin 1mg po BID. Reason for continued inpatient stay Substantial Risk for: inability to function Time Spent With Patient Time: Total time managing care of this patient today ____ minutes.
[2023-01-30 20:26] VITALS: BP 134/74; PULSE 104; RESP 14; TEMP 37.1; O2SAT 100
[2023-01-30] MEDS: HaloperidoL 5 MG TABLET 10 MG PO (20:29)
[2023-01-31] MEDS: HaloperidoL 5 MG TABLET 10 MG PO ×2 (07:51→20:33)
[2023-01-31] MEDS: Benztropine Mesylate 1 MG TABLET PO ×2 (07:52→20:33)
[2023-01-31 08:30] VITALS: BP 128/77; PULSE 78; RESP 17; TEMP 36.7; O2SAT 98
--- NOTE | 2023-01-31 17:16 | HO.PSYCHPN ---
Subjective Subjective Date of Service: 01/31/23 Reason For Visit: psychosis Interim History: Patient seen and discussed with RN. Patient continues guarded and paranoid. He appears to be responding to internal stimuli. He reports he is feeling well. He denies any symptoms when asked directly. He denies SI. Review of Systems Review of Systems Constitutional : No Fever, No Chills ENT/Mouth : No Ear Pain, No Nasal Congestion, No sore throat Eyes: No Eye Pain, No Swelling, No Redness Cardiovascular : No Chest Pain, No SOB Respiratory : No Cough, No Sputum, No Dyspnea Gastrointestinal : No Nausea, No Vomiting, No Diarrhea, No Hematochezia, No Melena Genitourinary : No Dysuria, No Urinary Frequency, No Hematuria Musculoskeletal : No Myalgias Skin : No Skin Lesions, No rash Neuro : No Weakness, No Numbness, No Paresthesias, No Dizziness, No Headache Psych : positive Anxiety, positive Depression, positive SI, no HI, pos AH/VH Heme/Lymph: No Lymphadenopathy Endocrine : No Polyuria, No Polydipsia All other systems reviewed and are negative Constitutional: Reports as per HPI Eyes: Reports as per HPI Reports as per HPI Cardiovascular: Reports as per HPI Respiratory: Reports as per HPI Gastrointestinal: Reports as per HPI Genitourinary: Reports as per HPI Musculoskeletal: Reports as per HPI Skin/Breast: Reports as per HPI Reports as per HPI Psychiatric: Reports as per HPI Endocrine: Reports as per HPI Hematologic/Lymphatic: Reports as per HPI Allergic/Immunologic: Reports as per HPI Mental Status Exam Mental Status Exam Narrative: Pt is alert and oriented; behavior is cooperative and calm; dressed in hospital attire, very malodorous; mood is described as all right ; eye contact appropriate; Speech is normal rate, volume and prosody and not pressured; no psychomotor agitation/retardation present; thought process is goal directed; Thought content is on government going after him, family trying to harm him. Patients insight and judgment are poor. Diagnostics Vital Signs (24Hr): Vital Signs - 24 hr 01/30/23 20:26 01/31/23 08:30 Temperature 98.7 F 98.1 F Pulse Rate 104 H 78 Respiratory Rate 14 17 Blood Pressure 134/74 128/77 Pulse Oximetry 100 98 Oxygen Delivery Method Room Air Room Air BMI result Body Mass Index 35.1 Labs 01/22/23 00:14 01/23/23 08:45 Medications Medications Current Medications Acetaminophen (Acetaminophen 325 Mg Tablet) 650 mg PO Q6H PRN PRN Reason: Headache/Pain Mild Scale (1-3) Last Admin: 01/26/23 09:17 Dose: 650 mg Al Hydroxide/Mg Hydroxide (Magnesium Hydrox/Alum Hydrox 30 Ml Oral.Susp) 30 ml PO Q6H PRN PRN Reason: Heartburn/Nausea Benztropine Mesylate (Benztropine Mesylate 1 Mg Tablet) 1 mg PO BID [facility] Last Admin: 01/31/23 07:52 Dose: 1 mg Haloperidol (Haloperidol 5 Mg Tablet) 10 mg PO BID [facility] Last Admin: 01/31/23 07:51 Dose: 10 mg Hydroxyzine HCl (Hydroxyzine Hcl 25 Mg Tablet) 25 mg PO Q6H PRN PRN Reason: Anxiety Last Admin: 01/25/23 16:30 Dose: 25 mg Lorazepam (Lorazepam 1 Mg Tablet) 1 mg PO Q4H PRN PRN Reason: agitation/anxiety Magnesium Hydroxide (Milk Of Magnesia 30 Ml Oral.Susp) 30 ml PO DAILY PRN PRN Reason: Constipation Nicotine Polacrilex (Nicotine Polacrilex 2 Mg Gum) 2 mg BUCCAL Q2H PRN PRN Reason: Nicotine Cravings Olanzapine (Olanzapine Odt 10 Mg Tab.Rapdis) 10 mg TRANSLINGU Q6H PRN PRN Reason: agitation Last Admin: 01/30/23 15:29 Dose: 10 mg Trazodone HCl (Trazodone Hcl 50 Mg Tablet) 50 mg PO BEDTIME MRX1 PRN PRN Reason: insomnia Last Admin: 01/29/23 21:48 Dose: 50 mg Allergies Allergies Allergy/AdvReac Type Severity Reaction Status Date / Time No Known Allergies Allergy Unverified 01/21/23 12:49 Assessment & Plan Assessment & Plan (1) Schizophrenia, paranoid: Status: Acute Code(s): F20.0 - Paranoid schizophrenia Plan Patient is a 32 year old male with hx of schizophrenia who presented to the ER via EMS d/t suicidal ideation with plans to drown himself secondary to homelessness and medication noncompliance for the past two months. Plan: 01/24: geodon changed to Q5pm for absorption. T/C adding second dose of 40 mg to AM. irritable, labile, threatening suicide if he is not provided housing by the hospital. 01/25: geodon dosing changed to BIDWM. less labile today, only somewhat sullen and hostile in attitude. 01/26- consider increasing geodon or switching antipsychotic 01/27 continue tx. 01/28 continue geodone, but will change prn olanzapine to haldol. Will discussed switching geodone to haldol, which he has been on in the past. 01/29 d/c geodone. start haldol 5mg po BID 01/30 increase haldol 10mg po BID. cogentin 1mg po BID. 01/31: Continue current management and treatment plan. Reason for continued inpatient stay Substantial Risk for: inability to function and rapid decompensation Time Spent With Patient Time: Total time managing care of this patient today ____ minutes.
[2023-01-31 20:35] VITALS: BP 133/63; PULSE 74; TEMP 37.5; O2SAT 97
[2023-01-31 21:18] VITALS: TEMP 36.8
[2023-02-01 07:50] VITALS: BP 118/59; PULSE 76; RESP 16; TEMP 37.8; O2SAT 95
[2023-02-01] MEDS: HaloperidoL 5 MG TABLET 10 MG PO ×2 (08:02→22:16)
[2023-02-01] MEDS: Benztropine Mesylate 1 MG TABLET PO ×2 (08:02→22:16)
[2023-02-01] MEDS: OLANZapine ODT 10 MG TAB.RAPDIS TRANSLINGU (14:24)
--- NOTE | 2023-02-01 16:03 | HO.PSYCHPN ---
Subjective Subjective Date of Service: 02/01/23 Reason For Visit: psychosis Interim History: Patient seen and discussed with RN. Patient reports feeling well, Says he has no hallucinations. He continues guarded. He told RN he sees a lion and a pit bull chasing him. He is not engaged with others but visible in the milieu. Sometimes appears to be responding to internal stimuli. He denies any symptoms when asked directly. He denies SI. Review of Systems Review of Systems Constitutional : No Fever, No Chills ENT/Mouth : No Ear Pain, No Nasal Congestion, No sore throat Eyes: No Eye Pain, No Swelling, No Redness Cardiovascular : No Chest Pain, No SOB Respiratory : No Cough, No Sputum, No Dyspnea Gastrointestinal : No Nausea, No Vomiting, No Diarrhea, No Hematochezia, No Melena Genitourinary : No Dysuria, No Urinary Frequency, No Hematuria Musculoskeletal : No Myalgias Skin : No Skin Lesions, No rash Neuro : No Weakness, No Numbness, No Paresthesias, No Dizziness, No Headache Psych : positive Anxiety, positive Depression, positive SI, no HI, pos AH/VH Heme/Lymph: No Lymphadenopathy Endocrine : No Polyuria, No Polydipsia All other systems reviewed and are negative Constitutional: Reports as per HPI Eyes: Reports as per HPI Reports as per HPI Cardiovascular: Reports as per HPI Respiratory: Reports as per HPI Gastrointestinal: Reports as per HPI Genitourinary: Reports as per HPI Musculoskeletal: Reports as per HPI Skin/Breast: Reports as per HPI Reports as per HPI Psychiatric: Reports as per HPI Endocrine: Reports as per HPI Hematologic/Lymphatic: Reports as per HPI Allergic/Immunologic: Reports as per HPI Mental Status Exam Mental Status Exam Narrative: Pt is alert and oriented; behavior is cooperative and calm; dressed in hospital attire, very malodorous; mood is described as all right ; eye contact appropriate; Speech is normal rate, volume and prosody and not pressured; no psychomotor agitation/retardation present; thought process is goal directed; Thought content is on government going after him, family trying to harm him. Patients insight and judgment are poor. Diagnostics Vital Signs (24Hr): Vital Signs - 24 hr 01/31/23 20:35 01/31/23 21:18 02/01/23 07:50 Temperature 99.5 F 98.2 F 100.0 F Pulse Rate 74 76 Respiratory Rate 16 Blood Pressure 133/63 118/59 L Pulse Oximetry 97 95 Oxygen Delivery Method Room Air Room Air BMI result Body Mass Index 35.1 Labs 01/22/23 00:14 01/23/23 08:45 Medications Medications Current Medications Acetaminophen (Acetaminophen 325 Mg Tablet) 650 mg PO Q6H PRN PRN Reason: Headache/Pain Mild Scale (1-3) Last Admin: 01/26/23 09:17 Dose: 650 mg Al Hydroxide/Mg Hydroxide (Magnesium Hydrox/Alum Hydrox 30 Ml Oral.Susp) 30 ml PO Q6H PRN PRN Reason: Heartburn/Nausea Benztropine Mesylate (Benztropine Mesylate 1 Mg Tablet) 1 mg PO BID [facility] Last Admin: 02/01/23 08:02 Dose: 1 mg Haloperidol (Haloperidol 5 Mg Tablet) 10 mg PO BID [facility] Last Admin: 02/01/23 08:02 Dose: 10 mg Hydroxyzine HCl (Hydroxyzine Hcl 25 Mg Tablet) 25 mg PO Q6H PRN PRN Reason: Anxiety Last Admin: 01/25/23 16:30 Dose: 25 mg Lorazepam (Lorazepam 1 Mg Tablet) 1 mg PO Q4H PRN PRN Reason: agitation/anxiety Magnesium Hydroxide (Milk Of Magnesia 30 Ml Oral.Susp) 30 ml PO DAILY PRN PRN Reason: Constipation Nicotine Polacrilex (Nicotine Polacrilex 2 Mg Gum) 2 mg BUCCAL Q2H PRN PRN Reason: Nicotine Cravings Olanzapine (Olanzapine Odt 10 Mg Tab.Rapdis) 10 mg TRANSLINGU Q6H PRN PRN Reason: agitation Last Admin: 02/01/23 14:24 Dose: 10 mg Trazodone HCl (Trazodone Hcl 50 Mg Tablet) 50 mg PO BEDTIME MRX1 PRN PRN Reason: insomnia Last Admin: 01/29/23 21:48 Dose: 50 mg Allergies Allergies Allergy/AdvReac Type Severity Reaction Status Date / Time No Known Allergies Allergy Unverified 01/21/23 12:49 Assessment & Plan Assessment & Plan (1) Schizophrenia, paranoid: Status: Acute Code(s): F20.0 - Paranoid schizophrenia Plan Patient is a 32 year old male with hx of schizophrenia who presented to the ER via EMS d/t suicidal ideation with plans to drown himself secondary to homelessness and medication noncompliance for the past two months. Plan: 01/24: geodon changed to Q5pm for absorption. T/C adding second dose of 40 mg to AM. irritable, labile, threatening suicide if he is not provided housing by the hospital. 01/25: geodon dosing changed to BIDWM. less labile today, only somewhat sullen and hostile in attitude. 01/26- consider increasing geodon or switching antipsychotic 01/27 continue tx. 01/28 continue geodone, but will change prn olanzapine to haldol. Will discussed switching geodone to haldol, which he has been on in the past. 01/29 d/c geodone. start haldol 5mg po BID 01/30 increase haldol 10mg po BID. cogentin 1mg po BID. 01/31: Continue current management and treatment plan. 04/03: Continue current management and treatment plan. Reason for continued inpatient stay Substantial Risk for: harm to self, inability to function and rapid decompensation Time Spent With Patient Time: Total time managing care of this patient today ____ minutes.
--- NOTE | 2023-02-01 18:32 | PC.NURSE ---
Patient submitted 3 day note.
[2023-02-01] MEDS: LORazepam 1 MG TABLET PO (18:44)
--- NOTE | 2023-02-01 18:44 | PC.NURSE ---
Pt became agitated and began raising his voice after the kitchen forgot to bring up his dinner tray. Pt stated I told you something important, I told you that I was seeing a lion and two pitbulls and now my dinner isn't here. Isn't that a coincidence? Someone is messing with me and I'm not gonna have it. Now I have to sit here while everyone else is finished, and if I'm still hungry then it will be too late to call for seconds. Someone is messing with me. Pt was able to accept redirection and accepted Ativan 1mg PO PRN.
[2023-02-01 19:44] VITALS: BP 113/56; PULSE 87; RESP 16; TEMP 36.8; O2SAT 96
[2023-02-02 07:40] VITALS: BP 116/61; PULSE 104; RESP 16; TEMP 36.7; O2SAT 95
[2023-02-02] MEDS: HaloperidoL 5 MG TABLET 10 MG PO (08:45)
[2023-02-02] MEDS: Benztropine Mesylate 1 MG TABLET PO ×2 (08:45→21:45)
--- NOTE | 2023-02-02 14:43 | HO.PSYCHPN ---
Subjective Subjective Date of Service: 02/02/23 Reason For Visit: psychosis Interim History: paranoid, delusional, ideas of reference. denies SI/HI. says he will discharge to correction then says he won't discharge to correction but will sleep on a bench in front of the police station. states he must discharge by 02/15 so he can get his check. per staff, 3-day up weds. flat, withdrawn. paranoid. VH. meds and meals compliant. seeing lion and a pit bull. got ativan 1 mg due to paranoid agitation. Mental Status Exam Mental Status Exam Narrative: Pt is alert and oriented; behavior is cooperative and calm; dressed in street clothes; eye contact appropriate; Speech is normal rate, volume and prosody and not pressured; no psychomotor agitation/retardation present; thought process is linear; Thought content is paranoid delusions. Patients insight and judgment are poor. Diagnostics Vital Signs (24Hr): Vital Signs - 24 hr 02/01/23 19:44 02/02/23 07:40 Temperature 98.2 F 98.0 F Pulse Rate 87 104 H Respiratory Rate 16 16 Blood Pressure 113/56 L 116/61 Pulse Oximetry 96 95 Oxygen Delivery Method Room Air Room Air BMI result Body Mass Index 35.1 Labs 01/22/23 00:14 01/23/23 08:45 Medications Medications Current Medications Acetaminophen (Acetaminophen 325 Mg Tablet) 650 mg PO Q6H PRN PRN Reason: Headache/Pain Mild Scale (1-3) Last Admin: 01/26/23 09:17 Dose: 650 mg Al Hydroxide/Mg Hydroxide (Magnesium Hydrox/Alum Hydrox 30 Ml Oral.Susp) 30 ml PO Q6H PRN PRN Reason: Heartburn/Nausea Benztropine Mesylate (Benztropine Mesylate 1 Mg Tablet) 1 mg PO BID [facility] Last Admin: 02/02/23 08:45 Dose: 1 mg Haloperidol (Haloperidol 5 Mg Tablet) 10 mg PO BID [facility] Last Admin: 02/02/23 08:45 Dose: 10 mg Hydroxyzine HCl (Hydroxyzine Hcl 25 Mg Tablet) 25 mg PO Q6H PRN PRN Reason: Anxiety Last Admin: 01/25/23 16:30 Dose: 25 mg Lorazepam (Lorazepam 1 Mg Tablet) 1 mg PO Q4H PRN PRN Reason: agitation/anxiety Last Admin: 02/01/23 18:44 Dose: 1 mg Magnesium Hydroxide (Milk Of Magnesia 30 Ml Oral.Susp) 30 ml PO DAILY PRN PRN Reason: Constipation Nicotine Polacrilex (Nicotine Polacrilex 2 Mg Gum) 2 mg BUCCAL Q2H PRN PRN Reason: Nicotine Cravings Olanzapine (Olanzapine Odt 10 Mg Tab.Rapdis) 10 mg TRANSLINGU Q6H PRN PRN Reason: agitation Last Admin: 02/01/23 14:24 Dose: 10 mg Trazodone HCl (Trazodone Hcl 50 Mg Tablet) 50 mg PO BEDTIME MRX1 PRN PRN Reason: insomnia Last Admin: 01/29/23 21:48 Dose: 50 mg Allergies Allergies Allergy/AdvReac Type Severity Reaction Status Date / Time No Known Allergies Allergy Unverified 01/21/23 12:49 Assessment & Plan Assessment & Plan (1) Schizophrenia, paranoid: Status: Acute Code(s): F20.0 - Paranoid schizophrenia Plan Patient is a 32 year old male with hx of schizophrenia who presented to the ER via EMS d/t suicidal ideation with plans to drown himself secondary to homelessness and medication noncompliance for the past two months. Plan: 01/24: geodon changed to Q5pm for absorption. T/C adding second dose of 40 mg to AM. irritable, labile, threatening suicide if he is not provided housing by the hospital. 01/25: geodon dosing changed to BIDWM. less labile today, only somewhat sullen and hostile in attitude. 01/26- consider increasing geodon or switching antipsychotic 01/27 continue tx. 01/28 continue geodon, but will change prn olanzapine to haldol. Will discussed switching geodon to haldol, which he has been on in the past. 01/29 d/c geodon. start haldol 5mg po BID 01/30 increase haldol 10mg po BID. cogentin 1mg po BID. 01/31: Continue current management and treatment plan. 02/01: Continue current management and treatment plan. 02/02: remains very delusional and paranoid. wonder about cheeking; start zydis tonight. 3-day up weds. Reason for continued inpatient stay Substantial Risk for: inability to function and rapid decompensation Time Spent With Patient Time: Total time managing care of this patient today __25__ minutes.
[2023-02-02] MEDS: OLANZapine ODT 10 MG TAB.RAPDIS TRANSLINGU ×3 (15:50→21:45)
[2023-02-02 19:48] VITALS: BP 103/52; PULSE 89; RESP 16; TEMP 36.7; O2SAT 94
[2023-02-02] MEDS: traZODone HCL 50 MG TABLET PO (21:45)
[2023-02-03 07:10] VITALS: BP 108/57; PULSE 76; RESP 16; TEMP 36.6; O2SAT 95
[2023-02-03] MEDS: Benztropine Mesylate 1 MG TABLET PO ×2 (08:29→20:31)
--- NOTE | 2023-02-03 11:07 | PM.PSYDC ---
DS: Providers Provider Date of Service: 02/03/23 Date of admission: 01/22/23 15:42 Primary care physician: Unknown Physician DS: Diagnosis Discharge Diagnosis (1) Schizophrenia, paranoid: Status: Acute DS: Medications Discharge Medications Home Medications: Home Medications Medication Instructions Recorded Confirmed trazodone 50 mg tablet 50 - 100 mg PO BEDTIME PRN insomnia 01/21/23 01/21/23 Previous Rx's Medication Instructions Recorded olanzapine 10 mg tablet (Zyprexa) 10 mg PO BEDTIME 30 days #30 tabs 02/03/23 Mental Status Exam Mental Status Exam Narrative: Pt is alert and oriented; behavior is cooperative and calm; dressed in street clothes; eye contact appropriate; Speech is normal rate, volume and prosody and not pressured; no psychomotor agitation/retardation present; thought process is linear; Thought content is regarding discharge, appears substantially less paranoid/delusional than yesterday. Patients insight and judgment are impaired. DS: Summary Hospital Course Hospital Course: per 01/23 admission note: Patient is a 32 year old male with hx of schizophrenia who presented to the ER via EMS d/t suicidal ideation with plans to drown himself secondary to homelessness and medication noncompliance for the past two months. Per crisis report, pt has been reported as a missing person by his family for over a week; he was found outside of [facility] by police and EMS, living on the streets. Prior he was living with his mother and brother in [place], [place] but was asked to leave. He reported auditory hallucinations that yell at me and visual hallucinations of shadowy figures . Pt reported he had an argument with his family and he was told to leave the home. He reports receiving treatment at the [facility] but has not been medication compliant for the past two months. During admission assessment, patient presents calm, paranoid, and delusional. Patient reports feeling alright today. Pt stated, I don't want to drown myself anymore. I'm tired of getting kicked out of places. The shelters don't want me in there because of what my family did; I don't know what they did but that's why. I also trespassed a base by accident and now I'm getting an attitude from everyone and they say I'm a terrorist. I'm sure everyone knows me now . Patient reports he only had suicidal thoughts because I don't have anywhere to go . Reports smoking marijuana; denies any other substance use. UTOX positive for marijuana. Pt reports visual hallucinations of ghosts but they don't bother me . Denies SI/HI/AH. Patient reports he would like help starting his medications again and placement. Past Psychiatric History: Therapist-Skylar ([facility] ) Provider- Amita ([facility]) Medical Evaluation Reviewed: Yes PMFSH Medical History Depression No known health problems Schizophrenia Surgical History H/O wrist surgery Family History: unknown Social History: homeless, disabled, single, no children. Substance History: marijuana. Trauma History: unknown Precis: Patient is a 32 year old male with hx of schizophrenia who presented to the ER via EMS d/t suicidal ideation with plans to drown himself secondary to homelessness and medication noncompliance for the past two months. 01/23: Pt signed 3 day. Continue ziprasidone 40mg PO bedtime. Obtain collateral 01/24: geodon changed to Q5pm for absorption. T/C adding second dose of 40 mg to AM. irritable, labile, threatening suicide if he is not provided housing by the hospital. 01/25: geodon dosing changed to BIDWM. less labile today, only somewhat sullen and hostile in attitude. 01/26- consider increasing geodon or switching antipsychotic 01/27 continue tx. 01/28 continue geodon, but will change prn olanzapine to haldol. Will discussed switching geodon to haldol, which he has been on in the past. 01/29 d/c geodon. start haldol 5mg po BID 01/30 increase haldol 10mg po BID. cogentin 1mg po BID. 01/31: Continue current management and treatment plan. 02/01: Continue current management and treatment plan. 02/02: remains very delusional and paranoid. wonder about cheeking; start zydis tonight. 3-day up . 02/03: appears more calm today, less paranoid. reports tolerating the zydis well. 3-day up tomorrow, discharge as pt does not meet criteria for continued involuntary hold. meds reviewed, reconciled, prescribed. 02/04: declined to retract 3-day notice, discharged as per plan. Time Spent with Patient Time attestation: Total time managing care of this patient today ____ minutes. Time spent: Greater than 30 minutes Discharge Plan Discharge Anticipated Discharge Date/Time: 02/04/23 10:00 Patient Disposition: [facility] Discharge Diagnosis: Schizophrenia, Paranoid Type Referrals: [facility] [Provider Group] - 1 Week Discharge Medications: New olanzapine [Zyprexa] 10 mg tablet 10 mg PO BEDTIME 30 Days Qty: 30 0RF Continued trazodone 50 mg tablet 50 - 100 mg PO BEDTIME PRN (Reason: insomnia) Discontinued nicotine (polacrilex) 2 mg gum 2 mg PO Q2H PRN (Reason: Nicotine Cravings) ziprasidone HCl 40 mg capsule 40 mg PO QPM Discharge Orders: Discharge Order (Routine); Ordered 02/04/23 Ordered By: Francis Hooker Diet: Advance to usual diet Activity on Discharge: As tolerated Stand Alone Forms: Patient Portal Discharge page Care Plan Goals: remain safe and stable in the outpatient treatment setting Health Concerns: none Plan of Treatment: take medications as prescribed, attend appointments as scheduled Assessment: not at imminent risk of harm to self or others
[2023-02-03 18:00] VITALS: BP 116/60; PULSE 80; RESP 16; TEMP 36.4; O2SAT 96
[2023-02-03] MEDS: OLANZapine ODT 10 MG TAB.RAPDIS TRANSLINGU (20:31)
[2023-02-04 08:56] VITALS: BP 112/78; PULSE 85; TEMP 36.6; O2SAT 96
[2023-02-04] MEDS: HaloperidoL 5 MG TABLET 10 MG PO (09:24)
[2023-02-04] MEDS: Benztropine Mesylate 1 MG TABLET PO (09:24)
== END 2023-02-04 10:53 | disposition home or self-care (01) | DRG 885 ==
LOC: HO.ED 22:44 → HO.PADLT16 01-22 15:47
PROVIDERS: Student in an Organized Health Care Education/Training Program; Admitting Provider Psychiatry & Neurology Psychiatry; Emergency Provider Emergency Medicine; Visit Provider Psychiatry & Neurology Psychiatry
DX: F20.0 Paranoid schizophrenia (principal); R45.851 Suicidal ideations; Z59.00 Homelessness unspecified; Z20.822 Contact with and (suspected) exposure to COVID-19; Z79.899 Other long term (current) drug therapy; Z91.148 Patient's other noncompliance with medication regimen for other reason
CPT/HCPCS: 36415; 80053; 80061; 80307; 81001; 85025; 87502; 87635; 93005; 99285; S9485

== ENCOUNTER → 2023-01-22 15:42 | Outpatient (BNV) | payer OTHER, SELFPAY | PROVIDERS: Admitting Provider Psychiatry & Neurology Psychiatry; Emergency Provider Emergency Medicine; Visit Provider Psychiatry & Neurology Psychiatry | DX: F20.0 Paranoid schizophrenia (principal) | CPT/HCPCS: 99231; 99232; 99239 ==

== ENCOUNTER → 2023-01-22 15:42 | Outpatient (BNV) | payer OTHER, SELFPAY | PROVIDERS: Admitting Provider Psychiatry & Neurology Psychiatry; Emergency Provider Emergency Medicine; Visit Provider Psychiatry & Neurology Psychiatry | DX: F20.0 Paranoid schizophrenia (principal) | CPT/HCPCS: 90792 ==

== ENCOUNTER 2023-02-19 18:59 | Emergency (ER) | payer OTHER, SELFPAY ==
--- OUTSIDE RECORDS SUMMARY | 2023-02-20 06:42 | XMS_ITS | Continuity of Care Document ---
Author Name Unknown Organization [facility] Address [address] [place] [id number]- Care Team Providers Care Surgical Brace Maker Name Role Phone Mariam PERRY, Sachin Elizabeth Primary Care Physician Encounter [facility] Date(s): 10/01/22 - 01/29/23 [facility] [address] [place] [id number]- Attending Physician: Daniel Hardy MD Admitting Physician: Daniel Hardy MD Referring Physician: Davina PERRY, Betzaida Allergies, Adverse Reactions, Alerts No Known Allergies Immunizations Given and Recorded Vaccine Date Status Refusal Reason tetanus/diphtheria/pertussis, acel(Tdap) 1 04/22/21 Given influenza virus vaccine, inactivated 04/02/21 Damon rded influenza virus vaccine, inactivated 12/07/19 Give n SARS-CoV-2 (COVID-19) mRNA-1273 vaccine 04/02/21 R ecorded pneumococcal 23-valent vaccine 12/21/18 Given 1Result Comment: [id number] Medications benztropine 1 mg oral tablet Refills 0, Maintenance, 10/21/22 14:01:00 EDT, Partial fill upon patient request if the prescription is for a schedule II opioid drug. Start Date: 10/21/22 Status: Ordered haloperidol 10 mg oral tablet 1, tablet, By Mouth, 2 times a day, # 60 tablet, Refills 0, Maintenance, 03/21/22 16:46:00 EST, Route to Pharmacy Electronically, [id number], 165, cm, 01/24/22 12:54:00 EST, Height, 69.5, kg, 02/18/21 14:03:00 EST, Dry Weight Start Date: 03/21/22 Stop Date: 04/20/22 Status: Ordered traZODone 50 mg oral tablet 50 mg, 1, tablet, By Mouth, Daily at bedtime, # 30 tablet, Refills 2, Tot. Refills 2, Maintenance, 07/15/22 8:27:00 EDT, Route to Pharmacy Electronically, [facility]/pharmacy #[id number], Partial fill upon patient request if the prescription is for a schedule II o... Start Date: 07/15/22 Status: Ordered Problem List Condition Confirmation Course Effective Dates Status H ealth Status Informant Abnormal liver function Confirmed Active Bipolar disorder Confirmed Active Chronic hepatitis C Confirmed Active Extrapyramidal symptom Confirmed Active MYNOR (generalized anxiety disorder) Confirmed Active Insomnia Confirmed Active MDD (major depressive disorder), recurrent, severe, with psychosis Confirmed Active Unspecified schizophrenia spectrum and other psychotic disorder Confirmed Active Seasonal affective disorder Confirmed Active Seizure disorder Confirmed Active Severe major depression Confirmed Active Severe obesity (BMI 35.0-39.9) with comorbidity Confirmed Active Social History Social History Type Response Tobacco Use: 4 or less cigar ettes(less than 1/4 pack)/day in last 30 days. Other: Reports 1 cig per day. Sex Patient Care team information Care Team Personnel Name: Laina Castillo RN Position: [facility] RN Member Role: Primary Care Nurse Name: Chanel Sewell Position: [facility] RN Member Role: Primary Care Nurse Name: Ferdinand Parisi RN Position: [facility] RN Member Role: Primary Care Nurse Name: Desmond Almeida RN Position: [facility] SN RN Member Role: Primary Care Nurse Name: Sachin Becerra MD Position: [facility] Physician - Primary Care Member Role: PCP Address: Address: [address] [place] [address] [place] [address]- Name: Sarika Aguilera RN Position: [facility] RN Member Role: Primary Care Nurse Care Team Related Persons Name: DECLINED, DECLINED Name: LARISSA LORENZO Name: ANDREY REED Address: [address] [place] [address]
--- OUTSIDE RECORDS SUMMARY | 2023-02-20 06:42 | XMS_ITS | Continuity of Care Document ---
Author Name Unknown Organization [facility] Address [address] [place] [id number]- Care Team Providers Care Continuity Coordinator Name Role Phone Mariam PERRY, Sachin Elizabeth Primary Care Physician [phone] Encounter [facility] Date(s): 12/30/22 - 01/29/23 [facility] [address] [place] [address]- Attending Physician: Carlos Bhandari Admitting Physician: AdmtrCarlos Referring Physician: Admtr [id number] Allergies, Adverse Reactions, Alerts No Known Allergies Immunizations Given and Recorded Vaccine Date Status Refusal Reason tetanus/diphtheria/pertussis, acel(Tdap) 1 04/22/21 Given influenza virus vaccine, inactivated 04/02/21 Damon rded influenza virus vaccine, inactivated 12/07/19 Give n SARS-CoV-2 (COVID-19) mRNA-1273 vaccine 04/02/21 R ecorded pneumococcal 23-valent vaccine 12/21/18 Given 1Result Comment: [id number] Medications benztropine 1 mg oral tablet Refills 0, Maintenance, 10/21/22 14:01:00 EDT, Partial fill upon patient request if the prescription is for a schedule II opioid drug. Start Date: 10/21/22 Status: Ordered haloperidol 10 mg oral tablet 1, tablet, By Mouth, 2 times a day, # 60 tablet, Refills 0, Maintenance, 03/21/22 16:46:00 EST, Route to Pharmacy Electronically, [id number], 165, cm, 01/24/22 12:54:00 EST, Height, 69.5, kg, 02/18/21 14:03:00 EST, Dry Weight Start Date: 03/21/22 Stop Date: 04/20/22 Status: Ordered traZODone 50 mg oral tablet 50 mg, 1, tablet, By Mouth, Daily at bedtime, # 30 tablet, Refills 2, Tot. Refills 2, Maintenance, 07/15/22 8:27:00 EDT, Route to Pharmacy Electronically, [facility]/pharmacy #[id number], Partial fill upon patient request if the [...] Personnel Name: Laina Castillo RN Position: [facility] RN Member Role: Primary Care Nurse Name: Chanel Sewell Position: [facility] RN Member Role: Primary Care Nurse Name: Ferdinand Parisi RN Position: [facility] RN Member Role: Primary Care Nurse Name: Desmond Almeida RN Position: [facility] SN RN Member Role: Primary Care Nurse Name: Sachin Becerra MD Position: [facility] Physician - Primary Care Member Role: PCP Address: Address: [address] [place] [address] [place] [address]- Name: Sarika Aguilera RN Position: [facility] RN Member Role: Primary Care Nurse Care Team Related Persons Name: DECLINED, DECLINED Name: LARISSA LORENZO Name: ANDREY REED Address: [address] [place] [address]
== END 2023-02-20 06:41 | disposition left against medical advice (07) ==
LOC: HO.ED 02-20 06:40
DX: M25.531 Pain in right wrist (principal); Z53.21 Procedure and treatment not carried out due to patient leaving prior to being seen by health care provider

== ENCOUNTER 2023-03-08 20:30 | Emergency (ER) | payer OTHER, SELFPAY ==
--- NOTE | ~2023-03-08 | XR_ITS ---
EXAMINATION: XR CHEST CLINICAL INFORMATION: Chest pain. COMPARISON: None available. TECHNIQUE: 2 views of the chest were obtained. FINDINGS: No significant abnormality is noted involving the heart, lungs, mediastinum, bony thorax or soft tissues. XR/XR chest 2V IMPRESSION: Unremarkable examination.
--- NOTE | 2023-03-08 20:32 | ECG_ITS ---
Test Reason : CHESTPAIN Blood Pressure : / mmHG Vent. Rate : 074 BPM Atrial Rate : 074 BPM P-R Int : 168 ms QRS Dur : 092 ms QT Int : 362 ms P-R-T Axes : 041 014 006 degrees QTc Int : 401 ms Normal sinus rhythm Normal ECG When compared with ECG of 22-JAN-2023 11:51, No significant change was found Referred By: Generic ED Physician Electronically Signed By:DECLAN NORTH MD
[2023-03-08 20:35] VITALS: BP 134/86; PULSE 84; RESP 18; TEMP 37.3; O2SAT 99; BMI 35.6
--- NOTE | 2023-03-08 20:52 | MHC.EDTECH ---
Patient brought into triage area,EKG taken and labs were collected and sent to lab
[2023-03-08 20:56] LABS: MANUAL DIFF FLAG NO
[2023-03-08 20:59] LABS: Basophils Percent Auto 0.3 % (0-2); Eosinophils Absolute Auto 0.2 X10*3/uL (0.0-0.4); Eosinophils Percent Auto 2.6 % (0-4); Hematocrit 40.5 % (42.0-52.0); Hemoglobin 12.7 g/dl (14.0-18.0); Imm Gran Abs Auto 0.03 X10*3/uL (0.00-0.03); Imm Gran Pct Auto 0.3 % (0.0-0.4); Lymphocytes Absolute Auto 3.2 X10*3/uL (1.2-4.9); Lymphocytes Percent Auto 34.5 % (20-40); Mean Corpuscular HGB Conc 31.4 g/dl (31.0-36.0); Mean Corpuscular Hemoglobin 27.1 pg (27.0-33.0); Mean Corpuscular Volume 86.5 fL (80.0-98.0); Mean Platelet Volume 9.9 fL (9.4-12.4); Monocytes Percent Auto 10.3 % (2-11); Neutrophils Absolute Auto 4.8 x10*3/uL (2.0-8.3); Platelet Count 292 X10*3/uL (160-400); Red Blood Count 4.68 X10*6/uL (4.60-5.80); Red Cell Distribution Width 14.2 % (11.0-16.0); White Blood Count 9.3 X10*3/uL (4.8-10.8)
--- NOTE | 2023-03-08 21:11 | MHC.EDTECH ---
Urine sample collected and sent to lab.
[2023-03-08 21:12] LABS: Alanine Aminotransferase 9 U/L (0-40); Albumin Level 4.4 g/dL (3.5-5.0); Alkaline Phosphatase 69 U/L (39-117); Anion Gap 13 (12-20); Aspartate Amino Transferase 14 U/L (5-37); Bilirubin Total 0.2 mg/dL (0.0-1.0); Blood Urea Nitrogen 15 mg/dL (9-16); Calcium 9.6 mg/dL (8.4-10.2); Carbon Dioxide 26 mmol/L (22-29); Chloride 111 mmol/L (96-108); Creatinine Clr Calc Pharmacy 101.3; Estimated Glomerular Filt Rate > 60; Glucose Random 89 mg/dL (60-115); Sodium 146 mmol/L (135-145); Total Protein 8.3 g/dL (6.5-8.0)
[2023-03-08 21:21] LABS: Appearance Urine Clear; Color Urine Yellow; Glucose Urine UA Negative (Negative); Leukocyte Esterase Urine Negative (Negative); Nitrite Urine Negative (Negative); Specific Gravity - Urine >= 1.030 (1.005-1.025); Urine Blood Negative (Negative); Urine Ketones Trace mg/dL (Negative); Urine Protein Negative (Neg-Trace)
[2023-03-08 21:21] LABS: Troponin-I High Sensitivity < 2.7 ng/L (<3.5-35.0)
[2023-03-08 23:37] VITALS: BP 125/68; PULSE 61; RESP 16; TEMP 37.2; O2SAT 98
--- NOTE | 2023-03-09 00:07 | ED.CHESTPAIN ---
HPI - Chest Pain General Chief Complaint: Chest Pain Stated Complaint: chest,left arm pain Time Seen by Provider: 03/08/23 23:26 Source: patient Mode of arrival: ambulatory Limitations: no limitations History of Present Illness HPI narrative: Patient history of schizophrenia on Haldol 40 mg daily did not take medicine for last 4 days been feeling more anxious agitated with having chest pain off and on today pain got worse since 17:00 feels sharp pain in the left side of the chest with pain in the veins of the left arm nonsmoker no cocaine use no history of hypertension/ diabetes had similar pain in the past Related Data Home Medications Medication Instructions Recorded Confirmed trazodone 50 mg tablet 50 - 100 mg PO BEDTIME PRN insomnia 01/21/23 01/21/23 Previous Rx's Medication Instructions Recorded olanzapine 10 mg tablet (Zyprexa) 10 mg PO BEDTIME 30 days #30 tabs 02/03/23 benztropine 1 mg tablet 1 mg PO DAILY #30 tabs 02/04/23 haloperidol 10 mg tablet 10 mg PO DAILY #30 tabs 02/04/23 Allergies Allergy/AdvReac Type Severity Reaction Status Date / Time No Known Allergies Allergy Unverified 01/21/23 12:49 Review of Systems Review of Systems: Yes all other systems are reviewed and are negative [facility] Past Medical History Medical History Depression No known health problems Schizophrenia Surgical History H/O wrist surgery Social History Social History Household Members: None Housing: Homeless Patient Tobacco Use Status: Former Tobacco user Substance Use Type: Marijuana Advance Directives: No Advance Directives Information Provided: No service: No Sexual orientation: Straight/Heterosexual Physical Exam Vital Signs: Vital Signs: Last Vital Signs Temp 98.9 F 03/09/23 01:36 Pulse 74 03/09/23 01:36 Resp 16 03/09/23 01:36 BP 116/71 03/09/23 01:36 Pulse Ox 98 03/09/23 01:36 O2 Del Method Room Air 03/09/23 01:36 BMI result Body Mass Index 35.6 Appearance: Alert. Oriented X3. No acute distress. Anxious Eyes: PERRLA, ENT: Pharynx normal. Oral Mucosa moist Neck: Normal inspection. Neck supple. CVS: Normal heart rate and rhythm. Pulses normal. Respiratory: No respiratory distress. Equal air entry bilateral, no wheezing/rales/rhonchi Abdomen: Soft and nontender. Bowel sounds are present, no mass palpable, no CVA tenderness Skin: Skin warm and dry. Normal skin color. Normal skin turgor. Extremities: No lower extremity edema. No calf tenderness Neuro: Oriented X 3. No motor deficit. Medications Administered Discontinued Medications Generic Name Dose Route Start Last Admin Trade Name Freq PRN Reason Stop Dose Admin Lorazepam 2 mg 03/09/23 00:21 03/09/23 01:37 Lorazepam 1 Mg Tablet PO 03/09/23 00:22 2 mg ONCE ONE Administration Medical Decision Making Medical Decision Making [facility] Narrative: Pre schizophrenia of Haldol for 3 4 days comes here with atypical left-sided chest pain likely anxiety EKG without any ischemic changes labs were stable will discharge patient home advised to start on Haldol Differential Diagnosis Differential Diagnoses: The differential diagnosis associated with the presentation includes ACS/anxiety/musculoskeletal Lab Data [facility] Lab Attestation statement: I reviewed the patient's lab results. 03/08/23 20:48 03/08/23 20:48 Labs: Lab Results 03/08/23 03/08/23 Range/Units 20:48 21:10 WBC 9.3 (4.8-10.8) X10*3/uL RBC 4.68 (4.60-5.80) X10*6/uL Hgb 12.7 L (14.0-18.0) g/dl Hct 40.5 L (42.0-52.0) % MCV 86.5 (80.0-98.0) fL MCH 27.1 (27.0-33.0) pg MCHC 31.4 (31.0-36.0) g/dl RDW 14.2 (11.0-16.0) % Plt Count 292 (160-400) X10*3/uL MPV 9.9 (9.4-12.4) fL Immature Gran % (Auto) 0.3 (0.0-0.4) % Neut % (Auto) 52.0 (45-73) % Lymph % (Auto) 34.5 (20-40) % [place] % (Auto) 10.3 (2-11) % Eos % (Auto) 2.6 (0-4) % Baso % (Auto) 0.3 (0-2) % Lymph # (Auto) 3.2 (1.2-4.9) X10*3/uL [place] # (Auto) 1.0 (0.1-1.2) X10*3/uL Eos # (Auto) 0.2 (0.0-0.4) X10*3/uL Baso # (Auto) 0.0 (0.0-0.2) X10*3/uL Abs Immat Gran (auto) 0.03 (0.00-0.03) X10*3/uL Absolute Neuts (auto) 4.8 (2.0-8.3) x10*3/uL Absolute Nucleated RBC 0.000 (0.0-0.012) X10*3/uL Nucleated RBC % (auto) 0.0 (0.0-0.2) /100WBC Sodium 146 H (135-145) mmol/L Potassium 4.0 (3.3-5.1) mmol/L Chloride 111 H (96-108) mmol/L Carbon Dioxide 26 (22-29) mmol/L Anion Gap 13 (12-20) BUN 15 (9-16) mg/dL Creatinine 1.14 (0.5-1.4) mg/dL Estim Creat Clear Calc 101.3 Estimated GFR > 60 Random Glucose 89 (60-115) mg/dL Calcium 9.6 (8.4-10.2) mg/dL Total Bilirubin 0.2 (0.0-1.0) mg/dL AST 14 (5-37) U/L ALT 9 (0-40) U/L Alkaline Phosphatase 69 (39-117) U/L Troponin I High Sens < 2.7 (<3.5-35.0) ng/L Total Protein 8.3 H (6.5-8.0) g/dL Albumin 4.4 (3.5-5.0) g/dL Urine Color Yellow Urine Appearance Clear Urine pH 5.0 (5.0-9.0) Ur Specific [place] >= 1.030 H (1.005-1.025) Urine Protein Negative (Neg-Trace) mg/dL Urine Glucose (UA) Negative (Negative) mg/dL Urine Ketones Trace (Negative) mg/dL Urine Blood Negative (Negative) Urine Nitrite Negative (Negative) Ur Leukocyte Esterase Negative (Negative) Independent Interpretation I performed an independent interpretation of an: EKG and Plain X-Ray Interpretation: Normal sinus rhythm heart rate 74 beats per minute normal interval normal axis no acute ST T wave changes no acute ischemia impression normal EKG Radiology Impression Discussion of test interpretation with radiology: I have reviewed the radiologist's reading. Discharge Plan Discharge Clinical Impression: Atypical chest pain, Schizophrenia, paranoid Patient Disposition: Home, Self-Care Instructions: Schizophrenia (ED), Noncardiac Chest Pain (ED) Additional Instructions: Take your medication as prescribed every day for your schizophrenia The chest pain is not from the heart Prescriptions: No Action trazodone 50 mg tablet 50 - 100 mg PO BEDTIME PRN (Reason: insomnia) olanzapine [Zyprexa] 10 mg tablet 10 mg PO BEDTIME 30 Days Qty: 30 0RF haloperidol 10 mg tablet 10 mg PO DAILY Qty: 30 0RF benztropine 1 mg tablet 1 mg PO DAILY Qty: 30 0RF Interventions: ED Discharge Assessment Last Done: 03/09/23 01:41 Discharge Date/Time: 03/09/23 01:42
[2023-03-09 01:36] VITALS: BP 116/71; PULSE 74; RESP 16; TEMP 37.2; O2SAT 98
[2023-03-09] MEDS: LORazepam 1 MG TABLET 2 MG PO (01:37)
--- NOTE | 2023-03-09 01:41 | PC.NURSE ---
pt medicated per may for discharge, pt has ride home provided.
== END 2023-03-09 01:42 | disposition home or self-care (01) ==
PROVIDERS: Emergency Provider Internal Medicine
DX: R07.89 Other chest pain (principal); F20.0 Paranoid schizophrenia
CPT/HCPCS: 36415; 71046; 80053; 81003; 84484; 85025; 93005; 99283; 99284

== ENCOUNTER → 2023-03-08 20:32 | Outpatient (BNV) | payer OTHER, SELFPAY | PROVIDERS: Emergency Provider Internal Medicine; Visit Provider Internal Medicine Cardiovascular Disease | DX: R07.9 Chest pain, unspecified (principal) | CPT/HCPCS: 93010 ==

== ENCOUNTER 2023-04-04 20:58 | Inpatient (IN) | payer OTHER, SELFPAY ==
[2023-04-04 21:02] VITALS: BP 136/86; PULSE 79; RESP 20; TEMP 37.1; O2SAT 98
[2023-04-04 21:05] VITALS: BMI 33.9
--- NOTE | 2023-04-04 21:26 | ED_ITS ---
HPI - Psych General Chief Complaint: Psychiatric Symptoms Stated Complaint: not taking meds, aggression, thoughts of SI/HI Time Seen by Provider: 04/04/23 21:13 Source: patient and EMS Mode of arrival: EMS Limitations: no limitations History of Present Illness HPI Narrative: This is a 32-year-old male with history of schizophrenia with multiple mental hospitalization presented to the ER via EMS for evaluation of increase auditory hallucination, patient declined using any recreational drug recently last use of marijuana was month ago, patient in antipsychotic medication that he admit he has not compliant with, did not take his medication for the past month, has a vague suicidal feeling because the voices that he hear is aggravating him. Related Data Home Medications Medication Instructions Recorded Confirmed trazodone 50 mg tablet 50 - 100 mg PO BEDTIME PRN insomnia 01/21/23 04/04/23 ziprasidone HCl 40 mg capsule 40 mg PO DAILY 04/04/23 04/04/23 Allergies Allergy/AdvReac Type Severity Reaction Status Date / Time No Known Allergies Allergy Unverified 01/21/23 12:49 Review of Systems 2 Review of Systems: all other systems are reviewed and are negative Constitutional: Reports as per HPI and Reports no additional constitutional complaints Eyes: Reports as per HPI and Reports no additional eye complaints Reports system reviewed and no additional complaints, except as documented Cardiovascular: Reports as per HPI and Reports no additional cardiovascular complaints Respiratory: Reports as per HPI and Reports no additional respiratory complaints Gastrointestinal: Reports as per HPI and Reports no additional gastrointestinal complaints Genitourinary: Reports no additional female genitourinary complaints Musculoskeletal: Reports no additional musculoskeletal complaints Skin/Breast: Reports system reviewed and no additional complaints, except as docu Psychiatric: Reports no additional psychiatric complaints Endocrine: Reports no additional endocrine complaints Hematologic/Lymphatic: Reports no additional hematologic/lymphatic complaints Allergic/Immunologic: Reports no additional allergic/immunologic complaints Reports system reviewed and no additional complaints, except as documented and Reports Abnormal speech present PMFSH Past Medical History Onset Date is defined in the Problem List Problems that require an onset date and time if occurred within 24 hrs of arrival to the ED Aortic Dissection and Rupture; Neurologic impairment; Cardiopulmonary Arrest; Endotracheal Intubation; Insertion or Replacement of Mechanical Circulatory Assist Device Medical History Depression No known health problems Schizophrenia Surgical History H/O wrist surgery Social History Social History Household Members: None Housing: Homeless Patient Tobacco Use Status: Former Tobacco user Substance Use Type: Marijuana Advance Directives: No Advance Directives Information Provided: No service: No Sexual orientation: Straight/Heterosexual Physical Exam 2 Vital Signs: Vital Signs: Last Vital Signs Temp 98.8 F 04/04/23 21:02 Pulse 79 04/04/23 21:02 Resp 20 04/04/23 21:02 BP 136/86 04/04/23 21:02 Pulse Ox 98 04/04/23 21:02 O2 Del Method Room Air 04/04/23 21:02 BMI result Body Mass Index 33.9 Vital signs have been reviewed and appear to be correct. Blood pressure elevated. Heart rate normal. Respiratory rate normal. Temperature normal. Oxygen saturation normal. Appearance: Alert. Oriented X3. No acute distress. Head: Normal external exam. Normocephalic. Atraumatic. No Ech[place]ria signs noted. No raccoon eyes noted Eyes: PERRLA. EOMI. Conjunctiva and sclera normal. Eyelids normal. ENT: TM's Normal. Pharynx normal. Uvula midline. Moist mucous membranes. No trismus noted. No drooling noted. No muffled voice noted. Neck: Normal inspection. Neck supple. FROM. No adenopathy. Thyroid Normal. No meningeal signs. No neck mass noted. CVS: Normal heart rate and rhythm. Heart sound normal. No murmurs noted. Pulses normal throughout. Respiratory: No respiratory distress. Painless inspiration. Breath sounds normal. No wheezes/rales/rhonchi noted. Chest nontender. No accessory muscle usage noted or decreased air movement noted. Abdomen: Soft and nontender. Bowel sounds normal in all 4 quadrants. No distention noted. No organomegaly noted. No visible injury noted. Back: No CVA tenderness. Full range of motion noted. Skin: Skin warm and dry. Normal skin color. Normal skin turgor. No rashes/lesions/lacerations noted. Extremities: No lower extremity edema. Extremities exhibit normal range of motion. Extremities nontender. Neuro: Oriented X 3. Cranial nerve exam: II-XII are grossly intact No motor deficit. No sensory deficit. Reflexes normal Patient Orientation: Person, Place, Time and Situation, okay hygiene and grooming. Fair eye contact, attentive, no tics or tremors. Level of Consciousness: Awake, Appropriate and Alert Patient Behavior: Appropriate, Guarded, Cooperative and Anxious Mood Description: Constricted, Blunted and Apprehensive Affect Description: Constricted, Blunted and Apprehensive Patient Cognition Impaired: No Ability to Follow Directions: Excellent Speech Pattern: Clear, Appropriate and Spontaneous Speech, nonpressured, spontaneous with regular rate and rhythm, normal volume and prosody. No dysarthria. Memory Description: Intact, Immediate Intact and Short Term Intact Hallucinations: auditory hallucination is present Delusions: Not Present Thought Process: impaired Thought Content: positive for Intact, vague Suicidal Ideation, denies Homicidal Ideation. Depressive Symptoms: present. Judgement and Insight: Limited but adequate. Course Reevaluation(s) Reevaluation #1: medically cleared, labs are unremarkableExcept for slight elevation of creatinine patient will be offered oral hydration, await for care team, will start physician observation. Time: 23:00 Medications Administered Discontinued Medications Generic Name Dose Route Start Last Admin Trade Name Freq PRN Reason Stop Dose Admin Bisacodyl 10 mg 04/04/23 21:17 04/04/23 21:24 Bisacodyl 10 Mg Supp.Rect LA 04/04/23 21:18 Not Given ONCE ONE Lorazepam 1 mg 04/04/23 21:26 04/04/23 21:45 Lorazepam 1 Mg Tablet PO 04/04/23 21:27 1 mg ONCE ONE Administration Medical Decision Making Differential Diagnosis Differential Diagnoses: The differential diagnosis associated with the presentation includes ( SI, acute psychosis, deviation due to medical reason, medical clearance, substance abuse, severe anemia, UTI.) Admission/Observation Consideration of admission/observation: Escalation of care including admission/observation considered Lab Data MDM Lab Attestation statement: I reviewed the patient's lab results. 04/04/23 22:33 04/04/23 22:33 Labs: Lab Results 04/04/23 Range/Units 22:33 WBC 8.8 (4.8-10.8) X10*3/uL RBC 5.12 (4.60-5.80) X10*6/uL Hgb 13.9 L (14.0-18.0) g/dl Hct 43.8 (42.0-52.0) % MCV 85.5 (80.0-98.0) fL MCH 27.1 (27.0-33.0) pg MCHC 31.7 (31.0-36.0) g/dl RDW 13.4 (11.0-16.0) % Plt Count 257 (160-400) X10*3/uL MPV 10.1 (9.4-12.4) fL Immature Gran % (Auto) 0.2 (0.0-0.4) % Neut % (Auto) 49.7 (45-73) % Lymph % (Auto) 36.4 (20-40) % [place] % (Auto) 8.9 (2-11) % Eos % (Auto) 4.5 H (0-4) % Baso % (Auto) 0.3 (0-2) % Lymph # (Auto) 3.2 (1.2-4.9) X10*3/uL [place] # (Auto) 0.8 (0.1-1.2) X10*3/uL Eos # (Auto) 0.4 (0.0-0.4) X10*3/uL Baso # (Auto) 0.0 (0.0-0.2) X10*3/uL Abs Immat Gran (auto) 0.02 (0.00-0.03) X10*3/uL Absolute Neuts (auto) 4.4 (2.0-8.3) x10*3/uL Absolute Nucleated RBC 0.000 (0.0-0.012) X10*3/uL Nucleated RBC % (auto) 0.0 (0.0-0.2) /100WBC Sodium 143 (135-145) mmol/L Potassium 4.4 (3.3-5.1) mmol/L Chloride 106 (96-108) mmol/L Carbon Dioxide 28 (22-29) mmol/L Anion Gap 13 (12-20) BUN 14 (9-16) mg/dL Creatinine 1.67 H (0.5-1.4) mg/dL Estim Creat Clear Calc 69.2 Estimated GFR 48 Random Glucose 121 H (60-115) mg/dL Calcium 9.4 (8.4-10.2) mg/dL Total Bilirubin 0.2 (0.0-1.0) mg/dL AST 13 (5-37) U/L ALT 10 (0-40) U/L Alkaline Phosphatase 72 (39-117) U/L Total Protein 8.1 H (6.5-8.0) g/dL Albumin 4.4 (3.5-5.0) g/dL Urine Opiates Screen Not Detected (Not Detect) Urine Fentanyl Screen Not Detected (Not Detect) Ur Barbiturates Screen Not Detected (Not Detect) Ur Phencyclidine Scrn Not Detected (Not Detect) Ur Amphetamines Screen Not Detected (Not Detect) U Benzodiazepines Scrn Not Detected (Not Detect) Urine Cocaine Screen Not Detected (Not Detect) U Marijuana (THC) Screen Not Detected (Not Detect) Ethyl Alcohol < 10 mg/dL Chronic Conditions Patient?s care impacted by: Other ( Schizophrenia) Discharge Plan Discharge Clinical Impression: Schizophrenia, paranoid, Acute psychosis Patient Disposition: Still a Patient Prescriptions: No Action trazodone 50 mg tablet 50 - 100 mg PO BEDTIME PRN (Reason: insomnia) ziprasidone HCl 40 mg capsule 40 mg PO DAILY Interventions: Schurz-Suicide Risk Severity Scale Last Done: 04/04/23 21:10
[2023-04-04] MEDS: LORazepam 1 MG TABLET PO (21:45)
[2023-04-04 22:38] LABS: MANUAL DIFF FLAG NO
[2023-04-04 22:40] LABS: Basophils Percent Auto 0.3 % (0-2); Eosinophils Absolute Auto 0.4 X10*3/uL (0.0-0.4); Eosinophils Percent Auto 4.5 % (0-4); Hematocrit 43.8 % (42.0-52.0); Hemoglobin 13.9 g/dl (14.0-18.0); Imm Gran Abs Auto 0.02 X10*3/uL (0.00-0.03); Imm Gran Pct Auto 0.2 % (0.0-0.4); Lymphocytes Absolute Auto 3.2 X10*3/uL (1.2-4.9); Lymphocytes Percent Auto 36.4 % (20-40); Mean Corpuscular HGB Conc 31.7 g/dl (31.0-36.0); Mean Corpuscular Hemoglobin 27.1 pg (27.0-33.0); Mean Corpuscular Volume 85.5 fL (80.0-98.0); Mean Platelet Volume 10.1 fL (9.4-12.4); Monocytes Absolute Auto 0.8 X10*3/uL (0.1-1.2); Monocytes Percent Auto 8.9 % (2-11); Neutrophils Absolute Auto 4.4 x10*3/uL (2.0-8.3); Neutrophils Percent Auto 49.7 % (45-73); Platelet Count 257 X10*3/uL (160-400); Red Blood Count 5.12 X10*6/uL (4.60-5.80); Red Cell Distribution Width 13.4 % (11.0-16.0); White Blood Count 8.8 X10*3/uL (4.8-10.8)
[2023-04-04 22:48] LABS: Amphetamine Screen Urine Not Detected (Not Detect); Barbiturates, Urine Not Detected (Not Detect); Benzodiazepines Screen Urine Not Detected (Not Detect); Cannabinoid Screen Urine Not Detected (Not Detect); Cocaine Screen Urine Not Detected (Not Detect); Fentanyl, urine Not Detected (Not Detect); Opiate Screen Urine Not Detected (Not Detect); Phencyclidine Screen Urine Not Detected (Not Detect)
[2023-04-04 22:51] LABS: Ethanol < 10 mg/dL
[2023-04-04 22:53] LABS: Alanine Aminotransferase 10 U/L (0-40); Albumin Level 4.4 g/dL (3.5-5.0); Alkaline Phosphatase 72 U/L (39-117); Anion Gap 13 (12-20); Aspartate Amino Transferase 13 U/L (5-37); Bilirubin Total 0.2 mg/dL (0.0-1.0); Blood Urea Nitrogen 14 mg/dL (9-16); Calcium 9.4 mg/dL (8.4-10.2); Carbon Dioxide 28 mmol/L (22-29); Chloride 106 mmol/L (96-108); Creatinine Clr Calc Pharmacy 69.2; Estimated Glomerular Filt Rate 48; Glucose Random 121 mg/dL (60-115); Potassium 4.4 mmol/L (3.3-5.1); Sodium 143 mmol/L (135-145); Total Protein 8.1 g/dL (6.5-8.0)
--- NOTE | 2023-04-04 23:56 | PC.NURSE ---
Took report from off-going RN. Pt is a 32 y/o male here for auditory hallucinations. Pt is cooperative and easily arousable with verbal stimuli. Changes position in bed as desired and verbalized needs. Will continue to monitor and conduct regular safety checks.
--- NOTE | 2023-04-05 03:10 | PC.NURSE ---
Pt is sleeping upright in a chair behind nurses station, appears comfortable. No acute distress noted. Pt changes positions as desired. Easily arousable with verbal stimuli. Pending evaluation with care team in the AM. Will continue to monitor and note any changes. Regular safety checks will continue.
--- NOTE | 2023-04-05 05:54 | PC.NURSE ---
Pt is sleeping in a chair behind nurses station, appears comfortable. Changes positions independently as desired. Easily arousable with verbal stimuli. Will continue to monitor and note any changes. Regular safety checks will continue. Care team evaluation is pending.
[2023-04-05 06:00] VITALS: BP 109/64; PULSE 66; RESP 12; O2SAT 96
[2023-04-05] MEDS: Ziprasidone 40 MG CAPSULE PO (07:57)
[2023-04-05] MEDS: LORazepam 1 MG TABLET PO (07:57)
--- NOTE | 2023-04-05 08:01 | PHA.MEDREC ---
Pharmacy Consult ? Medication Reconciliation Pharmacy has completed the medication reconciliation. Reviewed med rec done by nursing
--- NOTE | 2023-04-05 08:03 | PC.NURSE ---
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 PT BECOMING INCREASINGLY AGITATED, UNABLE TO FOLLOW REDIRECTION IN CONVERSATION. NOTIFIED, PT MEDICATED ORDERED, STATES BZO WAS SOMEWHAT EFFECTIVE FOR HIM LAST NIGHT.
--- NOTE | 2023-04-05 09:31 | ECG_ITS ---
Test Reason : QTC INTERVAL Blood Pressure : / mmHG Vent. Rate : 063 BPM Atrial Rate : 063 BPM P-R Int : 186 ms QRS Dur : 092 ms QT Int : 392 ms P-R-T Axes : 009 011 006 degrees QTc Int : 401 ms Normal sinus rhythm with sinus arrhythmia Normal ECG When compared with ECG of 08-MAR-2023 20:38, No significant change was found Referred By: Generic ED Physician Electronically Signed By:Jorge Mcclendon
[2023-04-05 10:02] LABS: Appearance Urine Clear; Color Urine Yellow; Glucose Urine UA Negative (Negative); Leukocyte Esterase Urine Negative (Negative); Nitrite Urine Negative (Negative); PH 5.5 (5.0-9.0); Specific Gravity - Urine >= 1.030 (1.005-1.025); Urine Blood Negative (Negative); Urine Ketones Trace mg/dL (Negative); Urine Protein Negative (Neg-Trace)
[2023-04-05 10:16] LABS: COVID-19 Test Negative (Negative); IDNOW Serial# 152EDE1D
[2023-04-05 18:30] VITALS: BP 131/80; PULSE 71; RESP 18; TEMP 36.6; O2SAT 98
--- NOTE | 2023-04-05 18:54 | PC.NURSE ---
BELONGINGS IN LOCKER #8
[2023-04-05] MEDS: LORazepam 1 MG TABLET 2 MG PO (19:10)
[2023-04-06 06:25] VITALS: BP 121/69; PULSE 58; RESP 14; TEMP 36.9; O2SAT 99
[2023-04-06] MEDS: LORazepam 1 MG TABLET PO ×2 (08:24→20:49)
[2023-04-06] MEDS: Acetaminophen 325 MG TABLET 975 MG PO (09:46)
--- NOTE | 2023-04-06 11:06 | PC.NURSE ---
Assumed care of patient at 1100, patient is pacing around BH pod, appearing to respond to internal stimuli, occasionally yelling out in response to conversations being had on the side by staff and other patients. Overall, patient appears tense, unwilling to participate in direct conversation with this RN. Respirations even and unlabored, no apparent distress at this time
[2023-04-06] MEDS: HaloperidoL 5 MG TABLET 10 MG PO (11:50)
[2023-04-06] MEDS: LORazepam 1 MG TABLET 2 MG PO (11:50)
[2023-04-06 14:00] VITALS: RESP 16
--- NOTE | 2023-04-06 14:10 | PC.NURSE ---
report given to Jamaal GUERRERO
--- NOTE | 2023-04-06 14:54 | MHC.CARE ---
Lauren from [facility] approved authorization, approved for today- (last covered day & review day)
[2023-04-06 18:00] VITALS: BP 124/71; PULSE 88; RESP 18; TEMP 36.6; O2SAT 100
[2023-04-06] MEDS: Ziprasidone 40 MG CAPSULE PO (18:41)
[2023-04-06] MEDS: OLANZapine 5 MG TABLET PO (20:49)
[2023-04-06] MEDS: traZODone HCL 50 MG TABLET PO (20:49)
--- NOTE | 2023-04-06 22:18 | PC.ADMIT ---
Tank is a 32 year old, , Lao speaking male who presented to the ED via ambulance on 04/04/23 from his home for auditory hallucination and SI with a plan to hang himself. Pt reported that he started hearing these voices screaming at him ever since he used a vape about a month ago and yesterday it was so intense that it made him want to hang himself to escape from the voices. Pt has a hx of schizophrenia. Pt reported that he has been hearing auditory hallucinations for ?a while? but they started after he smoked a vape around a month ago. Pt could recognize some of the voices and he stated that ?they know what I?m going to say.? For example, pt said he tries to be like a ?zombie? to freeze and block out the voices, but the voices tell him to not be a zombie, ?you?re not doing it right,? or ?you?re stupid.? Pt also reported that he feels tactile hallucinations (like a big spider crawling and grabbing onto him) everyday and sees visual hallucinations of shadows as well. Pt reported that he has not seen VH today but if he looked into the glass window, he could start seeing shadows. Pt denied current SI/HI/AH (the AH goes away when the pt is talking to hospital staff). Pt did appear to be responding to internal stimuli and thought blocking. Pt presented with persecutory delusions and paranoia. Pt has a hx of medication noncompliance. He advised TW that these visual hallucinations are ghosts and that he had sexual intercourse with one of the ghosts last night. He stated that he can feel it when the ghosts touch me but he can not feel himself touching the ghosts. He was fully compliant with the admisssion process and with medications as ordered.
[2023-04-07 08:23] VITALS: BP 109/55; PULSE 68; RESP 16; TEMP 37; O2SAT 96
[2023-04-07 08:27] LABS: Alanine Aminotransferase 9 U/L (0-40); Albumin Level 4.1 g/dL (3.5-5.0); Alkaline Phosphatase 67 U/L (39-117); Anion Gap 14 (12-20); Aspartate Amino Transferase 19 U/L (5-37); Bilirubin Total 0.1 mg/dL (0.0-1.0); Blood Urea Nitrogen 11 mg/dL (9-16); Calcium 9.6 mg/dL (8.4-10.2); Carbon Dioxide 27 mmol/L (22-29); Chloride 107 mmol/L (96-108); Cholesterol 154 mg/dL (<200); Creatinine Clr Calc Pharmacy 121.7; Estimated Glomerular Filt Rate > 60; Glucose Fasting 123 mg/dL (60-99); HDL Cholesterol 25 mg/dL (>40); Potassium 3.9 mmol/L (3.3-5.1); Sodium 144 mmol/L (135-145); Total Protein 7.9 g/dL (6.5-8.0); Triglycerides 448 mg/dL (<150)
[2023-04-07] MEDS: Ziprasidone 40 MG CAPSULE PO (08:38)
--- NOTE | 2023-04-07 09:55 | P.HPPS_ITS ---
HPI Date of Service: 04/07/23 Chief Complaint: Psychosis/SI Sources of Information: patient interviewed, chart reviewed and crisis/core team assessment reviewed HPI Subjective Notes: Lee Warning and Conditional Voluntary Narrative: Patient is a 32-year-old male with history of schizophrenia, remote history of polysubstance abuse in sustained remission, cannabis use, last discharged from on 02/03/2023, who presents for worsening auditory hallucinations with subsequent SI in the face of going off medication. Patient reports that on Haldol he was doing good... Everything was good when last discharge, taking his medications for about a month and sober from cannabis (as well as all other substances); however he said it caused some shakiness and about a month ago his medication was changed to Geodon; patient however he never took it or any other medication; coincidentally at the same time he stopped taking medications he also smoked a vape pen of cannabis. Since stopping medications a month ago patient patient auditory hallucinations returned. He says they start as soon as he wakes up in the morning and say things like do not tell them how I got here.. And will say mean, derogatory things to him. Patient reports there are multiple voices interacting. Patient said that the voices became so overwhelming that he thought about suicide however said he made no attempt and is without any plans or intention. Patient says he would like to get back on medication to eliminate voices. Denies any drug or alcohol use for years; sober from cannabis for a few months, until about a month ago. Past Psychiatric History: Therapist-Skylar ([facility] [place] ) Provider- Amita ([facility] [place]) Medical Evaluation Reviewed: Yes [facility] Medical History Depression No known health problems Schizophrenia Surgical History H/O wrist surgery Family History: Deferred Social History: homeless, disabled, single, no children. Substance History: cannabis; restarted about a month ago (after off for a month); hx of polysubstance abuse reporting in sustained remission for years Trauma History: Deferred Diagnostics Vital Signs (24Hr): Vital Signs - 24 hr 04/06/23 14:00 04/06/23 18:00 Temperature 97.8 F Pulse Rate 88 Respiratory Rate 16 18 Blood Pressure 124/71 Pulse Oximetry 100 Oxygen Delivery Method Room Air BMI result Body Mass Index 33.9 Labs 04/04/23 22:33 04/07/23 07:57 Labs: Laboratory Results - last 48 hr 04/05/23 04/07/23 09:44 07:57 Sodium 144 Potassium 3.9 Chloride 107 Carbon Dioxide 27 Anion Gap 14 BUN 11 Creatinine 0.95 Estim Creat Clear Calc 121.7 Estimated GFR > 60 Fasting Glucose 123 H Calcium 9.6 Total Bilirubin 0.1 AST 19 ALT 9 Alkaline Phosphatase 67 Total Protein 7.9 Albumin 4.1 Triglycerides 448 H Cholesterol 154 LDL Cholesterol, Calc TNP HDL Cholesterol 25 L Urine Color Yellow Urine Appearance Clear Urine pH 5.5 Ur Specific [place] >= 1.030 H Urine Protein Negative Urine Glucose (UA) Negative Urine Ketones Trace Urine Blood Negative Urine Nitrite Negative Ur Leukocyte Esterase Negative COVID-19 ([facility]) Negative COVID-19 Clin Com See Note Meds/Allergies Meds Home Medications Medication Instructions Recorded Confirmed Type trazodone 50 mg tablet 50 - 100 mg PO BEDTIME PRN insomnia 01/21/23 04/04/23 History ziprasidone HCl 40 mg capsule 40 mg PO DAILY 04/04/23 04/05/23 History Allergies Allergies Allergy/AdvReac Type Severity Reaction Status Date / Time No Known Allergies Allergy Unverified 01/21/23 12:49 Mental Status Exam Mental Status Exam Narrative: Pt is alert and oriented; behavior is cooperative, polite and calm; patient is not in distress; dressed in casual attire with adequate hygiene; mood is described as anxious and affect congruent; eye contact appropriate; thought blocking however otherwise Speech is normal rate, volume and prosody and not pressured; some mild psychomotor retardation present; thought process is concrete, goal directed; Thought content is on eradicated AH, tx; otherwise pertinent to relevant topics; no paranoid delusional thinking expressed; currently denies any SI/no HI. Ongoing AH; Patient with Thought blocking and internal preoccupation Patients insight and judgment impaired but improving. Assessment & Plan Assessment & Plan (1) Schizophrenia, paranoid: Status: Acute Code(s): F20.0 - Paranoid schizophrenia Plan Patient is a 32-year-old male with history of schizophrenia, remote history of polysubstance abuse in sustained remission, cannabis use, last discharged from on 02/03/2023, who presents for worsening auditory hallucinations with subsequent SI in the face of going off medication. Patient reports that on Haldol he was doing good... Everything was good when last discharge, taking his medications for about a month and sober from cannabis (as well as all other substances); however he said it caused some shakiness and about a month ago his medication was changed to Geodon; patient however he never took it or any other medication; coincidentally at the same time he stopped taking medications he also smoked a vape pen of cannabis. Since stopping medications a month ago patient patient auditory hallucinations returned. He says they start as soon as he wakes up in the morning and say things like do not tell them how I got here.. And will say mean, derogatory things to him. Patient reports there are multiple voices interacting. Patient said that the voices became so overwhelming that he thought about suicide however said he made no attempt and is without any plans or intention. Patient says he would like to get back on medication to eliminate voices. Denies any drug or alcohol use for years; sober from cannabis for a few months, until about a month ago. Impression/Plan: Return of psychotic symptoms in the face of going off medication. Patient reports trial of Haldol which cause shakiness.. He said Zyprexa also caused the same thing but it has not clear if he is confusing Haldol with Zyprexa. Discussed medications, options and patient agreed to try Risperdal. Plan: CV; later on signed 3 day notice Q 15 minute checks Start Risperdal 1 mg daily and 2 mg q.h.s.; will likely titrate Patient educated on: diagnosis and medication risk/benefits Informed Consent: understands and further education needed Reason for continued inpatient stay Substantial Risk for: rapid decompensation Statement Statement: I have reviewed the history and physical and performed a pertinent examination on my patient. No changes have occurred unless specified. If the History and Physical was not performed prior to admission, the Hospitalist's service will be consulted for completing the admission physical. Time Spent With Patient Time: Total time managing care of this patient today ____ minutes.
[2023-04-07 12:06] LABS: Estimated Average Glucose 100 mg/dL; Hemoglobin A1c % 5.1 % (<6.0)
[2023-04-07] MEDS: risperiDONE 1 MG TABLET PO (16:07)
[2023-04-07 18:00] VITALS: BP 127/77; PULSE 78; RESP 16; TEMP 36.9; O2SAT 97
[2023-04-07] MEDS: traZODone HCL 50 MG TABLET PO (21:19)
[2023-04-07] MEDS: risperiDONE 2 MG TABLET PO (21:19)
[2023-04-08] MEDS: OLANZapine 5 MG TABLET PO ×2 (00:52→08:14)
[2023-04-08] MEDS: traZODone HCL 50 MG TABLET PO ×2 (00:52→22:23)
[2023-04-08] MEDS: OLANZapine ODT 10 MG TAB.RAPDIS TRANSLINGU (04:42)
[2023-04-08 08:46] VITALS: BP 103/52; PULSE 73; RESP 16; TEMP 36.7; O2SAT 96
--- NOTE | 2023-04-08 09:26 | HO.PSYCHPN ---
Subjective Subjective Date of Service: 04/08/23 Reason For Visit: Psychosis/SI Interim History: Met with patient; discussed with team still some AH, did not sleep well; agrees to increase risperdal. Mood is better; no SI Mental Status Exam Mental Status Exam Narrative: Pt is alert and oriented; behavior is cooperative, polite and calm; patient is not in distress; dressed in casual attire with adequate hygiene; mood is described as anxious and affect congruent; eye contact appropriate; thought blocking however otherwise Speech is normal rate, volume and prosody and not pressured; some mild psychomotor retardation present; thought process is concrete, goal directed; Thought content is on eradicated AH, tx; otherwise pertinent to relevant topics; no paranoid delusional thinking expressed; currently denies any SI/no HI. Ongoing AH; Patient with Thought blocking and internal preoccupation Patients insight and judgment impaired but improving. Diagnostics Vital Signs (24Hr): Vital Signs - 24 hr 04/07/23 18:00 04/08/23 08:46 Temperature 98.4 F 98.1 F Pulse Rate 78 73 Respiratory Rate 16 16 Blood Pressure 127/77 103/52 L Pulse Oximetry 97 96 Oxygen Delivery Method Room Air Room Air BMI result Body Mass Index 33.9 Labs 04/04/23 22:33 04/07/23 07:57 Labs: Laboratory Results - last 48 hr 04/07/23 07:57 Sodium 144 Potassium 3.9 Chloride 107 Carbon Dioxide 27 Anion Gap 14 BUN 11 Creatinine 0.95 Estim Creat Clear Calc 121.7 Estimated GFR > 60 Fasting Glucose 123 H Estimat Average Glucose 100 Hemoglobin A1c % 5.1 Calcium 9.6 Total Bilirubin 0.1 AST 19 ALT 9 Alkaline Phosphatase 67 Total Protein 7.9 Albumin 4.1 Triglycerides 448 H Cholesterol 154 LDL Cholesterol, Calc TNP HDL Cholesterol 25 L Medications Medications Current Medications Acetaminophen (Acetaminophen 325 Mg Tablet) 650 mg PO Q6H PRN PRN Reason: Headache/Pain Mild Scale (1-3) Al Hydroxide/Mg Hydroxide (Magnesium Hydrox/Alum Hydrox 30 Ml Oral.Susp) 30 ml PO Q6H PRN PRN Reason: Heartburn/Nausea Hydroxyzine HCl (Hydroxyzine Hcl 25 Mg Tablet) 25 mg PO Q6H PRN PRN Reason: Anxiety Magnesium Hydroxide (Milk Of Magnesia 30 Ml Oral.Susp) 30 ml PO DAILY PRN PRN Reason: Constipation Nicotine Polacrilex (Nicotine Polacrilex 2 Mg Gum) 4 mg BUCCAL Q2H PRN PRN Reason: Nicotine Cravings Olanzapine (Olanzapine 5 Mg Tablet) 5 mg PO TID PRN PRN Reason: mild agitation Last Admin: 04/08/23 08:14 Dose: 5 mg Olanzapine (Olanzapine Odt 10 Mg Tab.Rapdis) 10 mg TRANSLINGU Q6H PRN PRN Reason: severe agitation Last Admin: 04/08/23 04:42 Dose: 10 mg Risperidone (Risperidone 2 Mg Tablet) 2 mg PO BEDTIME DELFIN Last Admin: 04/07/23 21:19 Dose: 2 mg Trazodone HCl (Trazodone Hcl 50 Mg Tablet) 50 mg PO BEDTIME [id number] PRN PRN Reason: Insomnia Last Admin: 04/08/23 00:52 Dose: 50 mg Allergies Allergies Allergy/AdvReac Type Severity Reaction Status Date / Time No Known Allergies Allergy Unverified 01/21/23 12:49 Assessment & Plan Assessment & Plan (1) Schizophrenia, paranoid: Status: Acute Code(s): F20.0 - Paranoid schizophrenia Plan Patient is a 32-year-old male with history of schizophrenia, remote history of polysubstance abuse in sustained remission, cannabis use, last discharged from on 02/03/2023, who presents for worsening auditory hallucinations with subsequent SI in the face of going off medication. Patient reports that on Haldol he was doing good... Everything was good when last discharge, taking his medications for about a month and sober from cannabis (as well as all other substances); however he said it caused some shakiness and about a month ago his medication was changed to Geodon; patient however he never took it or any other medication; coincidentally at the same time he stopped taking medications he also smoked a vape pen of cannabis. Since stopping medications a month ago patient patient auditory hallucinations returned. He says they start as soon as he wakes up in the morning and say things like do not tell them how I got here.. And will say mean, derogatory things to him. Patient reports there are multiple voices interacting. Patient said that the voices became so overwhelming that he thought about suicide however said he made no attempt and is without any plans or intention. Patient says he would like to get back on medication to eliminate voices. Denies any drug or alcohol use for years; sober from cannabis for a few months, until about a month ago. Impression/Plan: Return of psychotic symptoms in the face of going off medication. Patient reports trial of Haldol which cause shakiness.. He said Zyprexa also caused the same thing but it has not clear if he is confusing Haldol with Zyprexa. Discussed medications, options and patient agreed to try Risperdal. 04/08 still with ; only slept 2 hours; increasing risperdal Plan: 3 day notice Q 15 minute checks increase to Risperdal 4mg q.h.s.; Patient educated on: diagnosis and medication risk/benefits Informed Consent: understands Reason for continued inpatient stay Substantial Risk for: stable for discharge Time Spent With Patient Time: Total time managing care of this patient today ____ minutes.
[2023-04-08] MEDS: risperiDONE 1 MG TABLET PO (10:23)
[2023-04-08] MEDS: risperiDONE 0.5 MG TABLET PO ×2 (13:09→18:12)
[2023-04-08] MEDS: Nicotine Polacrilex 2 MG GUM 4 MG BUCCAL ×2 (14:33→20:25)
[2023-04-08 18:45] VITALS: BP 126/76; PULSE 95; TEMP 36.9; O2SAT 96
[2023-04-08] MEDS: risperiDONE 2 MG TABLET 4 MG PO (22:23)
[2023-04-09 07:00] VITALS: BMI 36.8
[2023-04-09] MEDS: OLANZapine ODT 10 MG TAB.RAPDIS TRANSLINGU ×2 (08:19→15:29)
[2023-04-09 09:27] VITALS: BP 118/75; PULSE 104; RESP 75; TEMP 36.2; O2SAT 97
[2023-04-09] MEDS: risperiDONE 0.5 MG TABLET PO ×2 (09:41→13:30)
--- NOTE | 2023-04-09 17:06 | HO.PSYCHPN ---
Subjective Subjective Date of Service: 04/09/23 Reason For Visit: Psychosis/SI Interim History: Met with patient; discussed with team feeling much better; slept well last night and no AH; mood remains better and no SI. Later in day, automobile and property underwriter realized pt had been getting 20mg of Zyprexa each day in accumulating of PRN's Discussed this with patient who agreed Zyprexa might be reason that AH resolved. He thought that Zyprexa had caused shakiness in the past but denies any tremor/shakiness now and thinks he may have been mistaken zyprexa for Haldol, which he got at last admission and had told automobile and property underwriter it caused shakiness. Pt agrees to switch from risperdal to Zyprexa. He still wants to dc tomorrow and says he'll work out further med management with outpt provider Mental Status Exam Mental Status Exam Narrative: Pt is alert and oriented; behavior is cooperative, polite and calm; had brief, private outburst which self-resolved; patient is not in distress; dressed in casual attire with adequate hygiene; mood is described as good and affect congruent, brighter; eye contact appropriate; still some thought blocking but less and speech more fluid and normal rate, volume and prosody; not pressured; no psychomotor retardation present; thought process is somewhat concrete, but linear and goal directed; Thought content is on eradicated AH, tx; otherwise pertinent to relevant topics; no paranoid delusional thinking expressed; denies any SI/no HI. Denies AH; Patients insight and judgment fair Diagnostics Vital Signs (24Hr): Vital Signs - 24 hr 04/08/23 18:45 04/09/23 09:27 Temperature 98.5 F 97.1 F Pulse Rate 95 104 H Respiratory Rate 75 H Blood Pressure 126/76 118/75 Pulse Oximetry 96 97 Oxygen Delivery Method Room Air Room Air BMI result Body Mass Index 36.8 Labs 04/04/23 22:33 04/07/23 07:57 Medications Medications Current Medications Acetaminophen (Acetaminophen 325 Mg Tablet) 650 mg PO Q6H PRN PRN Reason: Headache/Pain Mild Scale (1-3) Al Hydroxide/Mg Hydroxide (Magnesium Hydrox/Alum Hydrox 30 Ml Oral.Susp) 30 ml PO Q6H PRN PRN Reason: Heartburn/Nausea Hydroxyzine HCl (Hydroxyzine Hcl 25 Mg Tablet) 25 mg PO Q6H PRN PRN Reason: Anxiety Magnesium Hydroxide (Milk Of Magnesia 30 Ml Oral.Susp) 30 ml PO DAILY PRN PRN Reason: Constipation Nicotine Polacrilex (Nicotine Polacrilex 2 Mg Gum) 4 mg BUCCAL Q2H PRN PRN Reason: Nicotine Cravings Last Admin: 04/08/23 20:25 Dose: 4 mg Olanzapine (Olanzapine 5 Mg Tablet) 5 mg PO TID PRN PRN Reason: mild agitation Last Admin: 04/08/23 08:14 Dose: 5 mg Olanzapine (Olanzapine Odt 10 Mg Tab.Rapdis) 10 mg TRANSLINGU Q6H PRN PRN Reason: severe agitation Last Admin: 04/09/23 15:29 Dose: 10 mg Risperidone (Risperidone 2 Mg Tablet) 4 mg PO BEDTIME DELFIN Last Admin: 04/08/23 22:23 Dose: 4 mg Risperidone (Risperidone 0.5 Mg Tablet) 0.5 mg PO TID PRN PRN Reason: AH Last Admin: 04/09/23 13:30 Dose: 0.5 mg Trazodone HCl (Trazodone Hcl 50 Mg Tablet) 50 mg PO BEDTIME [id number] PRN PRN Reason: Insomnia Last Admin: 04/08/23 22:23 Dose: 50 mg Allergies Allergies Allergy/AdvReac Type Severity Reaction Status Date / Time No Known Allergies Allergy Unverified 01/21/23 12:49 Assessment & Plan Assessment & Plan (1) Schizophrenia, paranoid: Status: Acute Code(s): F20.0 - Paranoid schizophrenia Plan Patient is a 32-year-old male with history of schizophrenia, remote history of polysubstance abuse in sustained remission, cannabis use, last discharged from on 02/03/2023, who presents for worsening auditory hallucinations with subsequent SI in the face of going off medication. Patient reports that on Haldol he was doing good... Everything was good when last discharge, taking his medications for about a month and sober from cannabis (as well as all other substances); however he said it caused some shakiness and about a month ago his medication was changed to Geodon; patient however he never took it or any other medication; coincidentally at the same time he stopped taking medications he also smoked a vape pen of cannabis. Since stopping medications a month ago patient patient auditory hallucinations returned. He says they start as soon as he wakes up in the morning and say things like do not tell them how I got here.. And will say mean, derogatory things to him. Patient reports there are multiple voices interacting. Patient said that the voices became so overwhelming that he thought about suicide however said he made no attempt and is without any plans or intention. Patient says he would like to get back on medication to eliminate voices. Denies any drug or alcohol use for years; sober from cannabis for a few months, until about a month ago. Impression/Plan: Return of psychotic symptoms in the face of going off medication. Patient reports trial of Haldol which cause shakiness.. He said Zyprexa also caused the same thing but it has not clear if he is confusing Haldol with Zyprexa. Discussed medications, options and patient agreed to try Risperdal. 04/08 still with aH; only slept 2 hours; increasing risperdal 04/09 feeling much better; slept well last night and no AH; mood remains better and no SI. Later in day, automobile and property underwriter realized pt had been getting 20mg of Zyprexa each day in accumulating of PRN's Discussed this with patient who agreed Zyprexa might be reason that AH resolved. He thought that Zyprexa had caused shakiness in the past but denies any tremor/shakiness now and thinks he may have been mistaken zyprexa for Haldol, which he got at last admission and had told automobile and property underwriter it caused shakiness. Pt agrees to switch from risperdal to Zyprexa. He still wants to dc tomorrow and says he'll work out further med management with outpt provider -pt is doing much better; mood better and no SI; AH resolved; sleeping well. Pt is future oriented wanting to get back to work and he wants to dc tomorrow as 3 day notice is due. Pt is not in imminent risk for harm to self or others and request for discharge honored. Plan: 3 day notice Q 15 minute checks DC risperdal START Zyprexa 20mg qhs Patient educated on: diagnosis and medication risk/benefits Informed Consent: understands Reason for continued inpatient stay Substantial Risk for: stable for discharge Time Spent With Patient Time: Total time managing care of this patient today ____ minutes.
[2023-04-09 18:00] VITALS: BP 122/76; PULSE 105; TEMP 37
[2023-04-09] MEDS: traZODone HCL 50 MG TABLET PO (21:07)
[2023-04-09] MEDS: OLANZapine 10 MG TABLET 20 MG PO (21:07)
--- NOTE | 2023-04-10 08:39 | PM.PSYDC ---
DS: Providers Provider Date of Service: 04/10/23 Date of admission: 04/06/23 15:42 Date of discharge: 04/10/23 Primary care physician: Unknown Physician Attending physician on admission: Everton Henley Attending physician on discharge: Everton Henley DS: Diagnosis Discharge Diagnosis (1) Schizophrenia, paranoid: Status: Acute DS: Medications Discharge Medications Home Medications: Previous Rx's Medication Instructions Recorded nicotine (polacrilex) 4 mg gum 4 mg buccal Q2H 30 days #100 ea 04/10/23 olanzapine 2.5 mg tablet 2.5 mg PO BID PRN Agitation/voices 04/10/23 30 days #30 tabs olanzapine 20 mg tablet 20 mg PO BEDTIME 30 days #30 tabs 04/10/23 trazodone 50 mg tablet 50 mg PO BEDTIME PRN Insomnia 30 04/10/23 days #30 tabs Mental Status Exam Mental Status Exam Narrative: Pt is alert and oriented; behavior is cooperative, polite and calm; patient is not in distress; dressed in casual attire with adequate hygiene; mood is described as good and affect congruent, brighter; eye contact appropriate; still some thought blocking but less and speech more fluid and normal rate, volume and prosody; not pressured; no psychomotor retardation present; thought process is somewhat concrete, but linear and goal directed; Thought content is on discharge; tx; otherwise pertinent to relevant topics; no paranoid delusional thinking expressed; denies any SI/no HI. Denies AH; Patients insight and judgment fair Data Data Completed and Pending Completed studies during hospitalization [Text1]: 04/04/23 04/05/23 04/07/23 22:33 09:44 07:57 WBC 8.8 RBC 5.12 Hgb 13.9 L Hct 43.8 MCV 85.5 MCH 27.1 MCHC 31.7 RDW 13.4 Plt Count 257 MPV 10.1 Immature Gran % (Auto) 0.2 Neut % (Auto) 49.7 Lymph % (Auto) 36.4 [place] % (Auto) 8.9 Eos % (Auto) 4.5 H Baso % (Auto) 0.3 Lymph # (Auto) 3.2 [place] # (Auto) 0.8 Eos # (Auto) 0.4 Baso # (Auto) 0.0 Abs Immat Gran (auto) 0.02 Absolute Neuts (auto) 4.4 Absolute Nucleated RBC 0.000 Nucleated RBC % (auto) 0.0 Sodium 143 144 Potassium 4.4 3.9 Chloride 106 107 Carbon Dioxide 28 27 Anion Gap 13 14 BUN 14 11 Creatinine 1.67 H 0.95 Estim Creat Clear Calc 69.2 121.7 Estimated GFR 48 > 60 Random Glucose 121 H Fasting Glucose 123 H Estimat Average Glucose 100 Hemoglobin A1c % 5.1 Calcium 9.4 9.6 Total Bilirubin 0.2 0.1 AST 13 19 ALT 10 9 Alkaline Phosphatase 72 67 Total Protein 8.1 H 7.9 Albumin 4.4 4.1 Triglycerides 448 H Cholesterol 154 LDL Cholesterol, Calc TNP HDL Cholesterol 25 L Urine Color Yellow Urine Appearance Clear Urine pH 5.5 Ur Specific [place] >= 1.030 H Urine Protein Negative Urine Glucose (UA) Negative Urine Ketones Trace Urine Blood Negative Urine Nitrite Negative Ur Leukocyte Esterase Negative Urine Opiates Screen Not Detected Urine Fentanyl Screen Not Detected Ur Barbiturates Screen Not Detected Ur Phencyclidine Scrn Not Detected Ur Amphetamines Screen Not Detected U Benzodiazepines Scrn Not Detected Urine Cocaine Screen Not Detected U Marijuana (THC) Screen Not Detected Ethyl Alcohol < 10 COVID-19 ([facility]) Negative COVID-19 Clin Com See Note DS: Summary Hospital Course Hospital Course: Patient is a 32-year-old male with history of schizophrenia, remote history of polysubstance abuse in sustained remission, cannabis use, last discharged from on 02/03/2023, who presents for worsening auditory hallucinations with subsequent SI in the face of going off medication. Patient reports that on Haldol he was doing good... Everything was good when last discharge, taking his medications for about a month and sober from cannabis (as well as all other substances); however he said it caused some shakiness and about a month ago his medication was changed to Geodon; patient however he never took it or any other medication; coincidentally at the same time he stopped taking medications he also smoked a vape pen of cannabis. Since stopping medications a month ago patient patient auditory hallucinations returned. He says they start as soon as he wakes up in the morning and say things like do not tell them how I got here.. And will say mean, derogatory things to him. Patient reports there are multiple voices interacting. Patient said that the voices became so overwhelming that he thought about suicide however said he made no attempt and is without any plans or intention. Patient says he would like to get back on medication to eliminate voices. Denies any drug or alcohol use for years; sober from cannabis for a few months, until about a month ago. Hospital course: Return of psychotic symptoms in the face of going off medication. Patient reports trial of Haldol which cause shakiness.. He later said Zyprexa also caused the same thing but it has not clear if he is confusing Haldol with Zyprexa. Pt started with Risperdal but ended up on Zyprexa. 04/08 still with aH; only slept 2 hours; increasing risperdal 04/09 feeling much better; slept well last night and no AH; mood remains better and no SI. -Later in day, ticket writer realized pt had been getting 20mg of Zyprexa each day in accumulating of PRN's Discussed this with patient who agreed Zyprexa might be reason that AH resolved. He thought that Zyprexa had caused shakiness in the past but denies any tremor/shakiness now and thinks he may have been mistaken zyprexa for Haldol, which he got at last admission and had told ticket writer it caused shakiness. Pt agrees to switch from risperdal to Zyprexa. He still wants to dc tomorrow and says he'll work out further med management with outpt provider -pt is doing much better; mood better and no SI; AH resolved; sleeping well. Pt is future oriented wanting to get back to work and he wants to dc tomorrow as 3 day notice is due. Pt is not in imminent risk for harm to self or others and request for discharge honored. Medications: Zyprexa 20mg qhs Time spent discussing smoking cessation with patient: 3 to 10 minutes Status at Discharge Functional status at discharge: independent ambulation Overall status at discharge: patient is back to baseline Time Spent with Patient Time attestation: Total time managing care of this patient today ____ minutes. Time spent: Less than 30 minutes Discharge Plan Discharge Anticipated Discharge Date/Time: 04/10/23 11:00 Patient Disposition: Home, Self-Care Discharge Diagnosis: Schizophrenia Referrals: WILLEM REYES APRN, PMHNP: [facility] [Other] - 1 Week (Outpatient psychiatric provider will be leaving [facility]. A new prescriber will be assigned to you. [facility] will reach out to you to schedule follow-up appointment. Should you have any questions call [facility] clinic) Erica: [facility] [Other] - 04/15/23 4:00 pm (Hospital discharge appointment with outpatient therapist Appointment is in person at [facility] clinic) Sachin Becerra MD [Physician] - (Doctor's office will call you to schedule follow up appointment.) Discharge Medications: New nicotine (polacrilex) 4 mg gum 4 mg buccal Q2H 30 Days Qty: 100 0RF trazodone 50 mg Tablet 50 mg PO BEDTIME PRN (Reason: Insomnia) 30 Days Qty: 30 1RF olanzapine 20 mg tablet 20 mg PO BEDTIME 30 Days Qty: 30 1RF olanzapine 2.5 mg Tablet 2.5 mg PO BID PRN (Reason: Agitation/voices) 30 Days Qty: 30 1RF Discontinued trazodone 50 mg tablet 50 - 100 mg PO BEDTIME PRN (Reason: insomnia) ziprasidone HCl 40 mg capsule 40 mg PO DAILY Discharge Orders: Discharge Order (Routine); Ordered 04/10/23 Ordered By: Everton Henley Diet: Regular diet Activity on Discharge: As tolerated Stand Alone Forms: Patient Portal Discharge page, Community Support Care Plan Goals: Maintain mood and safe behaviors Take medications as prescribed Continue to pursue sobriety Practice coping skills Continue with outpatient providers and reach out to them as needed Health Concerns: Mood stability and behaviors Plan of Treatment: Follow up with your PCP, psychiatric provider and other outpatient providers regarding above concerns Take medications as prescribed Assessment: Risk assessment at time of discharge:? Patient was interviewed prior to discharge and found to be fully oriented and without any SI or HI. Patient has improved insight and judgment and wants to continue treatment. Patient is not in imminent risk of harm to self or others and has a safety plan that includes presenting to the closest ER or calling 911 if feeling unsafe.? Patient has been observed closely by nursing and unit staff throughout admission; patient has not engaged in any behaviors that suggest dangerousness to self or others and has demonstrated appropriate behaviors and impulse control Discharge Date/Time: 04/10/23 10:40
[2023-04-10 08:40] VITALS: BP 143/75; PULSE 96; RESP 98; TEMP 36.6; O2SAT 96
[2023-04-10] MEDS: OLANZapine 2.5 MG TABLET PO (09:02)
== END 2023-04-10 10:40 | disposition home or self-care (01) | DRG 885 ==
LOC: HO.ED 04-05 09:35 → HO.PM5 04-06 15:54
PROVIDERS: Admitting Provider Psychiatry & Neurology Psychiatry; Emergency Provider Emergency Medicine; Visit Provider Psychiatry & Neurology Psychiatry
DX: F20.0 Paranoid schizophrenia (principal); R45.851 Suicidal ideations; F19.11 Other psychoactive substance abuse, in remission; Z20.822 Contact with and (suspected) exposure to COVID-19; Z91.148 Patient's other noncompliance with medication regimen for other reason; Z87.891 Personal history of nicotine dependence; Z79.899 Other long term (current) drug therapy
CPT/HCPCS: 36415; 80053; 80061; 80307; 81003; 83036; 85025; 87635; 93005; 99285; S9485

== ENCOUNTER → 2023-04-05 09:31 | Outpatient (BNV) | payer OTHER, SELFPAY | PROVIDERS: Emergency Provider Emergency Medicine; Visit Provider Internal Medicine Cardiovascular Disease | DX: I45.81 Long QT syndrome (principal) | CPT/HCPCS: 93010 ==

== ENCOUNTER → 2023-04-06 15:42 | Outpatient (BNV) | payer OTHER, SELFPAY | PROVIDERS: Admitting Provider Psychiatry & Neurology Psychiatry; Emergency Provider Emergency Medicine; Visit Provider Psychiatry & Neurology Psychiatry | DX: F20.0 Paranoid schizophrenia (principal) | CPT/HCPCS: 90792; 99232; 99238 ==

== ENCOUNTER 2024-11-17 12:59 | Inpatient (IN) | payer OTHER, SELFPAY ==
[2024-11-17 13:05] VITALS: BMI 25.8
--- NOTE | 2024-11-17 13:33 | ED_ITS ---
HPI - General Adult General Chief complaint: Psychiatric Symptoms Stated complaint: SECTION 12 Time Seen by Provider: 11/17/24 13:31 Source: patient and EMS Mode of arrival: EMS Limitations: no limitations History of Present Illness ED Provider: Gladis Hutchison PA-C HPI narrative: Patient is a 34 year old assigned male at with a history of paranoid schizophrenia presenting to the emergency department today with paranoia. EMS states that they were called to the patient's apartment complex for him acting abnormally and paranoid. Patient states that he has not been taking his medications and refuses to answer any other questions. Related Data Previous Rx's ?Medication ?Instructions ?Recorded olanzapine 2.5 mg tablet 2.5 mg PO BID PRN Agitation/ voices 04/10/23 30 days #30 tabs olanzapine 20 mg tablet 20 mg PO BEDTIME 30 days #30 tabs 04/10/23 trazodone 50 mg tablet 50 mg PO BEDTIME PRN Insomni a 30 04/10/23 days #30 tabs Allergies Allergy/AdvReac Type Severity Reaction Status Date / Time No Known Allergies Allergy Verified 11/17/24 13:10 Review of Systems 2 Review of Systems: Yes Other (patient refuses to answer any questions) Constitutional: Constitutional: Reports as per HPI Eyes: Eyes: Reports as per HPI ENT: Reports as per HPI Cardiovascular: Cardiovascular: Reports as per HPI Respiratory: Respiratory: Reports as per HPI Gastrointestinal: Gastrointestinal: Reports as per HPI Genitourinary: Genitourinary: Reports as per HPI Musculoskeletal: Musculoskeletal: Reports as per HPI Integumentary/Breasts: Skin/Breast: Reports as per HPI Neurologic: Reports as per HPI Psychiatric: Psychiatric: Reports as per HPI Endocrine: Endocrine: Reports as per HPI Hematologic/Lymphatic: Hematologic/Lymphatic: Reports as per HPI Allergic/Immunologic: Allergic/Immunologic: Reports as per HPI PMF Past Medical History Attestation statement: The following information was validated with the patient. Source: old records reviewed and nursing notes reviewed Medical History Depression No known health problems Schizophrenia Surgical History H/O wrist surgery Social History Social History Household Members: Family Housing: Apartment Do you presently have visiting nurse or other home services: No Unable to assess alcohol history related to: Unknown Patient Tobacco Use Status: Former Tobacco user Tobacco use type: Cigarette Cigarette Packs Per Day: 0 Cigarettes Per Day: 0 Smoked in Last 30 Days: No e-Cigarette/Vaping Use: Former Use Second Hand Smoke Exposure: No Use of substances other than those prescribed or required for medical reasons: No Substance Use Type: Prescription Drugs Advance Directives: No Advance Directives Information Provided: Yes service: No Sexual orientation: Straight/Heterosexual Physical Exam ED Vital Signs: Vital Signs - 24 hr 11/17/24 18:34 11/17/24 19:19 Pulse Rate 54 Respiratory Rate 16 16 Blood Pressure 120/76 Pulse Oximetry 100 Oxygen Delivery Method Room Air BMI result Body Mass Index 25.8 Const General: cooperative, no acute distress, alert and awake Nutritional Appearance: well nourished Orientation/consciousness: oriented to person HENMT Head: Yes normal to inspection and Yes atraumatic Ears: hearing grossly normal bilaterally and external ears normal General nose exam: Normal external nose present, no nasal discharge noted and no epistaxis Face and sinus: Yes normal facial exam, No abrasion and No laceration Mouth: Normal oral and palatal mucosa present, no drooling and no muffled voice Eyes General: appearance normal, both eyes and all related structures Periorbital: periorbital findings normal Eyelids: Yes eyelids normal Conjunctivae: conjunctivae normal Pupils: Equal, round and reactive pupils present EOM: EOMs intact bilaterally Neck Neck: Yes normal visual inspection and Yes full ROM Resp Effort & Inspection: normal respiratory effort and able to speak in complete sentences Neuro General: oriented to person, moves all extremities and CN's II-XI intact bilaterally Cranial nerves: Yes Equal, round and reactive pupils present Extrem General: Yes normal to inspection, Yes full ROM and Yes capillary refill normal Psych Appearance: grossly normal Mental Status: mental status grossly normal Affect: Labile affect present and Hostile affect present Attitude: Belligerent attititude/behavior present Thought process: Circumstantial thought process present, Confabulating thought process present and Illogical thought process present Thought content: Paranoid delusions present Course Course Course Narrative: Time: 22:42 Date: 11/17/24 Provider: Maggie Thayer DO Physician observation ended at 1042pm. Patient to be admitted as inpatient to psychiatry. Medications Administered Generic Name Dose Route Start Last Admin Trade Name Melissa PRN Reason Stop Dose Admin Olanzapine 20 mg 11/17/24 21:00 11/17/24 21:13 Olanzapine 10 Mg Tablet PO Not Given BEDTIME DELFIN Discontinued Medications Generic Name Dose Route Start Last Admin Trade Name Melissa PRN Reason Stop Dose Admin Diazepam 5 mg 11/17/24 14:33 11/17/24 14:43 Diazepam 10 Mg/2 Ml Cartridge IM 11/17/24 14:34 5 mg STAT STA Administration Haloperidol Lactate 5 mg 11/17/24 14:33 11/17/24 14:43 Haloperidol Lactate 5 Mg/Ml Vial IM 11/17/24 14:34 5 mg ONCE ONE Administration Lorazepam 2 mg 11/17/24 13:33 11/17/24 17:24 Lorazepam 1 Mg Tablet PO 11/17/24 13:34 Not Given ONCE ONE Olanzapine 5 mg 11/17/24 13:33 11/17/24 14:17 Olanzapine 5 Mg Tablet PO 11/17/24 13:34 5 mg ONCE ONE Administration Medical Decision Making Medical Decision Making MDM Narrative: Patient is a 34 year old assigned male at with a history of paranoid schizophrenia presenting to the emergency department today with paranoia. Patient's physical exam showed a paranoid and borderline aggressive / combative individual. Patient's blood work showed a mildly elevated WBC count of 12.9 but were otherwise unremarkable. Elevated WBC is likely stress reaction as he has no evidence of an infectious process. Shortly after the patient arrived he became agitated and somewhat aggressive. Patient was given PO Zyprexa which he took but he refused PO ativan. After an hour the patient remained agitated and somewhat aggressive, at that time the patient was given IM Haldol and IM Valium. Patient was reassessed and much more appropriate. Patient placed in observation at 1512 pending CARE team evaluation. Differential Diagnosis Differential Diagnoses: The differential diagnosis associated with the presentation includes Paranoia Emilie Psychosis Admission/Observation Consideration of admission/observation: Escalation of care including admission/observation considered Patient's disposition will be determined after CARE team evaluation. Lab Data [facility] Lab Attestation statement: I reviewed the patient's lab results. My interpretation of these results are in the [facility] Rationale portion of this note. 11/17/24 15:12 11/17/24 15:12 Labs: Lab Results 09/04/25 Range/Units 15:12 WBC 12.9 H (4.8-10.8) X10*3/uL RBC 4.22 L (4.60-5.80) X10*6/uL Hgb 11.8 L (14.0-18.0) g/dl Hct 35.1 L (42.0-52.0) % MCV 83.2 (80.0-98.0) fL MCH 28.0 (27.0-33.0) pg MCHC 33.6 (31.0-36.0) g/dl RDW 13.7 (11.0-16.0) % Plt Count 285 (160-400) X10*3/uL MPV 10.1 (9.4-12.4) fL Immature Gran % (Auto) 0.3 (0.0-0.4) % Neut % (Auto) 71.7 (45-73) % Lymph % (Auto) 16.4 L (20-40) % [place] % (Auto) 10.9 (2-11) % Eos % (Auto) 0.5 (0-4) % Baso % (Auto) 0.2 (0-2) % Lymph # (Auto) 2.1 (1.2-4.9) X10*3/uL [place] # (Auto) 1.4 H (0.1-1.2) X10*3/uL Eos # (Auto) 0.1 (0.0-0.4) X10*3/uL Baso # (Auto) 0.0 (0.0-0.2) X10*3/uL Abs Immat Gran (auto) 0.04 H (0.00-0.03) X10*3/uL Absolute Neuts (auto) 9.3 H (2.0-8.3) x10*3/uL Absolute Nucleated RBC 0.000 (0.0-0.012) X10*3/uL Nucleated RBC % (auto) 0.0 (0.0-0.2) /100WBC Sodium 142 (135-145) mmol/L Potassium 3.5 (3.3-5.1) mmol/L Chloride 108 (96-108) mmol/L Carbon Dioxide 26 (22-29) mmol/L Anion Gap 12 (12-20) BUN 18 H (9-16) mg/dL Creatinine 1.17 (0.5-1.4) mg/dL Estim Creat Clear Calc 81.0 Estimated GFR > 60 Random Glucose 111 (60-115) mg/dL Calcium 9.0 D (8.4-10.2) mg/dL Total Bilirubin 0.4 (0.0-1.0) mg/dL AST 78 H (5-37) U/L ALT 36 (0-40) U/L Alkaline Phosphatase 61 (39-117) U/L Total Protein 8.0 (6.5-8.0) g/dL Albumin 4.9 (3.5-5.0) g/dL Salicylates < 5.0 L (15-30) mg/dL Acetaminophen < 3 (<30) mcg/mL Ethyl Alcohol < 10 mg/dL Independent Historian Clinical information obtained from an independent historian. History obtained from or confirmed by: EMS (EMS provided additional history and confirmed the history provided by the patient. ) Critical Care Time Critical Care Time Critical Care Time: Yes Total Critical Care Time: 36 Attestation: I spent 36 minutes of Critical Care Time with this patient. This does not include time spent on separately reported billable procedures. Discharge Plan Discharge Clinical Impression: Psychosis Patient Disposition: Admitted As Inpatient Interventions: [place]-Suicide Risk Severity Scale Last Done: 11/17/24 13:11
--- NOTE | 2024-11-17 13:38 | MHC.EDTECH ---
Refused vitals, blood work/urine. RN aware
--- NOTE | 2024-11-17 13:39 | MHC.EDTECH ---
Patient yelling, argumentative, not making sense. Unable to redirect patient. Security assisted with moving patient to his room. Requested patient to stay in room until he could stop yelling.
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
[2024-11-17] MEDS: diazePAM 10 MG/2 ML CARTRIDGE 5 MG IM (14:43)
--- NOTE | 2024-11-17 15:10 | PC.NURSE ---
Patient is a 34 yo male who presents from the community where he was sectioned by the PD. History of schizophrenia, depression and remote polysubstance abuse. Presents with psychosis in the face of medication non-compliance and visual hallucinations. Upon arrival, patient agitated, resistive to care, and emotionally labile. Patient persistently perseverating regarding his brother having the appearance of a demon. Communication is disorganized, manic and tangential. Patient refusing to remain in room and speaking to the staff in a non-sensical and disorganized manner. Patient unable to control his behavior or re-direct, requiring medication management.
[2024-11-17 15:18] LABS: MANUAL DIFF FLAG NO
[2024-11-17 15:24] LABS: Hematocrit 35.1 % (42.0-52.0); Hemoglobin 11.8 g/dl (14.0-18.0); Imm Gran Abs Auto 0.04 X10*3/uL (0.00-0.03); Imm Gran Pct Auto 0.3 % (0.0-0.4); Lymphocytes Absolute Auto 2.1 X10*3/uL (1.2-4.9); Mean Corpuscular HGB Conc 33.6 g/dl (31.0-36.0); Mean Corpuscular Hemoglobin 28.0 pg (27.0-33.0); Mean Corpuscular Volume 83.2 fL (80.0-98.0); NRBC Abs Auto 0.000 X10*3/uL (0.0-0.012); NRBC Pct Auto 0.0 /100WBC (0.0-0.2); Platelet Count 285 X10*3/uL (160-400); Red Blood Count 4.22 X10*6/uL (4.60-5.80); White Blood Count 12.9 X10*3/uL (4.8-10.8)
[2024-11-17 15:34] LABS: Alanine Aminotransferase 36 U/L (0-40); Albumin Level 4.9 g/dL (3.5-5.0); Alkaline Phosphatase 61 U/L (39-117); Anion Gap 12 (12-20); Aspartate Amino Transferase 78 U/L (5-37); Blood Urea Nitrogen 18 mg/dL (9-16); Calcium 9.0 mg/dL (8.4-10.2); Carbon Dioxide 26 mmol/L (22-29); Chloride 108 mmol/L (96-108); Creatinine Clr Calc Pharmacy 81.0; Estimated Glomerular Filt Rate > 60; Potassium 3.5 mmol/L (3.3-5.1); Sodium 142 mmol/L (135-145); Total Protein 8.0 g/dL (6.5-8.0)
[2024-11-17 15:36] LABS: Salicylate < 5.0 mg/dL (15-30)
--- OUTSIDE RECORDS SUMMARY | 2024-11-17 16:00 | XMS_ITS | Clinical Summary ---
Author Organization [facility] Address [address] [place] [address] Phone Care Team Providers Care Engineer Third Assistant Name Role Phone Physician, Pcp Unknown Primary Care Provider Lis vailable Allergies No known active allergies Medications No known medications Medical History Medical History Date Comments Bipolar affective (CMS/HCC V24, CMS/HCC V28) Schizoaffective disorder (CMS/HCC V24, CMS/HCC V 28) Social History Tobacco Use Types Packs/Day Years Used Date Smoking Tobacco: Never Assessed Sex and Gender Information Value Date Recorded Sex Assigned at Not on file Legal Sex Male 6:13 PM EST Gender Identity Not on file Sexual Orientation Not on file Obstetrics History Last Filed Vital Signs Vital Sign Reading Time Taken Comments Blood Pressure 111/74 08/01/2024 10:50 AM EDT Pulse 72 08/01/2024 10:50 AM EDT Temperature 36.8 C (98.2 F) 08/01/2024 10:50 AM EDT Respiratory Rate 16 08/01/2024 10:50 AM EDT Oxygen Saturation 100% 08/01/2024 10:50 AM EDT Inhaled Oxygen Concentration - - Weight 90.7 kg (200 lb) 08/01/2024 12:57 AM EDT Height 165.1 cm (5' 5 ) 08/01/2024 12:57 AM EDT Body Mass Index 33.28 08/01/2024 12:57 AM EDT Plan of Treatment Health Maintenance Due Date Last Done Comments Hepatitis A Vaccines (1 of 2 - Risk 2-dose series) 2010 Hepatitis B Vaccines (1 of 3 - 19+ 3-dose series) 2010 Cholesterol Screening (Lipid Panel) 02/15/2022 HIV Screening 02/15/2022 Hepatitis C Screening 02/15/2022 Medicare Annual Wellness Visit 02/15/2022 Social Influencers of Health Screening 02/15/2022 COVID-19 Vaccine (2 - 2023-2 5 season) 2023 04/02/2021 Depression Screening 03/16/2024 Influenza Vaccine (#1) 2024 2, 12/07/2019 DTaP,Tdap,and Td Vaccines (2 - Td or Tdap) 04/22/2031 04/22/2021 Pneumococcal Vaccine: Pediatrics (0 to 5 Years) and At-Risk Patients (6 to 49 Years) Aged Out 12/21/2018 No longer eligible b ased on patient's age to complete this topic HIB Vaccines Aged Out No longer eligi ble based on patient's age to complete this topic HPV Vaccines Aged Out No longer eligi ble based on patient's age to complete this topic IPV Vaccines Aged Out No longer eligi ble based on patient's age to complete this topic MMR Vaccines Aged Out No longer eligi ble based on patient's age to complete this topic Meningococcal ACWY Vaccine Aged Out N o longer eligible based on patient's age to complete this topic Meningococcal B Vaccine Aged Out No l onger eligible based on patient's age to complete this topic RSV Immunization Patients Under 20 months Aged Out No longer eligible b ased on patient's age to complete this topic Varicella Vaccines Aged Out No longer eligible based on patient's age to complete this topic Insurance [facility] MEDICARE Member Subscriber Plan / Payer (Ef fective 2019-Present) Name:TANK LEVINE Relation to Subscriber:Self Name:Tank Levine Payer ID:[id number] Group ID:[id number] Type:Not on file Address: [address] [id number] Care Teams Engineer Third Assistant Relationship Specialty Start Date End Date Physician, Pcp Unknown PCP - General 08/01/24
[2024-11-17 16:06] LABS: Acetaminophen LAB < 3 mcg/mL (<30)
--- NOTE | 2024-11-17 18:31 | MHC.EDTECH ---
Patient appears to be sleeping, respirations even and unlabored. Per RN do not disturb patients sleep for vital signs.
[2024-11-17 18:34] VITALS: RESP 16
[2024-11-17 19:19] VITALS: BP 120/76; PULSE 54; RESP 16; O2SAT 100
--- NOTE | 2024-11-17 19:20 | PC.NURSE ---
Addendum entered by Tonia Livingston RN 11/17/24 22:30: nurse to nurse report given to Eveline on M[facility] inpatient unit. Addendum entered by Tonia Livingston RN 11/17/24 21:52: attempted to call nurse to nurse report, RN not available per refinery operator helper crude unit will have RN call when available Addendum entered by Tonia Livingston RN 11/17/24 21:14: attempted to medicate pt per mar, pt stated he wants to wait to take the med until he is upstairs on the inpatient unit. Addendum entered by Tonia Livingston RN 11/17/24 19:56: med rec done with pt, pt confirmed only taking olanzapine and trazodone at this time. Original Note: assumed care for this pt at this time. pt noted to be resting in bed in no notable disress. pt allowed to have vitals taken, but when asked if we could obtain EKG pt refused. pts needs met at this time. plan of care ongoing.
--- NOTE | 2024-11-17 19:23 | MHC.EDTECH ---
t/w and nurse jena approached pt to obtain vs. pt hesitant but allowed nurse to obtain vs. when asked about obtaining the EKG, pt very plainly stated no BH ADMISSIONS UPDATED ON STATUS OF ORDER. RN AWARE
[2024-11-17 23:04] VITALS: RESP 18
--- NOTE | 2024-11-18 06:22 | PC.ADMIT ---
Pt is a 34 year old male admitted to [facility] after referral by the CARE Team [place] [facility] Arrived on unit at 2246, legal status: CV. Pt later signed a 3 day notice which will be up on 11/22. Dx paranoid schizophrenia. Substance use: Pt has a reported history of heroin and alcohol use, however reportedly has not used or drank in several years. Per crisis assessment, pt also has a history of marijuana use, however it is unclear if this is current as pt was unable/declined to participate in admission assessment. He did not provide a urine for VARELA in the ED due to paranoia, and also refused to have an EKG.? Precipitant: Pt was brought into the ED after being found in the parking lot of his apartment complex threatening physical harm to both himself and others. He has been non-compliant with his medications. Pt presented as paranoia and agitated and reported both AH and VH. He is delusional and believes that his brother looks like a demon. Pt continued to report SI and HI, though did not identify anyone in particular.? Upon arrival to the unit, pt presented with an irritable affect. He was paranoid and tangential, repeatedly made reference [place]. Pt declined to participate in admission assessment, therefore much information was taken from the crisis eval. Pt was cooperative with spinning frame changer and skin check, which was unremarkable. He declined to have his vitals taken. Pt went to bed, where he remained covered under the blankets for the rest of the night. He was placed on 15 min checks.? Of note: While in the ED,? pt was increasingly agitated and paranoid, unable to be redirected. He received IM haldol and valium with effect as he remained calm and was resting after administration.?
--- NOTE | 2024-11-18 08:57 | HO.PSYADMNOT ---
HPI Date of Service: 11/18/24 Chief Complaint: SECTION 12 Sources of Information: patient interviewed, chart reviewed and crisis/core team assessment reviewed HPI Subjective Notes: Lee Warning, Conditional Voluntary and 3 Day Narrative: Patient is a 34-year-old male with history of schizophrenia who presented to ER via ambulance after being found in the parking lot of his apartment complex threatening physical harm to himself and others secondary to medication noncompliance. Per crisis report, patient presented as paranoid upon arrival to ER. Reporting visual hallucinations, increased agitation, yelling at staff and was unable to be redirected. Patient was medicated with IM medications due to presentation. Patient reported that his brother looks like a demon and. Tangential and disorganized. Patient reports he has not been taking his medications. Patient has a history of decompensating when not being medication compliant. History of multiple inpatient psychiatric hospitalizations. History of opioid and marijuana use. During admission assessment, patient declined to meet with T/W in an office. Patient stood in hallway while facing wall, with his eyes closed. and his hands behind his back. Presents with loud, pressured, rapid speech. Flight of ideas. Grandiose and delusional. Patient stated, This place is corrupted. I take everything when they give it to me. 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 I'm suffocating on my breath. I'm saying my prayers. I talk to spiders and roaches. They say they love me. I'm the best student you guys trained. 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 I blew my money on crack cocaine. I'm number one in the state. Everything is in the computer . Patient denies SI/HI. Difficult to redirect in conversation. Encouraged to be medication compliant. Past Psychiatric History: hx of multiple inpatient psychiatric hospitalizations. Pt was not able to tell me his outpatient providers names. Medical Evaluation Reviewed: Yes [facility] Medical History Depression No known health problems Schizophrenia Surgical History H/O wrist surgery Family History: Unknown Social History: Lives with his mother. Substance History: hx of opioid, marijuana, alcohol and cocaine use. Trauma History: Deferred Diagnostics Vital Signs (24Hr): Vital Signs - 24 hr 11/17/24 18:34 11/17/24 19:19 11/17/24 23:04 Pulse Rate 54 Respiratory Rate 16 16 18 Blood Pressure 120/76 Pulse Oximetry 100 Oxygen Delivery Method Room Air BMI result Body Mass Index 25.8 Labs 11/17/24 15:12 11/18/24 12:20 Labs: Laboratory Results - last 48 hr 11/17/24 15:12 WBC 12.9 H RBC 4.22 L Hgb 11.8 L Hct 35.1 L MCV 83.2 MCH 28.0 MCHC 33.6 RDW 13.7 Plt Count 285 MPV 10.1 Immature Gran % (Auto) 0.3 Neut % (Auto) 71.7 Lymph % (Auto) 16.4 L [place] % (Auto) 10.9 Eos % (Auto) 0.5 Baso % (Auto) 0.2 Lymph # (Auto) 2.1 [place] # (Auto) 1.4 H Eos # (Auto) 0.1 Baso # (Auto) 0.0 Abs Immat Gran (auto) 0.04 H Absolute Neuts (auto) 9.3 H Absolute Nucleated RBC 0.000 Nucleated RBC % (auto) 0.0 Sodium 142 Potassium 3.5 Chloride 108 Carbon Dioxide 26 Anion Gap 12 BUN 18 H Creatinine 1.17 Estim Creat Clear Calc 81.0 Estimated GFR > 60 Random Glucose 111 Calcium 9.0 D Total Bilirubin 0.4 AST 78 H ALT 36 Alkaline Phosphatase 61 Total Protein 8.0 Albumin 4.9 Salicylates < 5.0 L Acetaminophen < 3 Ethyl Alcohol < 10 Meds/Allergies Allergies Allergies Allergy/AdvReac Type Severity Reaction Status Date / Time No Known Allergies Allergy Verified 11/17/24 13:10 Mental Status Exam Mental Status Exam Patient Appearance: Appropriate Patient Orientation: Person, Place, Time and Situation Level of Consciousness: Awake and Alert Patient Behavior: Guarded, Suspicious and Poor Eye Contact Mood Description: Suspicious and Labile Affect Description: Angry Ability to Follow Directions: Good Speech Pattern: Clear, Rambling, Rapid, Loud and Pressured Delusions: Paranoid Ideation and Grandiose Thought Process: Racing Thought Content: positive for Flight of Ideas and positive for Tangential Assessment & Plan Assessment & Plan (1) Schizophrenia, paranoid: Status: Acute Code(s): F20.0 - Paranoid schizophrenia Plan Patient is a 34-year-old male with history of schizophrenia who presented to ER via ambulance after being found in the parking lot of his apartment complex threatening physical harm to himself and others secondary to medication noncompliance. Plan: 15 minute safety checks obtain collateral continue home medications. encourage medication compliance encourage groups discharge planning Patient educated on: diagnosis and medication risk/benefits Reason for continued inpatient stay Substantial Risk for: med/psych decompensation Statement Statement: I have reviewed the history and physical and performed a pertinent examination on my patient. No changes have occurred unless specified. If the History and Physical was not performed prior to admission, the Hospitalist's service will be consulted for completing the admission physical. Time Spent With Patient Time: Total time managing care of this patient today __60__ minutes.
--- NOTE | 2024-11-18 11:32 | ECG_ITS ---
Test Reason : cp Blood Pressure : */* mmHG Vent. Rate : 71 BPM Atrial Rate : 71 BPM P-R Int : 174 ms QRS Dur : 92 ms QT Int : 390 ms P-R-T Axes : 2 25 24 degrees QTcB Int : 423 ms Normal sinus rhythm Normal ECG When compared with ECG of 05-Apr-2023 09:48, No significant change was found Referred By: Fabiana Devlin Electronically Signed By: Jorge Mcclendon
[2024-11-18 12:47] LABS: Hemoglobin A1C 120.0415 umol/L; Total Hemoglobin (HGBA1C) 3227.9133 umol/L
[2024-11-18 13:02] LABS: Alanine Aminotransferase 36 U/L (0-40); Albumin Level 4.5 g/dL (3.5-5.0); Alkaline Phosphatase 59 U/L (39-117); Anion Gap 13 (12-20); Aspartate Amino Transferase 71 U/L (5-37); Blood Urea Nitrogen 15 mg/dL (9-16); Calcium 8.7 mg/dL (8.4-10.2); Carbon Dioxide 26 mmol/L (22-29); Chloride 105 mmol/L (96-108); Cholesterol 135 mg/dL (<200); Creatinine Clr Calc Pharmacy 81.0; Estimated Glomerular Filt Rate > 60; HDL Cholesterol 36 mg/dL (>40); Potassium 3.7 mmol/L (3.3-5.1); Sodium 140 mmol/L (135-145); Total Protein 7.6 g/dL (6.5-8.0); Triglycerides 76 mg/dL (<150)
[2024-11-18 13:20] LABS: Free T4 (Free Thyroxine) 1.04 ng/dL (0.71-1.85); Thyroid Stimulating Hormone 1.16 uIU/mL (0.32-4.0)
[2024-11-18 13:50] LABS: Appearance Urine Clear; Glucose Urine UA Negative (Negative); PH 6.0 (5.0-9.0); Specific Gravity - Urine 1.010 (1.005-1.025)
[2024-11-18 14:14] LABS: Cannabinoid Screen Urine POSITIVE (Not Detect)
[2024-11-18 20:00] VITALS: BP 135/88; PULSE 70; RESP 16; TEMP 36.8; O2SAT 97
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
[2024-11-19 08:00] VITALS: BP 158/84; PULSE 64; RESP 18; TEMP 36.7; O2SAT 100
[2024-11-19 20:00] VITALS: BP 127/87; PULSE 80; RESP 18; TEMP 36.8; O2SAT 96
[2024-11-20 08:00] VITALS: BP 126/82; PULSE 79; RESP 14; TEMP 36.4; O2SAT 100
--- NOTE | 2024-11-20 11:33 | HO.PSYCHPN ---
Subjective Subjective Date of Service: 11/20/24 Reason For Visit: SECTION 12 Interim History: met with patient. Discussed with Nursing. does appear less labile and agitated and intense mood brown today. Has been more redirectable. Did sleep better. Reports he is feeling good and wanting to start playing golf 1 day as an acitivity/hobbie, otherwise there was nothing else on his mind question brown Medication Compliance: Yes Side effects from medications: No Attending Groups: Intermittent Review of Systems Acute medical concerns: No Review of Systems Review of Systems Unremarkable Mental Status Exam Mental Status Exam Patient Appearance: Appropriate Patient Orientation: Person, Place, Time and Situation Level of Consciousness: Awake and Alert Patient Behavior: Guarded, Talkative, Suspicious and Poor Eye Contact Mood Description: Labile ( less) Affect Description: Angry Ability to Follow Directions: Fair Speech Pattern: Clear, Rapid ( less), Loud and Pressured Diagnostics Vital Signs (24Hr): Vital Signs - 24 hr 11/19/24 20:00 11/20/24 08:00 Temperature 98.3 F 97.6 F Pulse Rate 80 79 Respiratory Rate 18 14 Blood Pressure 127/87 126/82 Pulse Oximetry 96 100 Oxygen Delivery Method Room Air Room Air BMI result Body Mass Index 25.8 Labs 11/17/24 15:12 11/18/24 12:20 Labs: Laboratory Results - last 48 hr 11/18/24 11/18/24 12:20 13:30 Sodium 140 Potassium 3.7 Chloride 105 Carbon Dioxide 26 Anion Gap 13 BUN 15 Creatinine 1.17 Estim Creat Clear Calc 81.0 Estimated GFR > 60 Random Glucose 89 Estimat Average Glucose 114 Hemoglobin A1c % 5.6 Calcium 8.7 Total Bilirubin 0.3 AST 71 H ALT 36 Alkaline Phosphatase 59 Total Protein 7.6 Albumin 4.5 Triglycerides 76 Cholesterol 135 LDL Cholesterol, Calc 84 HDL Cholesterol 36 L TSH 1.16 Free T4 1.04 Urine Color Yellow Urine Appearance Clear Urine pH 6.0 Ur Specific [place] 1.010 Urine Protein Negative Urine Glucose (UA) Negative Urine Ketones Negative Urine Blood Negative Urine Nitrite Negative Ur Leukocyte Esterase Negative Urine Opiates Screen Not Detected Ur Buprenorphine Scrn Not Detected Ur Oxycodone Screen Not Detected Urine Methadone Screen Not Detected Urine Fentanyl Screen POSITIVE H Ur Barbiturates Screen Not Detected Ur Phencyclidine Scrn Not Detected Ur Amphetamines Screen Not Detected U Benzodiazepines Scrn Not Detected Urine Cocaine Screen POSITIVE H U Marijuana (THC) Screen POSITIVE H Medications Medications Current Medications Acetaminophen (Acetaminophen 325 Mg Tablet) 650 mg PO Q6H PRN PRN Reason: Headache/Pain, Scale 1-10 Last Admin: 11/19/24 20:45 Dose: 650 mg Al Hydroxide/Mg Hydroxide (Magnesium Hydrox/Alum Hydrox 30 Ml Oral.Susp) 30 ml PO Q6H PRN PRN Reason: Heartburn/Nausea Benztropine Mesylate (Benztropine Mesylate 1 Mg Tablet) 1 mg PO BID PRN PRN Reason: Extrapyramidal Effects Hydroxyzine HCl (Hydroxyzine Hcl 25 Mg Tablet) 25 mg PO Q6H PRN PRN Reason: mild anxiety Magnesium Hydroxide (Milk Of Magnesia 30 Ml Oral.Susp) 30 ml PO DAILY PRN PRN Reason: Constipation Nicotine (Nicotine 21 Mg Patch.Td24) 21 mg TRANSDERMA DAILY PRN PRN Reason: nicotine craving Olanzapine (Olanzapine 5 Mg Tablet) 5 mg PO BID PRN PRN Reason: agitation Last Admin: 11/19/24 10:34 Dose: 5 mg Olanzapine (Olanzapine 10 Mg Tablet) 20 mg PO BEDTIME DELFIN Last Admin: 11/19/24 20:45 Dose: 20 mg Trazodone HCl (Trazodone Hcl 50 Mg Tablet) 50 mg PO BEDTIME MRX1 PRN PRN Reason: Insomnia Last Admin: 11/18/24 20:36 Dose: 50 mg Allergies Allergies Allergy/AdvReac Type Severity Reaction Status Date / Time No Known Allergies Allergy Verified 11/17/24 13:10 Assessment & Plan Assessment & Plan (1) Schizophrenia, paranoid: Status: Acute Code(s): F20.0 - Paranoid schizophrenia Plan Patient is a 34-year-old male with history of schizophrenia who presented to ER via ambulance after being found in the parking lot of his apartment complex threatening physical harm to himself and others secondary to medication noncompliance. Plan: 15 minute safety checks obtain collateral continue home medications. encourage medication compliance encourage groups discharge planning 11/19/2024: No changes to current management plan and continue to encourage ongoing adherence with olanzapine and accepting of as needed doses 11/20/2024: Maintain current treatment as does appear to be showing early response Reason for continued inpatient stay Substantial Risk for: inability to function Time Spent With Patient Time: Total time managing care of this patient today ____ minutes.
[2024-11-20 20:00] VITALS: BP 146/79; PULSE 70; RESP 16; TEMP 36.9; O2SAT 98
[2024-11-21 07:42] VITALS: BP 151/78; PULSE 72; RESP 16; TEMP 36.2; O2SAT 99
--- NOTE | 2024-11-21 14:19 | HO.PSYCHPN ---
Subjective Subjective Date of Service: 11/21/24 Reason For Visit: SECTION 12 Subjective Notes: 3 Day Healthcare Proxy: No Guardianship: No Medical Problems Affecting Mental Status: No Interim History: Medical record and nursing notes reviewed; case discussed during rounds with team/nursing staff, and met with patient for supportive therapy/psychoeducation, as well as medication management. Patient slept well, no issue with appetite. Compliant with medications, denies side effects except for weight gain. Educate patient on healthy diet, healthy choices, and portion size, being active. Patient reported that he knows that he loves talking, and sometimes he scares people because about it. Reports that he used substances prior to coming to the hospital due to stress related to bank account. Reported that sometimes he feel spiritual in him and something inside of him distracted him, and that he can not focus. Educate patient on compliant with medication consistently so the mood and the spiritual in him can be reduced, and minimize. Patient is receptive with the plan. Attended groups, social and appropriate with peers and staff, hypo verbal, calm and pleasant. Discussed with patient regarding medication was sent home with tomorrow. He will stay with his grand mother upon discharge. No safety concerns. Medication Compliance: Yes Side effects from medications: No Attending Groups: Yes Review of Systems Acute medical concerns: No Medical Review of Systems: unchanged Review of Systems Review of Systems Constitutional: Denies fatigue and Denies fever(s) Cardiovascular: Denies chest pain and Denies dyspnea Respiratory: Denies dyspnea Gastrointestinal: Denies abdominal pain Psychiatric: denies suicidal ideation Endocrine: Denies fatigue Yes all other systems are reviewed and are negative Mental Status Exam Mental Status Exam Patient Appearance: Appropriate Patient Orientation: Person, Place, Time and Situation Level of Consciousness: Awake and Alert Patient Behavior: Appropriate, Talkative, Hyperactive and Good Eye Contact Mood Description: Happy and Appropriate Affect Description: Happy, Appropriate and Relaxed Ability to Follow Directions: Fair Speech Pattern: Clear, Spontaneous Speech and Pressured (Mild and improved) Memory Description: Intact Hallucinations: None Delusions: Not Present Thought Process: Intact Thought Content: positive for Intact Abnormal Motor Activity Signs and Symptoms: Hyperactivity (hypomanic but pleasant) Judgement: Fair Diagnostics Vital Signs (24Hr): Vital Signs - 24 hr 11/20/24 20:00 11/21/24 07:42 Temperature 98.4 F 97.2 F Pulse Rate 70 72 Respiratory Rate 16 16 Blood Pressure 146/79 H 151/78 H Pulse Oximetry 98 99 Oxygen Delivery Method Room Air Room Air BMI result Body Mass Index 25.8 Labs 11/17/24 15:12 11/18/24 12:20 Medications Medications Current Medications Acetaminophen (Acetaminophen 325 Mg Tablet) 650 mg PO Q6H PRN PRN Reason: Headache/Pain, Scale 1-10 Last Admin: 11/19/24 20:45 Dose: 650 mg Al Hydroxide/Mg Hydroxide (Magnesium Hydrox/Alum Hydrox 30 Ml Oral.Susp) 30 ml PO Q6H PRN PRN Reason: Heartburn/Nausea Benztropine Mesylate (Benztropine Mesylate 1 Mg Tablet) 1 mg PO BID PRN PRN Reason: Extrapyramidal Effects Hydroxyzine HCl (Hydroxyzine Hcl 25 Mg Tablet) 25 mg PO Q6H PRN PRN Reason: mild anxiety Magnesium Hydroxide (Milk Of Magnesia 30 Ml Oral.Susp) 30 ml PO DAILY PRN PRN Reason: Constipation Nicotine (Nicotine 21 Mg Patch.Td24) 21 mg TRANSDERMA DAILY PRN PRN Reason: nicotine craving Olanzapine (Olanzapine 5 Mg Tablet) 5 mg PO BID PRN PRN Reason: agitation Last Admin: 11/19/24 10:34 Dose: 5 mg Olanzapine (Olanzapine 10 Mg Tablet) 20 mg PO BEDTIME DELFIN Last Admin: 11/20/24 20:35 Dose: 20 mg Trazodone HCl (Trazodone Hcl 50 Mg Tablet) 50 mg PO BEDTIME MRX1 PRN PRN Reason: Insomnia Last Admin: 11/20/24 20:49 Dose: 50 mg Allergies Allergies Allergy/AdvReac Type Severity Reaction Status Date / Time No Known Allergies Allergy Verified 11/17/24 13:10 Assessment & Plan Assessment & Plan (1) Schizophrenia, paranoid: Status: Acute Code(s): F20.0 - Paranoid schizophrenia Plan Patient is a 34-year-old male with history of schizophrenia who presented to ER via ambulance after being found in the parking lot of his apartment complex threatening physical harm to himself and others secondary to medication noncompliance. Plan: 15 minute safety checks obtain collateral continue home medications. encourage medication compliance encourage groups discharge planning 11/19/2024: No changes to current management plan and continue to encourage ongoing adherence with olanzapine and accepting of as needed doses 11/20/2024: Maintain current treatment as does appear to be showing early response. 11/21/24: Patient slept well, no issue with appetite. Compliant with medications, denies side effects except for weight gain. Educate patient on healthy diet, healthy choices, and portion size, being active. Patient reported that he knows that he loves talking, and sometimes he scares people because about it. Reports that he used substances prior to coming to the hospital due to stress related to bank account. Reported that sometimes he feel spiritual in him and something inside of him distracted him, and that he can not focus. Educate patient on compliant with medication consistently so the mood and the spiritual in him can be reduced, and minimize. Patient is receptive with the plan. Attended groups, social and appropriate with peers and staff, hypo verbal, calm and pleasant. Discussed with patient regarding medication was sent home with tomorrow. He will stay with his grand mother upon discharge. No safety concerns. Patient educated on: diagnosis, medication risk/benefits, substance abuse and therapeutic strategies Informed Consent: understands Reason for continued inpatient stay Substantial Risk for: med/psych decompensation Time Spent With Patient Time: Total time managing care of this patient today ____ minutes.
[2024-11-21 20:00] VITALS: BP 140/63; PULSE 79; RESP 16; TEMP 36.8; O2SAT 99
[2024-11-22 07:46] VITALS: BP 126/72; PULSE 72; RESP 20; TEMP 36.3; O2SAT 98
--- NOTE | 2024-11-22 09:21 | PM.PSYDC ---
DS: Providers Provider Date of Service: 11/22/24 Date of admission: 11/17/24 19:34 Date of discharge: 11/22/24 Primary care physician: Unknown Physician Attending physician on admission: Fabiana Devlin Attending physician on discharge: Olga Oconnell DS: Diagnosis Discharge Diagnosis (1) Schizophrenia, paranoid: Status: Acute DS: Medications Discharge Medications Home Medications: Previous Rx's ?Medication ?Instructions ?Recorded olanzapine 2.5 mg tablet 2.5 mg PO BID PRN Agitation/voices 11/21/24 30 days #60 tabs olanzapine 20 mg tablet 20 mg PO BEDTIME psychosis /Mood 11/21/24 30 days #30 tabs trazodone 50 mg tablet 50 mg PO BEDTIME PRN Insomnia 30 11/21/24 days #30 tabs Mental Status Exam Mental Status Exam Narrative: Patient presents well-groomed, casually dressed. Affect is euthymic with constricted range. Speech is clear and coherent. Thought process is linear and logical. Thought content is appropriate and relevant. Patient denies suicidal or homicidal ideation intent or plan. No overt psychotic symptoms elicited. Insight is fair. Judgment is fair. Data Data Completed and Pending Completed studies during hospitalization [Text1]: 11/17/24 11/18/24 11/18/24 15:12 12:20 13:30 WBC 12.9 H RBC 4.22 L Hgb 11.8 L Hct 35.1 L MCV 83.2 MCH 28.0 MCHC 33.6 RDW 13.7 Plt Count 285 MPV 10.1 Immature Gran % (Auto) 0.3 Neut % (Auto) 71.7 Lymph % (Auto) 16.4 L [place] % (Auto) 10.9 Eos % (Auto) 0.5 Baso % (Auto) 0.2 Lymph # (Auto) 2.1 [place] # (Auto) 1.4 H Eos # (Auto) 0.1 Baso # (Auto) 0.0 Abs Immat Gran (auto) 0.04 H Absolute Neuts (auto) 9.3 H Absolute Nucleated RBC 0.000 Nucleated RBC % (auto) 0.0 Sodium 142 140 Potassium 3.5 3.7 Chloride 108 105 Carbon Dioxide 26 26 Anion Gap 12 13 BUN 18 H 15 Creatinine 1.17 1.17 Estim Creat Clear Calc 81.0 81.0 Estimated GFR > 60 > 60 Random Glucose 111 89 Estimat Average Glucose 114 Hemoglobin A1c % 5.6 Calcium 9.0 D 8.7 Total Bilirubin 0.4 0.3 AST 78 H 71 H ALT 36 36 Alkaline Phosphatase 61 59 Total Protein 8.0 7.6 Albumin 4.9 4.5 Triglycerides 76 Cholesterol 135 LDL Cholesterol, Calc 84 HDL Cholesterol 36 L TSH 1.16 Free T4 1.04 Urine Color Yellow Urine Appearance Clear Urine pH 6.0 Ur Specific [place] 1.010 Urine Protein Negative Urine Glucose (UA) Negative Urine Ketones Negative Urine Blood Negative Urine Nitrite Negative Ur Leukocyte Esterase Negative Salicylates < 5.0 L Urine Opiates Screen Not Detected Ur Buprenorphine Scrn Not Detected Ur Oxycodone Screen Not Detected Urine Methadone Screen Not Detected Urine Fentanyl Screen POSITIVE H Acetaminophen < 3 Ur Barbiturates Screen Not Detected Ur Phencyclidine Scrn Not Detected Ur Amphetamines Screen Not Detected U Benzodiazepines Scrn Not Detected Urine Cocaine Screen POSITIVE H U Marijuana (THC) Screen POSITIVE H Ethyl Alcohol < 10 DS: Summary Hospital Course Hospital Course: Per admitting provider note: Patient is a 34-year-old male with history of schizophrenia who presented to ER via ambulance after being found in the parking lot of his apartment complex threatening physical harm to himself and others secondary to medication noncompliance. 11/19/2024: No changes to current management plan and continue to encourage ongoing adherence with olanzapine and accepting of as needed doses 11/20/2024: Maintain current treatment as does appear to be showing early response. 11/21/24: Patient slept well, no issue with appetite. Compliant with medications, denies side effects except for weight gain. Educate patient on healthy diet, healthy choices, and portion size, being active. Patient reported that he knows that he loves talking, and sometimes he scares people because about it. Reports that he used substances prior to coming to the hospital due to stress related to bank account. Reported that sometimes he feel spiritual in him and something inside of him distracted him, and that he can not focus. Educate patient on compliant with medication consistently so the mood and the spiritual in him can be reduced, and minimize. Patient is receptive with the plan. Attended groups, social and appropriate with peers and staff, hypo verbal, calm and pleasant. Discussed with patient regarding medication was sent home with tomorrow. He will stay with his grand mother upon discharge. No safety concerns. 11/22/24: Patient discharged on 3 day notice. No imminent risk to self or others. Therefore he does not meet criteria for civil commitment. Patient will be discharged home with family. Psychosis symptoms has been improve, has been compliant with medication. Some residual hypomanic, limited seem mind, no other safety concerns. Continue educate patient on healthy diet to prevent weight gain from Zyprexa which 1 of the reason that prevent him taking it consistently before coming to the hospital. Patient states he will not use any substances after discharge. Time spent discussing smoking cessation with patient: 3 to 10 minutes Status at Discharge Cognitive/behavioral status at discharge: CONDITION ON DISCHARGE: CURRENT STATUS IT RELATES TO ADMISSION CRITERIA: Stable, improved. Improvements in depression, anxiety. Improvements in sleep, energy, and appetite. and no hallucination or paranoia/delusional thought. Slightly hyperverbal which could be at baseline. Functional status at discharge: independent ambulation Overall status at discharge: patient is progressing back to baseline Time Spent with Patient Time attestation: Total time managing care of this patient today ____ minutes. Time spent: Greater than 30 minutes Discharge Plan Discharge Anticipated Discharge Date/Time: 11/22/24 09:20 Patient Disposition: Home, Self-Care Discharge Diagnosis: Schizophrenia Referrals: Therapy & Psychiatry [Other] - 11/25/24 1:00 pm Referral Note: *Please follow up with your outpatient mental health providers through the [facility]. [facility] [Provider Group] - 1 Week Referral Note: 11-21-24 [facility] was added to patients chart. Please call [phone] to schedule a follow up appt within 7-10 days of discharge. No release or PCP on file Discharge Medications: Continued trazodone 50 mg Tablet 50 mg PO BEDTIME PRN (Reason: Insomnia) 30 Days Qty: 30 0RF olanzapine 2.5 mg Tablet 2.5 mg PO BID PRN (Reason: Agitation/voices) 30 Days Qty: 60 0RF olanzapine 20 mg tablet 20 mg PO BEDTIME 30 Days Qty: 30 0RF Discharge Orders: Discharge Order (Routine); Ordered 11/22/24 Ordered By: Olga Oconnell Diet: Regular diet Activity on Discharge: As tolerated Stand Alone Forms: Patient Portal Discharge page, Community Support Print Language: German Care Plan Goals: Maintain mood and safe behaviors Take medications as prescribed Continue to pursue sobriety Practice coping skills Continue with outpatient providers and reach out to them as needed Health Concerns: Mood stability and behaviors Sobriety Plan of Treatment: Follow up with your PCP, psychiatric provider and other outpatient providers regarding above concerns Take medications as prescribed Assessment: Assessment: Risk assessment at time of discharge: Patient was interviewed prior to discharge and found to be fully oriented and without any SI or HI. Patient has improved insight and judgment and wants to continue treatment. Patient is not in imminent risk of harm to self or others and has a safety plan that includes presenting to the closest ER or calling 911 if feeling unsafe. Patient has been observed closely by nursing and unit staff throughout admission; patient has not engaged in any behaviors that suggest dangerousness to self or others and has demonstrated appropriate behaviors and impulse control Discharge Date/Time: 11/22/24 10:00
== END 2024-11-22 10:00 | disposition home or self-care (01) | DRG 885 ==
LOC: HO.ED 14:48 → HO.PADLT16 20:08
PROVIDERS: Physician Assistant Medical; Admitting Provider Nurse Practitioner Psychiatric/Mental Health; Emergency Provider Emergency Medicine; Visit Provider Nurse Practitioner Psychiatric/Mental Health
DX: F20.0 Paranoid schizophrenia (principal); Z87.891 Personal history of nicotine dependence; Z79.899 Other long term (current) drug therapy
CPT/HCPCS: 36415; 80053; 80061; 80143; 80179; 80307; 81003; 83036; 84439; 84443; 85025; 93005; 99285; J1630; J3360; S9485

== ENCOUNTER 2024-11-17 19:34 | Outpatient (BNV) | payer OTHER, SELFPAY | END 2024-11-18 11:32 | PROVIDERS: Admitting Provider Nurse Practitioner Psychiatric/Mental Health; Emergency Provider Emergency Medicine; Visit Provider Internal Medicine Cardiovascular Disease | DX: R07.9 Chest pain, unspecified (principal) | CPT/HCPCS: 93010 ==

== ENCOUNTER → 2024-11-17 19:34 | Outpatient (BNV) | payer OTHER, SELFPAY | PROVIDERS: Admitting Provider Nurse Practitioner Psychiatric/Mental Health; Emergency Provider Emergency Medicine; Visit Provider Registered Nurse | DX: F20.0 Paranoid schizophrenia (principal) | CPT/HCPCS: 90792 ==